=== PATIENT | male | born 1945 | race Caucasian/White ===

== ENCOUNTER 2017-06-03 09:30 | Inpatient (IN) | payer MEDICARE ==
[~2017-06-03] VITALS: Ht 180.3 cm; Wt 79.8 kg
[2017-06-03] VITALS (12 sets, daily range): BP systolic 99–144; BP diastolic 57–96; PULSE 65–169; RESP 20–32; TEMP 98.1–100.2; O2SAT 95–100
--- NOTE | 2017-06-03 10:01 | PD ---
HPI Chief Complaint: Respiratory Distress Time Seen by Provider: 09:39 Travel History International Travel<30 days: No Contact w/Intl Traveler<30days: No Traveled to known affect area: No History of Present Illness HPI This is a 71-year-old gentleman with a history of tobacco use, unknown past medical history, who presents today the EMS with cough and shortness of breath. The patient states that he's been in bed since Thursday. He states he's been weak and short of breath since then. When paramedics arrived they found his O2 sat to be 82. He is placed on 100% nonrebreather which brought up to 99%. He also reports low-grade fevers. The patient felt better with the O2. She has not seen a doctor since 2007. He says at that time he had no medical issues. He does smoke half pack of cigarettes and states he drinks one to 2 beers per day. [facility] Social History Tobacco Use: Yes Allergies-Medications (Allergen,Severity, Reaction): Coded Allergies: No Known Allergies (Unverified , 06/03/17) Reported Meds & Prescriptions Reported Meds & Active Scripts Active No Active Prescriptions or Reported Medications Review of Systems Except as stated in HPI: all other systems reviewed are Neg General / Constitutional: Positive: Fever, Chills HENT: Positive: Lightheadedness, No: Headaches, Neck Stiffness, Neck Pain Cardiovascular: Positive: Tachycardia, No: Chest Pain or Discomfort, Palpitations Respiratory: Positive: Cough (productive with yellow phlegm), Shortness of Breath, Wheezing Gastrointestinal: No: Nausea, Vomiting, Abdominal Pain Musculoskeletal: Positive: Weakness, No: Pain Skin: Positive Lesions (chronic son skin changes on her torso and back.) Neurologic: Positive: Weakness, No: Dizziness, Headache, Change in Mentation Physical Exam Narrative GENERAL: Thin ill appearing gentleman in moderate respiratory discomfort. SKIN: Focused skin assessment warm/dry. HEAD: Atraumatic. Normocephalic. EYES: No scleral icterus. No injection or drainage. ENT: No nasal bleeding or discharge. Mucous membranes pink and moist. NECK: Trachea midline. No JVD. Supple. CARDIOVASCULAR: Tachycardic with normal rhythm. No murmur appreciated. RESPIRATORY: Coarse rhonchi bilaterally. Questionable Rales at the bilateral bases. Tachypnea. GASTROINTESTINAL: Abdomen soft, non-tender, nondistended. MUSCULOSKELETAL: No obvious deformities. No clubbing. No cyanosis. No edema. NEUROLOGICAL: Awake and alert. No obvious cranial nerve deficits. Motor grossly within normal limits. Normal speech. PSYCHIATRIC: Appropriate mood and affect; insight and judgment normal. Data Data Last Documented VS Vital Signs Date Time Temp Pulse Resp B/P Pulse Ox O2 Delivery O2 Flow Rate FiO2 06/03/17 10:00 108 24 144/74 98 Nasal Cannula 4 06/03/17 09:30 100.2 Orders Electrocardiogram (06/03/17 09:39) Complete Blood Count With Diff (06/03/17 09:39) Comprehensive Metabolic Panel (06/03/17 09:39) Lactic Acid Sepsis Protocol (06/03/17 09:39) Ckmb (Isoenzyme) Profile (06/03/17 09:39) Troponin I (06/03/17 09:39) Urinalysis - C+S If Indicated (06/03/17 09:39) Blood Culture (06/03/17 09:39) Sputum Culture And Gram Stain (06/03/17 09:39) Chest, Single Ap (06/03/17 09:39) Arterial Blood Gas (Abg) (06/03/17 09:39) Blood Glucose (06/03/17 09:39) Ecg Monitoring (06/03/17 09:39) Iv Access Insert/Monitor (06/03/17 09:39) Oximetry (06/03/17 09:39) Oxygen Administration (06/03/17 09:39) Ceftriaxone Inj (Rocephin Inj) (06/03/17 11:38) Azithromycin Inj (Zithromax Inj) (06/03/17 11:38) Sodium Chlor 0.9% 1000 Ml Inj (Ns 1000 M (06/03/17 12:30) Admit Order (Ed Use Only) (06/03/17 12:52) Labs Laboratory Tests Test 06/03/17 09:45 White Blood Count 20.0 TH/MM3 Red Blood Count 4.80 MIL/MM3 Hemoglobin 14.4 GM/DL Hematocrit 44.3 % Mean Corpuscular Volume 92.3 FL Mean Corpuscular Hemoglobin 29.9 PG Mean Corpuscular Hemoglobin 32.4 % Concent Red Cell Distribution Width 14.4 % Platelet Count 292 TH/MM3 Mean Platelet Volume 10.7 FL Neutrophils (%) (Auto) 87.1 % Lymphocytes (%) (Auto) 3.7 % Monocytes (%) (Auto) 8.9 % Eosinophils (%) (Auto) 0.0 % Basophils (%) (Auto) 0.3 % Neutrophils # (Auto) 17.4 TH/MM3 Lymphocytes # (Auto) 0.7 TH/MM3 Monocytes # (Auto) 1.8 TH/MM3 Eosinophils # (Auto) 0.0 TH/MM3 Basophils # (Auto) 0.1 TH/MM3 CBC Comment AUTO DIFF Differential Comment AUTO DIFF CONFIRMED Platelet Estimate NORMAL Platelet Morphology Comment NORMAL Blood Gas Puncture Site RT RADIAL Blood Gas Patient Temperature 98.6 Blood Gas HCO3 29 mmol/L Blood Gas Base Excess 3.4 mmol/L Blood Gas Oxygen Saturation 95 % Arterial Blood pH 7.36 Arterial Blood Partial 52 mmHg Pressure CO2 Arterial Blood Partial 93 mmHg Pressure O2 Arterial Blood Oxygen Content 19.2 Vol % Arterial Blood 1.6 % Carboxyhemoglobin Arterial Blood Methemoglobin 0.8 % Blood Gas Hemoglobin 14.4 G/DL Oxygen Delivery Device NASAL CANNULA Blood Gas Liter Flow 4 L/M Sodium Level 138 MEQ/L Potassium Level 4.7 MEQ/L Chloride Level 100 MEQ/L Carbon Dioxide Level 29.5 MEQ/L Anion Gap 9 MEQ/L Blood Urea Nitrogen 33 MG/DL Creatinine 1.16 MG/DL Estimat Glomerular Filtration 62 ML/MIN Rate Random Glucose 126 MG/DL Lactic Acid Level 1.6 mmol/L Calcium Level 9.7 MG/DL Total Bilirubin 0.8 MG/DL Aspartate Amino Transf 29 U/L (AST/SGOT) Alanine Aminotransferase 27 U/L (ALT/SGPT) Alkaline Phosphatase 78 U/L Total Creatine Kinase 59 U/L Troponin I LESS THAN 0.02 NG/ML Total Protein 8.2 GM/DL Albumin 3.0 GM/DL [facility] Medical Decision Making Medical Screen Exam Complete: Yes Emergency Medical Condition: Yes Differential Diagnosis Pneumonia versus CHF versus rhonchi this versus sepsis versus metabolic derangement Narrative Course 71-year-old male with a history of tobaccoism, presents today with complaints of fever and cough. When paramedics arrived they found his O2 sat to be 82%. He placed him on nonrebreather which brought his sats up to 99%. The patient states he feels much improved. He states he's been in bed for 4 days. Chest x- ray shows chronic emphysematous changes. Clinically he has pneumonia. He's been started on Rocephin and Zithromax. Lactic acid was 1.6 white blood cell count was 20,000. There is a call out to the admitting service for admission. Sepsis Criteria SIRS Criteria (2 or more): Heart rate over 90, RR > 20 or PaCO2 < 32, WBC > 94761, < 4000 or > 10% bands Diagnosis Primary Impression: Sepsis Additional Impressions: Pneumonia Hypoxemia Tobacco abuse Admitting Information Admitting Physician Requests: Admit Scripts No Active Prescriptions or Reported Meds Samuel Raya MD Jun 03, 2017 10:01
[2017-06-03 10:02] LABS: BLOOD GAS BASE EXCESS 3.4 mmol/L (-2-2); BLOOD GAS CARBOXYHEMOGLOBIN 1.6 % (0-4); BLOOD GAS HCO3 29 mmol/L (22-26); BLOOD GAS METHEMOGLOBIN 0.8 % (0-2); BLOOD GAS O2 HGB SATURATION 95 % (90-100); BLOOD GAS OXYGEN CONTENT 19.2 Vol % (12.0-20.0); BLOOD GAS PCO2 52 mmHg (38-42); BLOOD GAS PO2 93 mmHg (61-120); BLOOD GAS TOTAL HGB 14.4 G/DL (12.0-16.0); CRITICAL VALUE YES; DRAW SITE RT RADIAL; LITER FLOW 4 L/M; OXYGEN DEVICE NASAL CANNULA; TEMP CORR TO 98.6
[2017-06-03 10:03] LABS: NUMBER OF ARTERIAL PUNCTURES 1; STAT YES; ULNAR PULSE PRESENT
[2017-06-03 10:10] LABS: AUTOMATED NEUTROPHIL # 17.4 TH/MM3 (1.8-7.7); BASOPHIL # 0.1 TH/MM3 (0-0.2); BASOPHIL % 0.3 % (0.0-2.0); HEMATOCRIT 44.3 % (39.0-51.0); LYMPH % 3.7 % (9.0-44.0); LYMPHOCYTE # 0.7 TH/MM3 (1.0-4.8); MEAN CELL VOLUME 92.3 FL (80.0-100.0); MEAN CORPUSCULAR HEMOGLOBIN 29.9 PG (27.0-34.0); MEAN CORPUSCULAR HGB CONC 32.4 % (32.0-36.0); MONO % 8.9 % (0.0-8.0); NEUT % 87.1 % (16.0-70.0); PLATELET COUNT 292 TH/MM3 (150-450); RED CELL DISTRIBUTION WIDTH 14.4 % (11.6-17.2)
[2017-06-03 10:16] LABS: HEMO FLAGS AUTO DIFF
[2017-06-03 10:34] LABS: ALT (GPT) 27 U/L (12-78); ANION GAP 9 MEQ/L (5-15); AST (GOT) 29 U/L (15-37); BICARBONATE 29.5 MEQ/L (21.0-32.0); BLOOD UREA NITROGEN 33 MG/DL (7-18); CHLORIDE 100 MEQ/L (98-107); GLOMERULAR FILTRATION RATE 62 ML/MIN (>89); SODIUM (NA) 138 MEQ/L (136-145)
[2017-06-03 10:35] LABS: ALKALINE PHOSPHATASE 78 U/L (45-117); POTASSIUM 4.7 MEQ/L (3.5-5.1); TOTAL BILIRUBIN ADULT 0.8 MG/DL (0.2-1.0)
--- NOTE | 2017-06-03 10:36 | RADRPT ---
EXAM DATE/TIME: 06/03/2017 10:00 [facility] COMPARISON: No previous studies available for comparison. INDICATIONS : Short of breath and cough for 1 week. MEDICAL HISTORY : None. SURGICAL HISTORY : None. ENCOUNTER: Initial ACUITY: 1 week PAIN SCORE: 0/10 LOCATION: Bilateral chest FINDINGS: 2 portable frontal views of the chest show lungs to be hyperaerated. Prominent interstitial markings seen within the hilar structures and lower lobes bilaterally. Bullous emphysematous changes within th e apices. Calcified granulomas involving the right upper lobe. No acute infiltrate or effusion. Heart normal in size. Musculoskeletal structures are unremarkable. CONCLUSION: 1. Hyperinflation consistent with bullous emphysematous change. 2. Chronic interstitial changes. Riky Locke Jr., MD on June 03, 2017 at 10:32 Board Certified Radiologist. This report was verified electronically.
[2017-06-03 10:37] LABS: CREATINE KINASE 59 U/L (39-308)
[2017-06-03 11:15] LABS: PLATELET ESTIMATE SMEAR NORMAL (NORMAL); PLATELET MORPHOLOGY NORMAL (NORMAL); SCAN/DIFF AUTO DIFF CONFIRMED
[2017-06-03] MEDS ORDERED: cefTRIAXone INJ 2,000 MG in SODIUM CHLORIDE 0.9% INJ 100 ML IV STA (11:38)
[2017-06-03] MEDS ORDERED: AZITHROMYCIN INJ 500 MG in SODIUM CHLOR 0.9% 250 ML INJ 250 ML IV STA (11:38)
[2017-06-03] MEDS ORDERED: SODIUM CHLOR 0.9% 1000 ML INJ 1,000 ML IV SCH (12:30)
[2017-06-03] MEDS ORDERED: LACTULOSE SYRUP 20 GM/30 ML CUP PO PRN (13:15)
[2017-06-03] MEDS ORDERED: oxyCODONE/ACETAMINOPHEN 10 MG/325 MG TAB PO PRN (13:15)
[2017-06-03] MEDS ORDERED: NALOXONE HCL 0.4 MG/ML AMP IV PRN (13:15)
[2017-06-03] MEDS ORDERED: ONDANSETRON HCL 4 MG/2 ML VIAL IVP PRN (13:15)
[2017-06-03] MEDS ORDERED: BISACODYL 10 MG SUPP RECTAL PRN (13:15)
[2017-06-03] MEDS ORDERED: PROCHLORPERAZINE 25 MG SUPP RECTAL PRN (13:15)
[2017-06-03] MEDS ORDERED: RESP: ALBUTEROL 2.5 MG/3 ML NEB (PRN) INH (13:15)
[2017-06-03] MEDS ORDERED: MORPHINE SULFATE 4 MG/ML INJ IV PRN ×3 (13:15)
[2017-06-03] MEDS ORDERED: MAGNESIUM HYDROXIDE SUSP 30 ML CUP PO PRN (13:15)
[2017-06-03] MEDS ORDERED: ACETAMINOPHEN 325 MG TAB PO PRN ×2 (13:15)
[2017-06-03] MEDS ORDERED: SODIUM CHLORIDE 0.9% FLUSH 10 ML FLUSH IV FLUSH PRN ×3 (13:15)
[2017-06-03] MEDS ORDERED: SENNOSIDES 8.6 MG TAB PO PRN (13:15)
[2017-06-03] MEDS ORDERED: oxyCODONE/ACETAMINOPHEN 5 MG/325 MG TAB PO PRN (13:15)
--- NOTE | 2017-06-03 14:11 | HHI.HP ---
[facility] Service [facility] Primary Care Physician No Primary Care Physician Admission Diagnosis sepsis, pneumonia, hypoxemia, tobacco abuse. Diagnoses: (1) Pneumonia Diagnosis: Principal (2) Sepsis Diagnosis: Principal (3) Tobacco abuse Diagnosis: Secondary (4) Hypoxemia Diagnosis: Principal (5) COPD (chronic obstructive pulmonary disease) Diagnosis: Secondary (6) COPD exacerbation Diagnosis: Principal Chief Complaint: Respiratory distress Travel History International Travel<30 Days: No Contact w/Intl Traveler <30 Da: No Traveled to Known Affected Are: No History of Present Illness This is a 71-year-old gentleman with a history of tobacco use, unknown past medical history, who presents today VIA EMS with cough and shortness of breath. The patient states that he's been in bed since Thursday. He states he's been weak and short of breath since then. When paramedics arrived they found his O2 sat to be 82. He is placed on 100% nonrebreather which brought up to 99% . He also reports low-grade fevers. The patient felt better with the O2. He has not seen a doctor since 2007. He says at that time he had no medical issues. He does smoke half pack of cigarettes had previously been up to 2 packs a day. Then down to one pack and then now to half pack a day. And states he drinks one to 2 beers per day. Is not currently taking any medication. His is been wanting him to come to the hospital since last week Review of Systems Constitutional: COMPLAINS OF: Fatigue, Fever, Chills Endocrine: DENIES: Heat/cold intolerance, Polydipsia Eyes: DENIES: Blurred vision, Diplopia, Eye inflammation, Eye pain Ears, nose, mouth, throat: DENIES: Tinnitus, Hearing loss, Vertigo Respiratory: COMPLAINS OF: Cough, Wheezing, Sputum production, Shortness of breath Cardiovascular: DENIES: Chest pain, Palpitations, Syncope, Dyspnea on Exertion , PND, Lower Extremity Edema Gastrointestinal: DENIES: Abdominal pain, Black stools, Bloody stools, Constipation Musculoskeletal: DENIES: Joint pain, Muscle aches, Stiffness, Joint Swelling, Back pain Integumentary: DENIES: Abnormal pigmentation, Nail changes Hematologic/lymphatic: DENIES: Bruising, Lymphadenopathy Immunologic/allergic: DENIES: Eczema, Urticaria Neurologic: DENIES: Abnormal gait, Headache, Localized weakness, Paresthesias, Seizures, Speech Problems, Tremor Psychiatric: DENIES: Anxiety, Confusion, Mood changes, Depression, Hallucinations, Agitation, Suicidal Ideation, Homicidal Ideation Past Family Social History Past Medical History Denies Past Surgical History Denies Reported Medications None Just cigarettes and beer Allergies: Coded Allergies: No Known Allergies (Unverified , 06/03/17) Active Ordered Medications Current Medications Ceftriaxone Sodium 2000 mg/ Sodium Chloride 100 ml @ 200 mls/hr ONCE STAT IV Last administered on 06/03/17 12:47; Start 06/03/17 at 11:38; Stop 06/03/17 at 12:07; Status DC Azithromycin 500 mg/Sodium Chloride 250 ml @ 250 mls/hr ONCE STAT IV Last administered on 06/03/17 13:35; Start 06/03/17 at 11:38; Stop 06/03/17 at 12:37 ; Status DC Sodium Chloride 1,000 ml @ 125 mls/hr Q8H IV Last administered on 06/03/17 12 :48; Start 06/03/17 at 12:30 Sodium Chloride (NS 1000 ml Inj) 1,000 ml @ 75 mls/hr [id number] IV ; Start at 13:05; Status UNV Sodium Chloride (NS Flush) 2 ml BID IV FLUSH ; Start 06/03/17 at 21:00; Status UNV Sodium Chloride (NS Flush) 2 ml UNSCH PRN IV FLUSH FLUSH AFTER USING IV ACCESS ; Start 06/03/17 at 13:15; Status UNV Albuterol/ Ipratropium (Duoneb Neb) 1 ampule Q4HR NEB INH ; Start 06/03/17 at 16:00; Status UNV Albuterol Sulfate (Albuterol Neb) 2.5 mg Q2HR NEB PRN INH SHORTNESS OF BREATH; Start 06/03/17 at 13:15; Status UNV Budesonide/ Formoterol Fumarate (Symbicort 160-4.5 Inh) 2 puff Q12HR INH ; Start 06/03/17 at 21:00; Status UNV Methylprednisolone Sodium Succinate 60 mg 60 mg Q6H IVP ; Start 06/03/17 at 13: 15; Status UNV Ceftriaxone Sodium/Sodium Chloride (Rocephin Inj/NS Inj) 100 ml @ 200 mls/hr Q24H IV ; Start 06/04/17 at 12:00; Status UNV Nicotine 1 patch 1 patch DAILY TD ; Start 06/03/17 at 13:15; Status UNV Azithromycin/ Sodium Chloride (Zithromax Inj/ NS 250 ml Inj) 250 ml @ 250 mls/ hr Q24H IV ; Start 06/04/17 at 12:00; Status UNV Enoxaparin Sodium (Lovenox Inj) 40 mg Q24H SQ ; Start 06/03/17 at 13:15; Status UNV Sodium Chloride (NS Flush) 2 ml UNSCH PRN IV FLUSH FLUSH AFTER USING IV ACCESS ; Start 06/03/17 at 13:15; Status UNV Sodium Chloride (NS Flush) 2 ml BID IV FLUSH ; Start 06/03/17 at 21:00; Status UNV Acetaminophen (Tylenol) 650 mg Q4H PRN PO TEMP > 100.4; Start 06/03/17 at 13:15 ; Status UNV Ondansetron HCl (Zofran Inj) 4 mg Q6H PRN IVP NAUSEA OR VOMITING; Start at 13:15; Status UNV Prochlorperazine (Compazine Supp) 25 mg Q12H PRN NV NAUSEA OR VOMITING; Start 06/03/17 at 13:15; Status UNV Acetaminophen (Tylenol) 650 mg Q6H PRN PO PAIN SCALE 1 TO 2; Start 06/03/17 at 13:15; Status UNV Oxycodone/ Acetaminophen (Percocet 5-325 Mg) 1 tab Q6H PRN PO PAIN SCALE 3 TO 5; Start 06/03/17 at 13:15; Status UNV Oxycodone/ Acetaminophen (Percocet 10-325 Mg) 1 tab Q6H PRN PO PAIN SCALE 6 TO 10; Start 06/03/17 at 13:15; Status UNV Morphine Sulfate (Morphine Inj) 2 mg Q3H PRN IV Pain 3-5; if unable to take PO ; Start 06/03/17 at 13:15; Status UNV Morphine Sulfate (Morphine Inj) 4 mg Q3H PRN IV Pain 6-10;if unable to take PO ; Start 06/03/17 at 13:15; Status UNV Morphine Sulfate (Morphine Inj) 4 mg Q3H PRN IV BREAKTHROUGH PAIN; Start at 13:15; Status UNV Naloxone HCl (Narcan Inj) 0.4 mg UNSCH PRN IV SEE LABEL COMMENTS; Start at 13:15; Status UNV Senna/Docusate Sodium (Roxanna-Colace) 1 tab BID PO ; Start 06/03/17 at 21:00; Status UNV Magnesium Hydroxide (Milk Of Magnesia Liq) 30 ml Q12H PRN PO MILD - MODERATE CONSTIPATION; Start 06/03/17 at 13:15; Status UNV Sennosides (Senokot) 17.2 mg Q12H PRN PO MODERATE - SEVERE CONSTIPATION; Start 06/03/17 at 13:15; Status UNV Bisacodyl (Dulcolax Supp) 10 mg DAILY PRN RECTAL SEVERE CONSITIPATION; Start at 13:15; Status UNV Lactulose (Lactulose Liq) 30 ml DAILY PRN PO SEVERE CONSITIPATION; Start at 13:15; Status UNV Sodium Chloride (NS Flush) 2 ml UNSCH PRN IV FLUSH FLUSH AFTER USING IV ACCESS ; Start 06/03/17 at 13:15; Status UNV Sodium Chloride (NS Flush) 2 ml BID IV FLUSH ; Start 06/03/17 at 21:00; Status UNV Magnesium Oxide (Mag-Ox) 400 mg BID PO ; Start 06/03/17 at 21:00; Status UNV Guaifenesin (Mucinex Er) 600 mg BID PO ; Start 06/03/17 at 13:15; Status UNV Family History Tobacco possibly hypertension Social History Used to smoke up to 2 packs a day then down to one pack a day and now lately down to half pack a day. Drinks 1-2 beers daily Physical Exam Vital Signs Vital Signs Date Time Temp Pulse Resp B/P Pulse Ox O2 Delivery O2 Flow Rate FiO2 06/03/17 11:00 103 20 135/96 98 Nasal Cannula 4 06/03/17 10:00 108 24 144/74 98 Nasal Cannula 4 06/03/17 09:30 97 Nasal Cannula 4 06/03/17 09:30 100.2 122 32 106/64 97 06/03/17 09:30 97 Nasal Cannula 4 06/03/17 09:30 100.2 122 32 105/64 97 Nasal Cannula 4 06/03/17 09:30 Nasal Cannula 4 Physical Exam GENERAL: This is a well-nourished, well-developed patient, in moderate distress appears to have some wasting in his chest area SKIN: No rashes, ecchymoses or lesions. Cool and dry. HEAD: Atraumatic. Normocephalic. No temporal or scalp tenderness. EYES: Pupils equal round and reactive. Extraocular motions intact. No scleral icterus. No injection or drainage. ENT: Nose without bleeding, purulent drainage or septal hematoma. Throat without erythema, tonsillar hypertrophy or exudate. Uvula midline. Airway patent. Tongue is midline NECK: Trachea midline. No JVD or lymphadenopathy. Supple, nontender, no meningeal signs. CARDIOVASCULAR: Regular rate and rhythm without murmurs, gallops, or rubs. S1- S2 no S3 or S4 RESPIRATORY: Coarse breath sounds. Breath sounds equal bilaterally. Bronchitis and wheezes throughout GASTROINTESTINAL: Abdomen soft, non-tender, nondistended. No hepato-splenomegaly , or palpable masses. No guarding. MUSCULOSKELETAL: Extremities without clubbing, cyanosis, or edema. No joint tenderness, effusion, or edema noted. No calf tenderness. Negative Homans sign bilaterally. NEUROLOGICAL: Awake and alert. Cranial nerves II through XII intact. Motor and sensory grossly within normal limits. Five out of 5 muscle strength in all muscle groups. Normal speech. Insight and judgment good mood and behaviors appropriate Laboratory Laboratory Tests Test 06/03/17 09:45 White Blood Count 20.0 Red Blood Count 4.80 Hemoglobin 14.4 Hematocrit 44.3 Mean Corpuscular Volume 92.3 Mean Corpuscular Hemoglobin 29.9 Mean Corpuscular Hemoglobin 32.4 Concent Red Cell Distribution Width 14.4 Platelet Count 292 Mean Platelet Volume 10.7 Neutrophils (%) (Auto) 87.1 Lymphocytes (%) (Auto) 3.7 Monocytes (%) (Auto) 8.9 Eosinophils (%) (Auto) 0.0 Basophils (%) (Auto) 0.3 Neutrophils # (Auto) 17.4 Lymphocytes # (Auto) 0.7 Monocytes # (Auto) 1.8 Eosinophils # (Auto) 0.0 Basophils # (Auto) 0.1 CBC Comment AUTO DIFF Differential Comment AUTO DIFF CONFIRMED Platelet Estimate NORMAL Platelet Morphology Comment NORMAL Blood Gas Puncture Site RT RADIAL Blood Gas Patient Temperature 98.6 Blood Gas HCO3 29 Blood Gas Base Excess 3.4 Blood Gas Oxygen Saturation 95 Arterial Blood pH 7.36 Arterial Blood Partial 52 Pressure CO2 Arterial Blood Partial 93 Pressure O2 Arterial Blood Oxygen Content 19.2 Arterial Blood 1.6 Carboxyhemoglobin Arterial Blood Methemoglobin 0.8 Blood Gas Hemoglobin 14.4 Oxygen Delivery Device NASAL CANNULA Blood Gas Liter Flow 4 Sodium Level 138 Potassium Level 4.7 Chloride Level 100 Carbon Dioxide Level 29.5 Anion Gap 9 Blood Urea Nitrogen 33 Creatinine 1.16 Estimat Glomerular Filtration 62 Rate Random Glucose 126 Lactic Acid Level 1.6 Calcium Level 9.7 Total Bilirubin 0.8 Aspartate Amino Transf 29 (AST/SGOT) Alanine Aminotransferase 27 (ALT/SGPT) Alkaline Phosphatase 78 Total Creatine Kinase 59 Troponin I LESS THAN 0.02 Total Protein 8.2 Albumin 3.0 Date/Time Procedure Status Source Growth 06/03/17 09:50 Gram Stain Received Sputum Expectorated Sputum Pending 06/03/17 09:50 Sputum Culture Received Sputum Expectorated Sputum Pending 06/03/17 09:45 Aerobic Blood Culture Received Blood Peripheral Pending 06/03/17 09:45 Anaerobic Blood Culture Received Blood Peripheral Pending Result Diagram: 06/03/1745 06/03/1745 Imaging Last Impressions Chest X-Ray 06/03/1739 Signed Impressions: Service Date/Time: Saturday, June 03, 2017 10:00 - CONCLUSION: 1. Hyperinflation consistent with bullous emphysematous change. 2. Chronic interstitial changes. Riky Locke Jr., MD Septic Shock Reassessment Heart: Regular rate and rhythm Lungs: Course, Diminished Skin: Warm, Dry Peripheral Pulses: Bounding Right Radial Bounding Left Radial Bounding Right Popliteal Bounding Left Popliteal Bounding Right Dorsalis Pedis Bounding Left Dorsalis Pedis Bounding Right Posterior Tibial Bounding Left Posterior Tibial Capillary Refill: Brisk Assessment and Plan Problem List: (1) Hypoxemia ICD Code: R09.02 Status: Acute (2) Tobacco abuse ICD Code: Z72.0 Status: Acute (3) Sepsis ICD Code: A41.9 Status: Acute (4) COPD (chronic obstructive pulmonary disease) ICD Code: J44.9 Status: Acute (5) Pneumonia ICD Code: J18.9 Status: Acute (6) COPD exacerbation ICD Code: J44.1 Status: Acute Assessment and Plan Pneumonia continue on incentive spirometry continue on Mucinex continue on DuoNeb's continue on Zithromax and Rocephin IPAQ tenia continue on oxygen with incentive spirometry and Mucinex COPD exacerbation NicoDerm patch. Solu-Medrol Tobacco abuse smoking cessation recommended NicoDerm patch Sepsis aggressive fluid rehydration and antibiotics treatment Chronic alcohol use Continued DVT and GI prophylaxis Physician Certification 2 Midnight Certification Type: Admission for Inpatient Services Order for Inpatient Services The services are ordered in accordance with Medicare regulations or non- Medicare payer requirements, as applicable. In the case of services not specified as inpatient-only, they are appropriately provided as inpatient services in accordance with the 2-midnight benchmark. Estimated LOS (days): 4 4 days is the estimated time the patient will need to remain in the hospital, assuming treatment plan goals are met and no additional complications. Post-Hospital Plan: Not yet determined Shekhar Subramanian DO Jun 03, 2017 14:11
--- NOTE | 2017-06-03 14:40 | EKG ---
Date Performed: 06/03/2017 Time Performed: 09:46:23 PTAGE: 71 years EKG: SINUS TACHYCARDIA WITH SHORT OH INTERVAL ABNORMAL RHYTHM ECG NO PREVIOUS TRACING DOCTOR: Edgar Forbes Interpretating Date/Time 06/03/2017 14:38:52
[2017-06-03] MEDS ORDERED: ENOXAPARIN SODIUM 40 MG/0.4 ML SYRINGE SQ SCH (15:00)
[2017-06-03] MEDS: guaiFENesin E.R. 600 MG TAB PO SCH ×2 (15:40→22:10)
[2017-06-03] MEDS: PANTOPRAZOLE SOD 40 MG DELAYED RELEASE TAB PO SCH (15:40)
[2017-06-03] MEDS: SODIUM CHLOR 0.9% 1000 ML INJ 1,000 ML IV SCH (15:41)
[2017-06-03] MEDS: methylPREDNISolone SOD SUCC 125 MG/2 ML VIAL IVP SCH ×2 (15:42→22:09)
[2017-06-03] MEDS: NICOTINE 21 MG/24 HR PATCH TD SCH (15:42)
[2017-06-03] MEDS: RESP: ALBUTEROL 2.5 MG/IPRATROPIUM 0.5 MG NEB (SCH) INH ×2 (15:58→19:23)
[2017-06-03 17:01] LABS: CREATINE KINASE 42 U/L (39-308)
[2017-06-03 20:23] LABS: CREATINE KINASE 113 U/L (39-308)
[2017-06-03] MEDS: BUDESONIDE-FORMOTEROL 160/4.5 MCG INHALER INH SCH (21:00)
[2017-06-03] MEDS: DOCUSATE SODIUM 50 MG/SENNA 8.6 MG TAB PO SCH (21:00)
[2017-06-03] MEDS ORDERED: SODIUM CHLORIDE 0.9% FLUSH 10 ML FLUSH IV FLUSH SCH ×2 (21:00)
[2017-06-03] MEDS: MAGNESIUM OXIDE 400 MG TAB PO SCH (22:10)
[2017-06-03] MEDS: REMOVE OLD NICODERM (NICOTINE) PATCH T-DERMAL SCH (22:11)
[2017-06-03] MEDS: SODIUM CHLORIDE 0.9% FLUSH 10 ML FLUSH IV FLUSH SCH (22:11)
[2017-06-03 23:00] LABS: BACTERIA, URINE RARE /hpf; BLOOD, URINE NEG (NEG); GLUCOSE,URINE NEG (NEG); HYALINE CAST, URINE 95 /lpf (RARE); KETONE, URINE NEG (NEG); MUCUS URINE FEW /lpf (OCC); NITRITE,URINE NEG (NEG); PH, URINE 5.5 (5.0-8.5); RENAL EPITHELIAL CELLS <1 /hpf; SQUAMOUS EPITHELIAL CELL URINE 2 /hpf (0-5); TRANSITIONAL EPI CELLS, URINE 1 /hpf; URINE COLOR YELLOW (YELLW/STRAW)
[2017-06-03] MEDS ORDERED: DILTIAZEM HCL 25 MG/5 ML VIAL IVP ONE (23:00)
[2017-06-03 23:01] LABS: COMMENT (UR) CATH-CULTURE IND; CULTURE IF INDICATED CATH CULTURE IND
--- NOTE | 2017-06-03 23:17 | HHI.FPPN ---
Addendum to progress note ADDENDUM Reason for addendum: Additonal documentation Additional information Residents paged regarding Halicat. Nurses report that they noticed sudden increase in heart rate up to 180s. No other symptoms at that time. Per patient, he states he was sleeping during the event. Nurses state he also had a short run of V-tach. Pt reports feeling mildly anxious, but no other symptoms. Denies any chest pain or palpitations. Does have some shortness of breath, but nothing new, besides his pneumonia. Vitals: HR 180-190s Gen: Lying in bed, NAD Heart: Tachycardic, irregularly irregular Lungs: Coarse breath sounds. Wheezing throughout Ext: no edema A/P: 71 y/o male with history of COPD admitted for pneumonia, now with tachycardia. No history of heart disease per pt. EKG shows atrial fibrillation. Pt with new onset atrial fibrillation with RVR. -Stat CBC, BMP, troponins -Cardizem gtt -Continue tele and monitor HR -Covering physician contacted and to take over further management sdw Dr. Mohit Reyes,Anant Go MD, R2 Jun 03, 2017 23:17
[2017-06-03 23:20] LABS: BLOOD GAS BASE EXCESS 0.4 mmol/L (-2-2); BLOOD GAS HCO3 26 mmol/L (22-26); BLOOD GAS METHEMOGLOBIN 0.8 % (0-2); BLOOD GAS O2 HGB SATURATION 96 % (90-100); BLOOD GAS OXYGEN CONTENT 20.1 Vol % (12.0-20.0); BLOOD GAS PCO2 55 mmHg (38-42); BLOOD GAS PO2 99 mmHg (61-120); BLOOD GAS TOTAL HGB 14.9 G/DL (12.0-16.0); TEMP CORR TO 98.6
[2017-06-03 23:21] LABS: CRITICAL VALUE YES; DRAW SITE LT RADIAL; LITER FLOW 4 L/M; NUMBER OF ARTERIAL PUNCTURES 1; OXYGEN DEVICE NASAL CANNULA; STAT YES; ULNAR PULSE PRESENT
[2017-06-03] MEDS ORDERED: ADENOSINE IV SOLN 3 MG/ML 2 ML VIAL IV PUSH ONE ×3 (23:30)
--- NOTE | 2017-06-03 23:41 | RADRPT ---
EXAM DATE/TIME: 06/03/2017 23:16 [facility] COMPARISON: CHEST SINGLE AP, June 03, 2017, 10:00. INDICATIONS : Short of breath. MEDICAL HISTORY : None. SURGICAL HISTORY : None. ENCOUNTER: Subsequent ACUITY: 1 week PAIN SCORE: 0/10 LOCATION: Bilateral chest FINDINGS: 2 portable frontal views of the chest show lungs to be hyperaerated. Prominent interstitial markings seen within the hilar structures and lower lobes bilaterally. Bullous emphysematous changes within th e apices. No evidence of pneumothorax. Calcified granulomas involving the right upper lobe. No acut e infiltrate or effusion. Heart normal in size. Musculoskeletal structures are unremarkable. CONCLUSION: Hyperaerated lungs, similar to prior. No acute findings. Riky Davis MD on June 03, 2017 at 23:39 Board Certified Radiologist. This report was verified electronically.
[2017-06-03] MEDS: DILTIAZEM INJ 125 MG in SODIUM CHLORIDE 0.9% INJ 100 ML IV SCH (23:45)
--- NOTE | 2017-06-03 23:58 | HHI.PR ---
Addendum to Inpatient Note Addendum Reason: Additional Documentation Additional Information Alexandert was called on this patient because patient was noted to be tachycardic heart rate in the 180s. He was comfortable, only had c/o shortness of breath which was present on admission. resident team had ordered for cardizem bolus with a drip at the time. Came to see patient at the bedside. The patient is awake, alert, oriented. He denies any chest pains or feeling of palpitations. He however reports of shortness of breath. He did not notice anything particular worsening. No fever. Denies any nausea or vomiting or diarrhea. he denies any hematemesis/ hematochezia/melena. Chart reviewed. Patient was saturating 96% on 4 L nasal cannula. Heart rate was 180-190 upon my arrival. Blood pressure around 134/80. On exam, Heart rate is irregularly irregular, no murmur appreciated. Noted to have quite a congested cough. Bilateral equal air entry. No wheezing or rales. Abdomen soft and nontender. No rebound. Bilateral lower extremities did not reveal any significant edema. Neurological exam grossly normal. Impression: Persistent tachycardiapossible patient has underlying undiagnosed atrial fibrillation. More than likely he also has acute medical condition causing A. fib. Dyspnea/hypoxiasecondary to pneumonia. Given persistent tachycardia, would need to rule out pulmonary embolism. Borderline hypotensionthis was noted post Cardizem administration. Possible septic shock as well. Plan: Patient was given Cardizem 20 mg IV push first. His heart rate did not change. EKGpersonally reviewed. Heart rate even in the 200s, with possible SVT pattern. Therefore tried at a nursing 6 mg IV, followed by 12 mg IV. Again, there was no difference in heart rate. Therefore decided to start patient on Cardizem drip. In the meanwhile, obtain chest x-ray. Reviewed personally. Bilateral hyperinflated lungs, there is no pneumothorax/pleural effusions. No significant pulmonary venous congestion. Stat labs ordered. ABGpersonally reviewed. Hypoxia, with mild respiratory acidosis. Placed patient on BiPAP 12 over 5 FiO2 28%. Transportation to ICU status. And limiting well, patient's labs have resulted which revealed BNP of 118. No significant electrolyte abnormalities. Therefore start patient on IV fluids, 500 cc normal saline bolus. Have recheck patient after the finish of this bolus. He was much more awake, on BiPAP, in intensive care unit more comfortable. Heart rate remains to be 160 though. There for additional 1 L normal saline bolus ordered. We'll follow closely in ICU setting. Patient was given Rocephin and azithromycin in ER. Discontinue Rocephin and azithromycin at present. Will start patient on Levaquin 750 mg IV every 24 hours. DVT prophylaxisstart on Lovenox therapeutic dose now S d-dimer was elevated. When patient is stable, consider sending patient for CT pulmonary angiogram. GI prophylaxison pantoprazole. critical care time 40min Cheryl Varner MD Jun 03, 2017 23:58
[2017-06-04] VITALS (32 sets, daily range): BP systolic 18–115; BP diastolic 50–69; PULSE 136–177; RESP 16–35; TEMP 98.5–99.5; O2SAT 95–100
[2017-06-04 00:11] LABS: AUTOMATED NEUTROPHIL # 13.8 TH/MM3 (1.8-7.7); BASOPHIL % 0.1 % (0.0-2.0); HEMATOCRIT 40.4 % (39.0-51.0); HEMO FLAGS DIFF FINAL; LYMPH % 2.3 % (9.0-44.0); LYMPHOCYTE # 0.3 TH/MM3 (1.0-4.8); MEAN CELL VOLUME 93.2 FL (80.0-100.0); MEAN CORPUSCULAR HEMOGLOBIN 30.2 PG (27.0-34.0); MEAN CORPUSCULAR HGB CONC 32.5 % (32.0-36.0); MONO % 1.4 % (0.0-8.0); NEUT % 96.2 % (16.0-70.0); PLATELET COUNT 260 TH/MM3 (150-450); RED BLOOD COUNT 4.34 MIL/MM3 (4.50-5.90); RED CELL DISTRIBUTION WIDTH 14.3 % (11.6-17.2); WHITE BLOOD COUNT 14.3 TH/MM3 (4.0-11.0)
[2017-06-04 00:39] LABS: ALT (GPT) 23 U/L (12-78); ANION GAP 9 MEQ/L (5-15); AST (GOT) 19 U/L (15-37); BICARBONATE 27.5 MEQ/L (21.0-32.0); BLOOD UREA NITROGEN 41 MG/DL (7-18); CHLORIDE 101 MEQ/L (98-107); GLOMERULAR FILTRATION RATE 68 ML/MIN (>89); MAGNESIUM 2.6 MG/DL (1.5-2.5); POTASSIUM 4.2 MEQ/L (3.5-5.1); SODIUM (NA) 137 MEQ/L (136-145)
[2017-06-04] MEDS ORDERED: ENOXAPARIN SODIUM 80 MG/0.8 ML SYRINGE SQ ONE (01:15)
[2017-06-04] MEDS ORDERED: SODIUM CHLORID 0.9% 500 ML INJ 500 ML IV ONE (01:15)
[2017-06-04 01:28] LABS: ALKALINE PHOSPHATASE 73 U/L (45-117); TOTAL BILIRUBIN ADULT 0.4 MG/DL (0.2-1.0)
[2017-06-04] MEDS ORDERED: MISCELLANEOUS NURSING INFORMATION XX SCH (01:45)
[2017-06-04] MEDS ORDERED: CHLORHEXIDINE GLUCONATE 2 % 1 PACK (2 CLOTHS) TOP PRN (01:45)
[2017-06-04] MEDS: LEVOFLOXACIN 750 MG PREMIX INJ 150 ML IV SCH (02:00)
[2017-06-04] MEDS: CHLORHEXIDINE GLUCONATE 2 % 1 PACK (2 CLOTHS) TOP SCH (02:00)
[2017-06-04] MEDS: methylPREDNISolone SOD SUCC 125 MG/2 ML VIAL IVP SCH ×3 (03:17→15:25)
[2017-06-04] MEDS: RESP: ALBUTEROL 2.5 MG/IPRATROPIUM 0.5 MG NEB (SCH) INH ×5 (04:09→23:36)
[2017-06-04] MEDS ORDERED: SODIUM CHLOR 0.9% 1000 ML INJ 1,000 ML IV ONE ×2 (05:00→10:45)
[2017-06-04] MEDS: SODIUM CHLOR 0.9% 1000 ML INJ 1,000 ML IV SCH ×4 (05:16→18:36)
[2017-06-04 06:19] LABS: AUTOMATED NEUTROPHIL # 11.6 TH/MM3 (1.8-7.7); BASOPHIL % 0.2 % (0.0-2.0); HEMATOCRIT 38.1 % (39.0-51.0); HEMO FLAGS DIFF FINAL; LYMPH % 3.7 % (9.0-44.0); LYMPHOCYTE # 0.5 TH/MM3 (1.0-4.8); MEAN CELL VOLUME 93.9 FL (80.0-100.0); MEAN CORPUSCULAR HEMOGLOBIN 30.5 PG (27.0-34.0); MEAN CORPUSCULAR HGB CONC 32.5 % (32.0-36.0); MONO % 2.5 % (0.0-8.0); NEUT % 93.6 % (16.0-70.0); PLATELET COUNT 248 TH/MM3 (150-450); RED BLOOD COUNT 4.06 MIL/MM3 (4.50-5.90); WHITE BLOOD COUNT 12.4 TH/MM3 (4.0-11.0)
[2017-06-04 06:40] LABS: ANION GAP 6 MEQ/L (5-15); AST (GOT) 18 U/L (15-37); BICARBONATE 28.9 MEQ/L (21.0-32.0); BLOOD UREA NITROGEN 39 MG/DL (7-18); CHLORIDE 103 MEQ/L (98-107); GLOMERULAR FILTRATION RATE 82 ML/MIN (>89); POTASSIUM 4.3 MEQ/L (3.5-5.1); SODIUM (NA) 138 MEQ/L (136-145)
[2017-06-04 06:41] LABS: ALT (GPT) 23 U/L (12-78)
[2017-06-04 06:43] LABS: ALKALINE PHOSPHATASE 65 U/L (45-117); HDL CHOLESTEROL 52.2 MG/DL (40.0-60.0); LDL CHOLESTEROL 42 MG/DL (0-99); TOTAL BILIRUBIN ADULT 0.3 MG/DL (0.2-1.0)
[2017-06-04] MEDS: DILTIAZEM INJ 125 MG in SODIUM CHLORIDE 0.9% INJ 100 ML IV SCH ×2 (06:49→15:11)
[2017-06-04] MEDS ORDERED: LORazepam 2 MG TAB PO PRN (08:30)
[2017-06-04] MEDS ORDERED: HALOPERIDOL LACTATE 5 MG/ML AMP IM PRN (08:30)
[2017-06-04] MEDS ORDERED: ONDANSETRON HCL 4 MG/2 ML VIAL IV PRN (08:30)
[2017-06-04] MEDS ORDERED: cloNIDine HCL 0.1 MG TAB PO PRN (08:30)
[2017-06-04] MEDS ORDERED: SODIUM CHLORIDE 0.9% FLUSH 10 ML FLUSH IV FLUSH PRN (08:30)
[2017-06-04] MEDS ORDERED: LORazepam 1 MG TAB PO PRN (08:30)
[2017-06-04] MEDS ORDERED: LORazepam 2 MG/ML VIAL IV PUSH PRN ×4 (08:30)
[2017-06-04] MEDS ORDERED: FLUMAZENIL 0.5 MG/5 ML VIAL IV PUSH PRN ×2 (08:30)
--- NOTE | 2017-06-04 08:36 | HHI.PR ---
Subjective Remarks This is a 71-year-old gentleman with a history of tobacco use, unknown past medical history, who presents today VIA EMS with cough and shortness of breath. The patient states that he's been in bed since Thursday. He states he's been weak and short of breath since then. When paramedics arrived they found his O2 sat to be 82. He is placed on 100% nonrebreather which brought up to 99% . He also reports low-grade fevers. The patient felt better with the O2. He has not seen a doctor since 2007. He says at that time he had no medical issues. He does smoke half pack of cigarettes had previously been up to 2 packs a day. Then down to one pack and then now to half pack a day. And states he drinks one to 2 beers per day. Is not currently taking any medication. His is been wanting him to come to the hospital since last week 06-04 events last night noted Transferred to ICU on a Cardizem drip Still short of breath Nurse's alerting me that he actually drinks much more alcohol than he states will need CIWA protocol Discussed with patient RN and family On BiPAP still short of breath Consult cardiology Consult pulmonary Objective Vitals Vital Signs Date Time Temp Pulse Resp B/P Pulse Ox O2 Delivery O2 Flow Rate FiO2 06/04/17 07:35 98 25 06/04/17 07:32 98 BiPAP 25 06/04/17 05:20 136 18 106/64 99 06/04/17 04:10 96 25 06/04/17 04:00 99 Bi-Pap 25 06/04/17 03:52 140 16 98/64 95 06/04/17 03:30 98.8 145 20 91/59 96 06/04/17 03:00 159 17 94/50 96 06/04/17 02:30 162 18 90/53 99 06/04/17 02:00 156 18 105/69 99 06/04/17 01:30 96 Bi-Pap 35 06/04/17 01:11 99.5 172 20 95/63 98 06/04/17 01:10 170 06/04/17 01:10 170 06/04/17 01:10 163 22 95/63 96 06/04/17 01:10 96 Nasal Cannula 2.00 06/04/17 01:05 98 35 06/04/17 01:00 98 35 06/03/17 23:50 98.1 169 28 99/58 97 06/03/17 22:45 95 4.00 06/03/17 20:40 98.4 79 20 118/57 98 06/03/17 19:30 98.4 79 20 118/57 99 Nasal Cannula 4 06/03/17 19:24 98 Nasal Cannula 4.00 06/03/17 18:00 88 20 112/78 100 Nasal Cannula 4 06/03/17 16:00 65 22 122/78 100 Nasal Cannula 2 06/03/17 15:58 100 Nasal Cannula 4.00 06/03/17 14:00 87 20 118/62 99 Nasal Cannula 4 06/03/17 11:00 103 20 135/96 98 Nasal Cannula 4 06/03/17 10:00 108 24 144/74 98 Nasal Cannula 4 06/03/17 09:30 97 Nasal Cannula 4 06/03/17 09:30 100.2 122 32 106/64 97 06/03/17 09:30 97 Nasal Cannula 4 06/03/17 09:30 100.2 122 32 105/64 97 Nasal Cannula 4 06/03/17 09:30 Nasal Cannula 4 I/O 06/03/17 06/03/17 06/03/17 06/04/17 06/04/17 06/04/17 07:00 15:00 23:00 07:00 15:00 23:00 Intake Total 240 ml 1760 ml Output Total 200 ml Balance 40 ml 1760 ml Intake Oral 240 ml 60 ml IV Total 1700 ml Output Urine Total 200 ml # Voids 1 # Bowel Movements 0 0 Result Diagram: 06/04/17 0422 06/04/17 0422 Other Results Laboratory Tests Test 06/03/17 06/03/17 06/03/17 06/03/17 09:45 15:25 19:25 22:00 White Blood Count 20.0 TH/MM3 Red Blood Count 4.80 MIL/MM3 Hemoglobin 14.4 GM/DL Hematocrit 44.3 % Mean Corpuscular Volume 92.3 FL Mean Corpuscular Hemoglobin 29.9 PG Mean Corpuscular Hemoglobin 32.4 % Concent Red Cell Distribution Width 14.4 % Platelet Count 292 TH/MM3 Mean Platelet Volume 10.7 FL Neutrophils (%) (Auto) 87.1 % Lymphocytes (%) (Auto) 3.7 % Monocytes (%) (Auto) 8.9 % Eosinophils (%) (Auto) 0.0 % Basophils (%) (Auto) 0.3 % Neutrophils # (Auto) 17.4 TH/MM3 Lymphocytes # (Auto) 0.7 TH/MM3 Monocytes # (Auto) 1.8 TH/MM3 Eosinophils # (Auto) 0.0 TH/MM3 Basophils # (Auto) 0.1 TH/MM3 CBC Comment AUTO DIFF Differential Comment AUTO DIFF CONFIRMED Platelet Estimate NORMAL Platelet Morphology Comment NORMAL Blood Gas Puncture Site RT RADIAL Blood Gas Patient Temperature 98.6 Blood Gas HCO3 29 mmol/L Blood Gas Base Excess 3.4 mmol/L Blood Gas Oxygen Saturation 95 % Arterial Blood pH 7.36 Arterial Blood Partial 52 mmHg Pressure CO2 Arterial Blood Partial 93 mmHg Pressure O2 Arterial Blood Oxygen Content 19.2 Vol % Arterial Blood 1.6 % Carboxyhemoglobin Arterial Blood Methemoglobin 0.8 % Blood Gas Hemoglobin 14.4 G/DL Oxygen Delivery Device NASAL CANNULA Blood Gas Liter Flow 4 L/M Sodium Level 138 MEQ/L Potassium Level 4.7 MEQ/L Chloride Level 100 MEQ/L Carbon Dioxide Level 29.5 MEQ/L Anion Gap 9 MEQ/L Blood Urea Nitrogen 33 MG/DL Creatinine 1.16 MG/DL Estimat Glomerular Filtration 62 ML/MIN Rate Random Glucose 126 MG/DL Lactic Acid Level 1.6 mmol/L Calcium Level 9.7 MG/DL Total Bilirubin 0.8 MG/DL Aspartate Amino Transf 29 U/L (AST/SGOT) Alanine Aminotransferase 27 U/L (ALT/SGPT) Alkaline Phosphatase 78 U/L Total Creatine Kinase 59 U/L 42 U/L 113 U/L Troponin I LESS THAN 0.02 LESS THAN 0.02 LESS THAN 0.02 NG/ML NG/ML NG/ML Total Protein 8.2 GM/DL Albumin 3.0 GM/DL Urine Color YELLOW Urine Turbidity HAZY Urine pH 5.5 Urine Specific [place] 1.021 Urine Protein 30 mg/dL Urine Glucose (UA) NEG mg/dL Urine Ketones NEG mg/dL Urine Occult Blood NEG Urine Nitrite NEG Urine Bilirubin NEG Urine Urobilinogen LESS THAN 2.0 MG/DL Urine Leukocyte Esterase NEG Urine RBC 4 /hpf Urine WBC 10 /hpf Urine Squamous Epithelial 2 /hpf Cells Urine Transitional Epithelial 1 /hpf Cells Urine Renal Epithelial Cells <1 /hpf Urine Amorphous Sediment RARE Urine Bacteria RARE /hpf Urine Hyaline Casts 95 /lpf Urine Mucus FEW /lpf Microscopic Urinalysis Comment CATH-CULTURE IND Test 06/03/17 06/03/17 06/04/17 06/04/17 22:55 23:50 01:00 04:22 Blood Gas Puncture Site LT RADIAL Blood Gas Patient Temperature 98.6 Blood Gas HCO3 26 mmol/L Blood Gas Base Excess 0.4 mmol/L Blood Gas Oxygen Saturation 96 % Arterial Blood pH 7.30 Arterial Blood Partial 55 mmHg Pressure CO2 Arterial Blood Partial 99 mmHg Pressure O2 Arterial Blood Oxygen Content 20.1 Vol % Arterial Blood 1.0 % Carboxyhemoglobin Arterial Blood Methemoglobin 0.8 % Blood Gas Hemoglobin 14.9 G/DL Oxygen Delivery Device NASAL CANNULA Blood Gas Liter Flow 4 L/M White Blood Count 14.3 TH/MM3 12.4 TH/MM3 Red Blood Count 4.34 MIL/MM3 4.06 MIL/MM3 Hemoglobin 13.1 GM/DL 12.4 GM/DL Hematocrit 40.4 % 38.1 % Mean Corpuscular Volume 93.2 FL 93.9 FL Mean Corpuscular Hemoglobin 30.2 PG 30.5 PG Mean Corpuscular Hemoglobin 32.5 % 32.5 % Concent Red Cell Distribution Width 14.3 % 14.0 % Platelet Count 260 TH/MM3 248 TH/MM3 Mean Platelet Volume 10.1 FL 10.3 FL Neutrophils (%) (Auto) 96.2 % 93.6 % Lymphocytes (%) (Auto) 2.3 % 3.7 % Monocytes (%) (Auto) 1.4 % 2.5 % Eosinophils (%) (Auto) 0.0 % 0.0 % Basophils (%) (Auto) 0.1 % 0.2 % Neutrophils # (Auto) 13.8 TH/MM3 11.6 TH/MM3 Lymphocytes # (Auto) 0.3 TH/MM3 0.5 TH/MM3 Monocytes # (Auto) 0.2 TH/MM3 0.3 TH/MM3 Eosinophils # (Auto) 0.0 TH/MM3 0.0 TH/MM3 Basophils # (Auto) 0.0 TH/MM3 0.0 TH/MM3 CBC Comment DIFF FINAL DIFF FINAL Differential Comment D-Dimer Quantitative (PE/DVT) 1.51 MG/L FEU Sodium Level 137 MEQ/L 138 MEQ/L Potassium Level 4.2 MEQ/L 4.3 MEQ/L Chloride Level 101 MEQ/L 103 MEQ/L Carbon Dioxide Level 27.5 MEQ/L 28.9 MEQ/L Anion Gap 9 MEQ/L 6 MEQ/L Blood Urea Nitrogen 41 MG/DL 39 MG/DL Creatinine 1.08 MG/DL 0.92 MG/DL Estimat Glomerular Filtration 68 ML/MIN 82 ML/MIN Rate Random Glucose 245 MG/DL 164 MG/DL Calcium Level 8.5 MG/DL 8.2 MG/DL Magnesium Level 2.6 MG/DL Total Bilirubin 0.4 MG/DL 0.3 MG/DL Aspartate Amino Transf 19 U/L 18 U/L (AST/SGOT) Alanine Aminotransferase 23 U/L 23 U/L (ALT/SGPT) Alkaline Phosphatase 73 U/L 65 U/L Troponin I LESS THAN 0.02 NG/ML B-Type Natriuretic Peptide 118 PG/ML Total Protein 7.2 GM/DL 6.7 GM/DL Albumin 2.5 GM/DL 2.3 GM/DL Nasal Screen MRSA (PCR) MRSA NOT DETECTED Triglycerides Level 61 MG/DL Cholesterol Level 106 MG/DL LDL Cholesterol 42 MG/DL HDL Cholesterol 52.2 MG/DL Cholesterol/HDL Ratio 2.03 RATIO Imaging Last Impressions Chest X-Ray 06/03/17 0939 Signed Impressions: Service Date/Time: Saturday, June 03, 2017 10:00 - CONCLUSION: 1. Hyperinflation consistent with bullous emphysematous change. 2. Chronic interstitial changes. Riky Locke Jr., MD Objective Remarks GENERAL: This is a well-nourished, well-developed patient, in moderate distress appears to have some wasting in his chest area SKIN: No rashes, ecchymoses or lesions. Cool and dry. HEAD: Atraumatic. Normocephalic. No temporal or scalp tenderness. EYES: Pupils equal round and reactive. Extraocular motions intact. No scleral icterus. No injection or drainage. ENT: Nose without bleeding, purulent drainage or septal hematoma. Throat without erythema, tonsillar hypertrophy or exudate. Uvula midline. Airway patent. Tongue is midline NECK: Trachea midline. No JVD or lymphadenopathy. Supple, nontender, no meningeal signs. CARDIOVASCULAR: IRRegular rate and rhythm without murmurs, gallops, or rubs. S1 -S2 no S3 or S4 RESPIRATORY: Coarse breath sounds. Breath sounds equal bilaterally. Bronchitis and wheezes throughout GASTROINTESTINAL: Abdomen soft, non-tender, nondistended. No hepato-splenomegaly , or palpable masses. No guarding. MUSCULOSKELETAL: Extremities without clubbing, cyanosis, or edema. No joint tenderness, effusion, or edema noted. No calf tenderness. Negative Homans sign bilaterally. NEUROLOGICAL: Awake and alert. Cranial nerves II through XII intact. Motor and sensory grossly within normal limits. Five out of 5 muscle strength in all muscle groups. Normal speech. Insight and judgment good mood and behaviors appropriate Medications and IVs Current Medications Ceftriaxone Sodium 2000 mg/ Sodium Chloride 100 ml @ 200 mls/hr ONCE STAT IV Last administered on 06/03/17 12:47; Start 06/03/17 at 11:38; Stop 06/03/17 at 12:07; Status DC Azithromycin 500 mg/Sodium Chloride 250 ml @ 250 mls/hr ONCE STAT IV Last administered on 06/03/17 13:35; Start 06/03/17 at 11:38; Stop 06/03/17 at 12:37 ; Status DC Sodium Chloride 1,000 ml @ 125 mls/hr Q8H IV Last administered on 06/03/17 12 :48; Start 06/03/17 at 12:30; Stop 06/03/17 at 14:42; Status DC Sodium Chloride (NS 1000 ml Inj) 1,000 ml @ 75 mls/hr [id number] IV Last administered on 06/04/17 05:16; Start 06/03/17 at 15:00 Sodium Chloride (NS Flush) 2 ml BID IV FLUSH ; Start 06/03/17 at 21:00; Status UNV Sodium Chloride (NS Flush) 2 ml UNSCH PRN IV FLUSH FLUSH AFTER USING IV ACCESS ; Start 06/03/17 at 13:15; Status UNV Albuterol/ Ipratropium (Duoneb Neb) 1 ampule Q4HR NEB INH Last administered on 06/04/17 07:32; Start 06/03/17 at 16:00 Albuterol Sulfate (Albuterol Neb) 2.5 mg Q2HR NEB PRN INH SHORTNESS OF BREATH; Start 06/03/17 at 13:15 Budesonide/ Formoterol Fumarate (Symbicort 160-4.5 Inh) 2 puff Q12HR INH Last administered on 06/03/17 21:00; Start 06/03/17 at 21:00 Methylprednisolone Sodium Succinate 60 mg 60 mg Q6H IVP Last administered on 03:17; Start 06/03/17 at 15:00 Ceftriaxone Sodium/Sodium Chloride (Rocephin Inj/NS Inj) 100 ml @ 200 mls/hr Q24H IV ; Start 06/04/17 at 12:00; Stop 06/04/17 at 12:00; Status DC Nicotine 1 patch 1 patch DAILY TD Last administered on 06/03/17 15:42; Start 06/03/17 at 15:00 Azithromycin/ Sodium Chloride (Zithromax Inj/ NS 250 ml Inj) 250 ml @ 250 mls/ hr Q24H IV ; Start 06/04/17 at 14:00; Stop 06/04/17 at 14:00; Status DC Enoxaparin Sodium (Lovenox Inj) 40 mg Q24H SQ Last administered on 06/03/17 15 :42; Start 06/03/17 at 15:00 Sodium Chloride (NS Flush) 2 ml UNSCH PRN IV FLUSH FLUSH AFTER USING IV ACCESS ; Start 06/03/17 at 13:15 Sodium Chloride (NS Flush) 2 ml BID IV FLUSH Last administered on 06/03/17 22: 11; Start 06/03/17 at 21:00 Acetaminophen (Tylenol) 650 mg Q4H PRN PO TEMP > 100.4; Start 06/03/17 at 13:15 Ondansetron HCl (Zofran Inj) 4 mg Q6H PRN IVP NAUSEA OR VOMITING; Start at 13:15 Prochlorperazine (Compazine Supp) 25 mg Q12H PRN RECTAL NAUSEA OR VOMITING; Start 06/03/17 at 13:15 Acetaminophen (Tylenol) 650 mg Q6H PRN PO PAIN SCALE 1 TO 2; Start 06/03/17 at 13:15 Oxycodone/ Acetaminophen (Percocet 5-325 Mg) 1 tab Q6H PRN PO PAIN SCALE 3 TO 5; Start 06/03/17 at 13:15 Oxycodone/ Acetaminophen (Percocet 10-325 Mg) 1 tab Q6H PRN PO PAIN SCALE 6 TO 10; Start 06/03/17 at 13:15 Morphine Sulfate (Morphine Inj) 2 mg Q3H PRN IV Pain 3-5; if unable to take PO ; Start 06/03/17 at 13:15 Morphine Sulfate (Morphine Inj) 4 mg Q3H PRN IV Pain 6-10;if unable to take PO ; Start 06/03/17 at 13:15 Morphine Sulfate (Morphine Inj) 4 mg Q3H PRN IV BREAKTHROUGH PAIN; Start at 13:15 Naloxone HCl (Narcan Inj) 0.4 mg UNSCH PRN IV SEE LABEL COMMENTS; Start at 13:15 Senna/Docusate Sodium (Roxanna-Colace) 1 tab BID PO ; Start 06/03/17 at 21:00 Magnesium Hydroxide (Milk Of Magnesia Liq) 30 ml Q12H PRN PO MILD - MODERATE CONSTIPATION; Start 06/03/17 at 13:15 Sennosides (Senokot) 17.2 mg Q12H PRN PO MODERATE - SEVERE CONSTIPATION; Start 06/03/17 at 13:15 Bisacodyl (Dulcolax Supp) 10 mg DAILY PRN RECTAL SEVERE CONSITIPATION; Start at 13:15 Lactulose (Lactulose Liq) 30 ml DAILY PRN PO SEVERE CONSITIPATION; Start at 13:15 Sodium Chloride (NS Flush) 2 ml UNSCH PRN IV FLUSH FLUSH AFTER USING IV ACCESS ; Start 06/03/17 at 13:15; Status UNV Sodium Chloride (NS Flush) 2 ml BID IV FLUSH ; Start 06/03/17 at 21:00; Status UNV Magnesium Oxide (Mag-Ox) 400 mg BID PO Last administered on 06/03/17 22:10; Start 06/03/17 at 21:00 Guaifenesin (Mucinex Er) 600 mg BID PO Last administered on 06/03/17 22:10; Start 06/03/17 at 14:45 Pantoprazole Sodium (Protonix) 40 mg DAILY PO Last administered on 06/03/17 15 :40; Start 06/03/17 at 14:45 Miscellaneous Information 1 HS T-DERMAL Last administered on 06/03/17 22:11; Start 06/03/17 at 21:00 Pneumococcal Polyvalent Vaccine (Pneumovax-23 Inj) 25 mcg ONCE ONCE IM ; Start 06/04/17 at 09:00; Stop 06/04/17 at 09:01 Diltiazem HCl 20 mg 20 mg ONCE ONCE IVP Last administered on 06/03/17 23:15; Start 06/03/17 at 23:00; Stop 06/03/17 at 23:07; Status DC Diltiazem HCl/ Sodium Chloride (Cardizem Inj/NS Inj) 125 ml @ 0 mls/hr TITRATE IV Last administered on 06/04/17 06:49; Start 06/03/17 at 23:00 Adenosine (Adenocard Inj) 6 mg ONCE ONCE IV PUSH Last administered on 23:33; Start 06/03/17 at 23:30; Stop 06/03/17 at 23:31; Status DC Adenosine (Adenocard Inj) 6 mg ONCE ONCE IV PUSH ; Start 06/03/17 at 23:30; Stop 06/03/17 at 23:31; Status DC Adenosine 12 mg 12 mg ONCE ONCE IV PUSH Last administered on 06/03/17 23:38; Start 06/03/17 at 23:30; Stop 06/03/17 at 23:31; Status DC Sodium Chloride (NS 500 ml Inj) 500 ml @ 500 mls/hr BOLUS ONCE IV Last administered on 06/04/17 01:53; Start 06/04/17 at 01:15; Stop 06/04/17 at 02:14 ; Status DC Enoxaparin Sodium 70 mg 70 mg ONCE ONCE SQ Last administered on 06/04/17 01: 55; Start 06/04/17 at 01:15; Stop 06/04/17 at 01:16; Status DC Levofloxacin/ Dextrose (Levaquin 750 Mg Premix Inj) 150 ml @ 100 mls/hr Q24H IV Last administered on 06/04/17 02:00; Start 06/04/17 at 02:00 Miscellaneous Information 1 [id number] Last administered on 06/04/17 01:45; Start 06/04/17 at 01:45 Chlorhexidine Gluconate (Chlorhexidine 2% Cloth) 3 pack Taper DAILY@04 TOP Last administered on 06/04/17 02:00; Start 06/04/17 at 04:00; Stop 05/31/18 at 03:59 Chlorhexidine Gluconate 3 pack 3 pack UNSCH PRN TOP HYGIENIC CARE; Start at 01:45 Sodium Chloride (NS 1000 ml Inj) 1,000 ml @ 999 mls/hr BOLUS ONCE IV Last administered on 06/04/17t 05:12; Start 06/04/17 at 05:00; Stop 06/04/17 at 06:00 ; Status DC Urinary Catheter: No Vascular Central Line Catheter: No A/P Problem List: (1) Hypoxemia ICD Code: R09.02 Status: Acute (2) Tobacco abuse ICD Code: Z72.0 Status: Acute (3) Sepsis ICD Code: A41.9 Status: Acute (4) COPD (chronic obstructive pulmonary disease) ICD Code: J44.9 Status: Acute (5) Pneumonia ICD Code: J18.9 Status: Acute (6) COPD exacerbation ICD Code: J44.1 Status: Acute (7) Atrial fibrillation ICD Code: I48.91 Status: Acute Assessment and Plan Pneumonia continue on incentive spirometry continue on Mucinex continue on DuoNeb's continue on Zithromax and Rocephin on oxygen with incentive spirometry and Mucinex COPD exacerbation NicoDerm patch. Solu-Medrol CONSULT PULMONARY Tobacco abuse smoking cessation recommended NicoDerm patch Sepsis aggressive fluid rehydration and antibiotics treatment Chronic alcohol use CIWA AFIB- ON CARDIZEM DRIP- IN ICU- WAS GIVEN ADENOSINE- BUT STILL ON CARDIZEM DRIP NEEDS ECHO AND CARDIOLOGY CONSULT LOVENOX 70MG SUBQ BID ECHO AND CONSULT CARDIO ALCOHOL ABUSE- CIWA PROTOCOLS Continued DVT and GI prophylaxis Shekhar Subramanian DO Jun 04, 2017 08:36
[2017-06-04] MEDS ORDERED: SODIUM CHLORIDE 0.9% FLUSH 10 ML FLUSH IV FLUSH SCH (09:00)
[2017-06-04] MEDS ORDERED: PNEUMOCOCCAL POLYVALENT INJ 25 MCG/0.5 ML SYR IM ONE (09:00)
[2017-06-04] MEDS ORDERED: PANTOPRAZOLE SOD 40 MG DELAYED RELEASE TAB PO SCH (09:00)
[2017-06-04] MEDS: DOCUSATE SODIUM 50 MG/SENNA 8.6 MG TAB PO SCH ×2 (09:02→21:00)
[2017-06-04] MEDS: guaiFENesin E.R. 600 MG TAB PO SCH ×2 (09:02→21:31)
[2017-06-04] MEDS: MAGNESIUM OXIDE 400 MG TAB PO SCH ×2 (09:02→21:31)
[2017-06-04] MEDS: NICOTINE 21 MG/24 HR PATCH TD SCH (09:03)
[2017-06-04] MEDS: PANTOPRAZOLE SOD 40 MG DELAYED RELEASE TAB PO SCH (09:03)
--- NOTE | 2017-06-04 09:04 | EKG ---
Date Performed: 06/03/2017 Time Performed: 22:53:46 PTAGE: 71 years EKG: Atrial fibrillation with uncontrolled ventricular response Extensive ST-T changes may be du e to myocardial ischemia Abnormal ECG PREVIOUS TRACING : 06/03/2017 09.46 compared with previous EKG atrial fibrillation with rapid ventricular response is new DOCTOR: Ronal Warren Interpretating Date/Time 06/04/2017 08:58:15
[2017-06-04] MEDS: BUDESONIDE-FORMOTEROL 160/4.5 MCG INHALER INH SCH ×2 (11:51→21:00)
[2017-06-04] MEDS: MULTIVITAMINS/MINERALS THERAPEUTIC TAB PO SCH (11:51)
[2017-06-04] MEDS: FOLIC ACID 1 MG TAB PO SCH (11:51)
[2017-06-04] MEDS: SODIUM CHLORIDE 0.9% FLUSH 10 ML FLUSH IV FLUSH SCH ×2 (11:52→21:31)
[2017-06-04] MEDS: ENOXAPARIN SODIUM 80 MG/0.8 ML SYRINGE SQ SCH ×2 (11:52→21:31)
[2017-06-04] MEDS: THIAMINE HCL 100 MG TAB PO SCH (11:56)
[2017-06-04] MEDS ORDERED: cefTRIAXone INJ 1,000 MG in SODIUM CHLORIDE 0.9% INJ 100 ML IV SCH (12:00)
--- NOTE | 2017-06-04 13:39 | PD.CONS ---
HPI Consult Requested By Primary Care Physician No Primary Care Physician History of Present Illness 71 y/o M smoker who presented to ER via EMS with cough and shortness of breath. According to the patient he has been in bed since Thursday, because of overall weakness and low grade fevers. Cardiology consulted due to afib with RVR. Review of Systems Consitutional: COMPLAINS OF: Fever, Chills Eyes: DENIES: Amaurosis Fugax, Change in vision HEENT: DENIES: Lightheadedness, Change in hearing Respiratory: COMPLAINS OF: Cough Cardiovascular: DENIES: See HPI, Chest pain, Palpitations, Syncope, Tachycardia Gastrointestinal: DENIES: Nausea, Vomiting, Change in bowel habits, Reflux, Bloody stools, Melena Genitourinary: DENIES: Urinary incontinence, Difficulty voiding Neurologic: DENIES: Tingling or numbness, Memory problems, Poor Balance, Stroke symptoms Musculoskeletal: DENIES: Joint pain, Muscle pain, Limited range of motion, Back pain Psychiatric: DENIES: Anxiety, Depression, Sleep disturbances Hematologic: DENIES: Bruising tendencies, Bleeding tendencies Endocrine: DENIES: Weight gain, Weight loss, Thyroid disease Past Family Social History Allergies: Coded Allergies: No Known Allergies (Unverified , 06/03/17) Past Medical History None Past Surgical History None Reported Medications Reported Meds & Active Scripts Active No Active Prescriptions or Reported Medications Active Ordered Medications Current Medications Medications (Trade) Dose Ordered Sig/Sangeeta Route Start Time Stop Time Status Last Admin (NS 1000 ml Inj) 1,000 ml @ 75 mls/hr [id number] IV 06/03/17 15:00 06/04/17 05:16 (Symbicort 160-4.5 Inh) 2 puff Q12HR INH 06/03/17 21:00 06/04/17 11:51 (SoluMEDROL INJ) 60 mg Q6H IVP 06/03/17 15:00 06/04/17 09:02 (Habitrol 21 Mg Patch.24 Hr) 1 patch DAILY TD 06/03/17 15:00 06/04/17 09:03 (NS Flush) 2 ml UNSCH PRN IV FLUSH 06/03/17 13:15 (NS Flush) 2 ml BID IV FLUSH 06/03/17 21:00 06/04/17 11:52 (Tylenol) 650 mg Q4H PRN PO 06/03/17 13:15 (Zofran Inj) 4 mg Q6H PRN IVP 06/03/17 13:15 (Compazine Supp) 25 mg Q12H PRN RECTAL 06/03/17 13:15 (Tylenol) 650 mg Q6H PRN PO 06/03/17 13:15 (Percocet 5-325 Mg) 1 tab Q6H PRN PO 06/03/17 13:15 (Percocet 10-325 Mg) 1 tab Q6H PRN PO 06/03/17 13:15 (Morphine Inj) 2 mg Q3H PRN IV 06/03/17 13:15 (Morphine Inj) 4 mg Q3H PRN IV 06/03/17 13:15 (Morphine Inj) 4 mg Q3H PRN IV 06/03/17 13:15 (Narcan Inj) 0.4 mg UNSCH PRN IV 06/03/17 13:15 (Roxanna-Colace) 1 tab BID PO 06/03/17 21:00 06/04/17 09:02 (Milk Of Magnesia Liq) 30 ml Q12H PRN PO 06/03/17 13:15 (Senokot) 17.2 mg Q12H PRN PO 06/03/17 13:15 (Dulcolax Supp) 10 mg DAILY PRN RECTAL 06/03/17 13:15 (Lactulose Liq) 30 ml DAILY PRN PO 06/03/17 13:15 (Mag-Ox) 400 mg BID PO 06/03/17 21:00 06/04/17 09:02 (Mucinex Er) 600 mg BID PO 06/03/17 14:45 06/04/17 09:02 (Protonix) 40 mg DAILY PO 06/03/17 14:45 06/04/17 09:03 Miscellaneous Information 1 1 HS T-DERMAL 06/03/17 21:00 06/03/17 22:11 Diltiazem HCl 125 mg/Sodium Chloride 125 ml @ 0 mls/hr TITRATE IV 06/03/17 23:00 06/04/17 06:49 (Levaquin 750 Mg Premix Inj) 150 ml @ 100 mls/hr Q24H IV 06/04/17 02:00 06/04/17 02:00 Miscellaneous Information 1 Q361D XX 06/04/17 01:45 06/04/17 01:45 (Chlorhexidine 2% Cloth) 3 pack Taper DAILY@04 TOP 06/04/17 04:00 05/31/18 03:59 06/04/17 02:00 (Chlorhexidine 2% Cloth) 3 pack UNSCH PRN TOP 06/04/17 01:45 (Romazicon Inj) 0.2 mg Q1M PRN IV PUSH 06/04/17 08:30 (Ativan) 1 mg Q4H PRN PO 06/04/17 08:30 (Ativan Inj) 1 mg Q4H PRN IV PUSH 06/04/17 08:30 (Ativan) 2 mg Q2H PRN PO 06/04/17 08:30 (Ativan Inj) 2 mg Q2H PRN IV PUSH 06/04/17 08:30 (Ativan Inj) 2 mg Q1H PRN IV PUSH 06/04/17 08:30 (Ativan Inj) 2 mg Q15M PRN IV PUSH 06/04/17 08:30 (Haldol Inj) 2 mg Q15M PRN IM 06/04/17 08:30 (Folate) 1 mg DAILY PO 06/04/17 09:00 06/09/17 08:59 06/04/17 11:51 (Vitamin B1) 100 mg DAILY PO 06/04/17 09:00 06/04/17 11:56 (Theragran M Tab) 1 tab DAILY PO 06/04/17 09:00 06/09/17 08:59 06/04/17 11:51 (Catapres) 0.1 mg Q6H PRN PO 06/04/17 08:30 Enoxaparin Sodium 70 mg 70 mg Q12H SQ 06/04/17 10:00 06/04/17 11:52 (NS 1000 ml Inj) 1,000 ml @ 125 mls/hr Q8H IV 06/04/17 10:45 06/04/17 13:14 Physical Exam Vital Signs Vital Signs Date Time Temp Pulse Resp B/P Pulse Ox O2 Delivery O2 Flow Rate FiO2 06/04/17 12:08 98 Nasal Cannula 3.00 06/04/17 10:00 161 35 97/61 97 06/04/17 09:00 157 25 105/57 100 06/04/17 08:39 100 Venturi Mask 6.00 50 06/04/17 08:31 100 Bi-Pap 2.00 25 06/04/17 08:00 161 23 105/61 100 06/04/17 07:35 98 25 06/04/17 07:32 98 BiPAP 25 06/04/17 07:00 163 18 100/65 99 06/04/17 05:20 136 18 106/64 99 06/04/17 04:10 96 25 06/04/17 04:00 99 Bi-Pap 25 06/04/17 03:52 140 16 98/64 95 06/04/17 03:30 98.8 145 20 91/59 96 06/04/17 03:00 159 17 94/50 96 06/04/17 02:30 162 18 90/53 99 06/04/17 02:00 156 18 105/69 99 06/04/17 01:30 96 Bi-Pap 35 06/04/17 01:11 99.5 172 20 95/63 98 06/04/17 01:10 170 06/04/17 01:10 170 06/04/17 01:10 163 22 95/63 96 06/04/17 01:10 96 Nasal Cannula 2.00 06/04/17 01:05 98 35 06/04/17 01:00 98 35 06/03/17 23:50 98.1 169 28 99/58 97 06/03/17 22:45 95 4.00 06/03/17 20:40 98.4 79 20 118/57 98 06/03/17 19:30 98.4 79 20 118/57 99 Nasal Cannula 4 06/03/17 19:24 98 Nasal Cannula 4.00 06/03/17 18:00 88 20 112/78 100 Nasal Cannula 4 06/03/17 16:00 65 22 122/78 100 Nasal Cannula 2 06/03/17 15:58 100 Nasal Cannula 4.00 06/03/17 14:00 87 20 118/62 99 Nasal Cannula 4 Physical Exam GENERAL: Awake, alert, and oriented x 3 SKIN: Warm and dry. HEAD: Normocephalic. EYES: No scleral icterus. No injection or drainage. NECK: Supple, trachea midline. No JVD or lymphadenopathy. CARDIOVASCULAR: Irr Irr no murmurs, gallops, or rubs. RESPIRATORY: Breath sounds equal bilaterally. No accessory muscle use. GASTROINTESTINAL: Abdomen soft, non-tender, nondistended. EXTREMITIES: No cyanosis, or edema. Laboratory Laboratory Tests Test 06/03/17 06/03/17 06/03/17 06/03/17 15:25 19:25 22:00 22:55 Total Creatine Kinase 42 113 Troponin I LESS THAN 0.02 LESS THAN 0.02 Urine Color YELLOW Urine Turbidity HAZY Urine pH 5.5 Urine Specific [place] 1.021 Urine Protein 30 Urine Glucose (UA) NEG Urine Ketones NEG Urine Occult Blood NEG Urine Nitrite NEG Urine Bilirubin NEG Urine Urobilinogen LESS THAN 2.0 Urine Leukocyte Esterase NEG Urine RBC 4 Urine WBC 10 Urine Squamous Epithelial 2 Cells Urine Transitional Epithelial 1 Cells Urine Renal Epithelial Cells <1 Urine Amorphous Sediment RARE Urine Bacteria RARE Urine Hyaline Casts 95 Urine Mucus FEW Microscopic Urinalysis Comment CATH-CULTURE IND Blood Gas Puncture Site LT RADIAL Blood Gas Patient Temperature 98.6 Blood Gas HCO3 26 Blood Gas Base Excess 0.4 Blood Gas Oxygen Saturation 96 Arterial Blood pH 7.30 Arterial Blood Partial 55 Pressure CO2 Arterial Blood Partial 99 Pressure O2 Arterial Blood Oxygen Content 20.1 Arterial Blood 1.0 Carboxyhemoglobin Arterial Blood Methemoglobin 0.8 Blood Gas Hemoglobin 14.9 Oxygen Delivery Device NASAL CANNULA Blood Gas Liter Flow 4 Test 06/03/17 06/04/17 06/04/17 23:50 01:00 04:22 White Blood Count 14.3 12.4 Red Blood Count 4.34 4.06 Hemoglobin 13.1 12.4 Hematocrit 40.4 38.1 Mean Corpuscular Volume 93.2 93.9 Mean Corpuscular Hemoglobin 30.2 30.5 Mean Corpuscular Hemoglobin 32.5 32.5 Concent Red Cell Distribution Width 14.3 14.0 Platelet Count 260 248 Mean Platelet Volume 10.1 10.3 Neutrophils (%) (Auto) 96.2 93.6 Lymphocytes (%) (Auto) 2.3 3.7 Monocytes (%) (Auto) 1.4 2.5 Eosinophils (%) (Auto) 0.0 0.0 Basophils (%) (Auto) 0.1 0.2 Neutrophils # (Auto) 13.8 11.6 Lymphocytes # (Auto) 0.3 0.5 Monocytes # (Auto) 0.2 0.3 Eosinophils # (Auto) 0.0 0.0 Basophils # (Auto) 0.0 0.0 CBC Comment DIFF FINAL DIFF FINAL Differential Comment D-Dimer Quantitative (PE/DVT) 1.51 Sodium Level 137 138 Potassium Level 4.2 4.3 Chloride Level 101 103 Carbon Dioxide Level 27.5 28.9 Anion Gap 9 6 Blood Urea Nitrogen 41 39 Creatinine 1.08 0.92 Estimat Glomerular Filtration 68 82 Rate Random Glucose 245 164 Calcium Level 8.5 8.2 Magnesium Level 2.6 Total Bilirubin 0.4 0.3 Aspartate Amino Transf 19 18 (AST/SGOT) Alanine Aminotransferase 23 23 (ALT/SGPT) Alkaline Phosphatase 73 65 Troponin I LESS THAN 0.02 B-Type Natriuretic Peptide 118 Total Protein 7.2 6.7 Albumin 2.5 2.3 Nasal Screen MRSA (PCR) MRSA NOT DETECTED Triglycerides Level 61 Cholesterol Level 106 LDL Cholesterol 42 HDL Cholesterol 52.2 Cholesterol/HDL Ratio 2.03 Date/Time Procedure Status Source Growth 06/03/17 22:00 Urine Culture - Preliminary Resulted Urine Catheterized Urine No growth. 06/03/17 09:50 Gram Stain - Final Resulted Sputum Expectorated Sputum 06/03/17 09:50 Sputum Culture - Preliminary Resulted Sputum Expectorated Sputum HEAVY GROWTH NORMAL RESPIRATORY JOSE ANTONIO... 06/03/17 09:45 Aerobic Blood Culture - Preliminary Resulted Blood Peripheral NO GROWTH IN 1 DAY 06/03/17 09:45 Anaerobic Blood Culture - Preliminary Resulted Blood Peripheral NO GROWTH IN 1 DAY Result Diagram: 06/04/17 0422 06/04/17 0422 Imaging Last Impressions Chest X-Ray 06/03/1739 Signed Impressions: Service Date/Time: Saturday, June 03, 2017 10:00 - CONCLUSION: 1. Hyperinflation consistent with bullous emphysematous change. 2. Chronic interstitial changes. Riky Locke Jr., MD Assessment and Plan Problem List: (1) Atrial fibrillation Assessment and Plan: Atrial fibrillation in the setting of acute on chronic COPD exacerbation ? sepsis. He was started on Cardizem drip. Afib can be multifactorial likely exacerbated by COPD/infection or alcohol withdrawal thus underlying cause must be treated. CHADS2=0 Recommendations: - Cont rate control - Aspirin 325mg PO daily - 2Dechocardiogram - Amio Bolus x1 Further therapy to be determine (2) COPD (chronic obstructive pulmonary disease) (3) Hypoxemia (4) Tobacco abuse (5) Sepsis (6) Pneumonia (7) COPD exacerbation Urbano Ring MD Jun 04, 2017 13:39
[2017-06-04] MEDS ORDERED: AZITHROMYCIN INJ 500 MG in SODIUM CHLOR 0.9% 250 ML INJ 250 ML IV SCH (14:00)
[2017-06-04] MEDS ORDERED: AMIODARONE 150 MG/D5W 97 ML BOLUS 10 MINUTES IV ONE ×2 (15:00)
[2017-06-04] MEDS ORDERED: AMIODARONE INJ 450 MG in D5W (EXCEL BAG) 241 ML IV SCH (18:30)
[2017-06-04] MEDS: REMOVE OLD NICODERM (NICOTINE) PATCH T-DERMAL SCH (21:00)
--- NOTE | 2017-06-04 21:53 | MB ---
cc: Clay APONTE M.D. DATE OF CONSULTATION 06/04/17 REASON FOR CONSULTATION COPD and respiratory failure. PRESENT ILLNESS This is a 71-year-old white male who has had a longstanding history of smoking at least two packs per day for over 45 years, has been having shortness of breath, cough, wheezing and yellowish-white expectoration for the past few days. The patient was extremely weak and the paramedics were called in and he was then brought into the ER and had to be placed on a non-rebreather mask. The patient also stated he was running some fevers and had some chest tightness. Following arrival in the ER the patient had a chest x-ray which demonstrated hyperinflation but no active infiltrates. The patient also had a blood gas study done which showed a pCO2 of 55, pO2 of 99 and on 4 liters of oxygen. He was started on IV antibiotics, IV Solu-Medrol and nebulized DuoNeb solution every 4 hours and now admitted. Following admission the patient did have a heart rate of 130-150 with atrial fibrillation and now cardiology is in consult and he has now been started on Cardizem drip as well as an amiodarone drip. He is alert. Denies any chest pains. He still has a cough. He has wheezing and he denies hemoptysis or leg swelling. His oxygen saturation is 95% on 4 liters of oxygen. PAST MEDICAL HISTORY His past history has included history for COPD and chronic bronchitis but he states that he has not seen a physician in almost 10 years. He had bronchitis in 2007 when he had a complete physical by Dr. Ramos. Denies any surgical history. HABITS The patient smokes a pack and a half per day, has done so for over 40 years. Drinks beer daily. Is presently unemployed. FAMILY HISTORY Noncontributory ALLERGIES None listed. MEDICATIONS List included: 1. Rocephin 2 grams IV daily. 2. Zithromax 500 milligrams IV daily. 3. Solu-Medrol 60 milligrams IV q. 6. 4. Presently on IV Cardizem drip for a-fib, RVR. FAMILY HISTORY Significant for hypertension and COPD. REVIEW OF SYSTEMS The patient has lost weight. He has dizziness. She has sinus drainage, postnasal drip, cough and hoarseness. He has wheezing, epigastric distress and reflux. Denies urinary symptoms and no leg or calf muscle pains. He has some joint pains of the extremities. PHYSICAL EXAMINATION GENERAL: This elderly thinly built white male who is alert and somewhat anxious. VITAL SIGNS: Febrile, blood pressure 140/80, pulse is 145, respirations 24, temperature 100.2. HEENT: Head normocephalic. Pupils are reactive. Tongue was dry. Throat is injected. NECK: Supple with no venous distension. No thyromegaly. No lymphadenopathy. CHEST: Equal movements with an increased AP diameter with diffuse wheezes throughout both lung perez. Prolonged expirations with no crackles. HEART: Heart sounds are irregularly irregular. S1-S2 and tachycardiac without murmur. ABDOMEN: Soft, slightly bloated, no organomegaly. Bowel sounds are faint. EXTREMITIES: Decreased pulses. No edema and there is no calf tenderness. NEURO: Reflexes are 1+ with no gross motor deficits. Cranial nerves are grossly intact. SKIN: No lesions observed. IMPRESSION 1. COPD with acute exacerbation. 2. Hypoxemic and hypercapnic respiratory failure. 3. He has atrial fibrillation with rapid ventricular response. 4. Nicotine dependency. PLAN The patient is presently on oxygen via nasal cannula at 4 liters. We will also use BiPap at night. We will get a CT chest with contrast and continue the antibiotic coverage including Rocephin 1 gram IV daily and Zithromax 500 milligrams a day. We will reduce the Solu-Medrol to 40 milligrams every 6 hours and the DuoNeb solution will be reduced to every 8 hours but held if the heart rate is above 110. The patient will be asked to give a sputum for culture. Continue with IV Cardizem and amiodarone drips and Lovenox 70 milligrams subcu q. 12 for atrial arrhythmias to be added as well. Thank you Dr. Subramanian for this consultation. MD SILVA Covarrubias/LAURA /8:25 PM /9:30 PM
--- NOTE | 2017-06-04 22:12 | RADRPT ---
EXAM DATE/TIME: 06/04/2017 21:53 [place] COMPARISON: No previous studies available for comparison. INDICATIONS : Shortness of breath, evaluate nodules. RADIATION DOSE: 3.95 CTDIvol (mGy) MEDICAL HISTORY : None SURGICAL HISTORY : None. ENCOUNTER: Initial ACUITY: 1 day PAIN SCALE: 0/10 LOCATION: chest TECHNIQUE: Volumetric scanning of the chest was performed. Using automated exposure control and adjustment of t he mA and/or kV according to patient size, radiation dose was kept as low as reasonably achievable to obtain optimal diagnostic quality images. DICOM format image data is available electronically for r eview and comparison. Follow-up recommendations for detected pulmonary nodules are based at a minimum on nodule size and pa tient risk factors according to Fleischner Society Guidelines. FINDINGS: There is moderate to severe centrilobular emphysema with some bullous changes Apices. Small bilateral pleural effusions, left greater than right. There is some dependent consolidation in both lungs and probable bronchopneumonia superior segment left lower lobe. CONCLUSION: 1. Moderate to severe emphysema near the lung apices. 2. Dependent consolidation and the lines with possible bronchopneumonia left lower lobe. Small bilate ral effusions. 3. Moderate to severe coronary calcifications. No adenopathy. Ron Muller MD on June 04, 2017 at 22:08 Board Certified Radiologist. This report was verified electronically.
[2017-06-05] VITALS (21 sets, daily range): BP systolic 95–125; BP diastolic 54–71; PULSE 57–163; RESP 19–33; TEMP 97.3–98.9; O2SAT 89–100
[2017-06-05] MEDS: DILTIAZEM INJ 125 MG in SODIUM CHLORIDE 0.9% INJ 100 ML IV SCH ×2 (00:29→09:55)
[2017-06-05] MEDS: methylPREDNISolone SOD SUCC 125 MG/2 ML VIAL IVP SCH ×4 (00:30→21:11)
[2017-06-05] MEDS: LEVOFLOXACIN 750 MG PREMIX INJ 150 ML IV SCH (01:15)
[2017-06-05] MEDS: CHLORHEXIDINE GLUCONATE 2 % 1 PACK (2 CLOTHS) TOP SCH (04:00)
[2017-06-05] MEDS: SODIUM CHLOR 0.9% 1000 ML INJ 1,000 ML IV SCH ×3 (04:02→22:02)
[2017-06-05] MEDS: RESP: ALBUTEROL 2.5 MG/IPRATROPIUM 0.5 MG NEB (SCH) INH ×3 (07:53→23:07)
[2017-06-05] MEDS ORDERED: METOPROLOL TARTRATE 5 MG/5 ML VIAL ONE (08:31)
[2017-06-05] MEDS: MULTIVITAMINS/MINERALS THERAPEUTIC TAB PO SCH (08:41)
[2017-06-05] MEDS: THIAMINE HCL 100 MG TAB PO SCH (08:41)
[2017-06-05] MEDS: DOCUSATE SODIUM 50 MG/SENNA 8.6 MG TAB PO SCH ×2 (08:41→21:13)
[2017-06-05] MEDS: FOLIC ACID 1 MG TAB PO SCH (08:41)
[2017-06-05] MEDS: guaiFENesin E.R. 600 MG TAB PO SCH ×2 (08:41→21:10)
[2017-06-05] MEDS: PANTOPRAZOLE SOD 40 MG DELAYED RELEASE TAB PO SCH (08:42)
[2017-06-05] MEDS: MAGNESIUM OXIDE 400 MG TAB PO SCH ×3 (08:42→21:10)
[2017-06-05] MEDS: ENOXAPARIN SODIUM 80 MG/0.8 ML SYRINGE SQ SCH ×2 (08:43→21:11)
[2017-06-05] MEDS: NICOTINE 21 MG/24 HR PATCH TD SCH (08:43)
[2017-06-05] MEDS: SODIUM CHLORIDE 0.9% FLUSH 10 ML FLUSH IV FLUSH SCH ×2 (08:43→21:14)
--- NOTE | 2017-06-05 08:46 | PD.CARD.PN ---
Subjective Subjective Remarks Afib with RVR HD stable No CV complaints Objective Medications Current Medications Medications (Trade) Dose Ordered Sig/Sangeeta Route Start Time Stop Time Status Last Admin (Habitrol 21 Mg Patch.24 Hr) 1 patch DAILY TD 06/03/17 15:00 06/04/17 09:03 (NS Flush) 2 ml UNSCH PRN IV FLUSH 06/03/17 13:15 (NS Flush) 2 ml BID IV FLUSH 06/03/17 21:00 06/04/17 21:31 (Tylenol) 650 mg Q4H PRN PO 06/03/17 13:15 (Zofran Inj) 4 mg Q6H PRN IVP 06/03/17 13:15 (Compazine Supp) 25 mg Q12H PRN RECTAL 06/03/17 13:15 (Tylenol) 650 mg Q6H PRN PO 06/03/17 13:15 (Percocet 5-325 Mg) 1 tab Q6H PRN PO 06/03/17 13:15 (Percocet 10-325 Mg) 1 tab Q6H PRN PO 06/03/17 13:15 (Morphine Inj) 2 mg Q3H PRN IV 06/03/17 13:15 (Morphine Inj) 4 mg Q3H PRN IV 06/03/17 13:15 (Morphine Inj) 4 mg Q3H PRN IV 06/03/17 13:15 (Narcan Inj) 0.4 mg UNSCH PRN IV 06/03/17 13:15 (Roxanna-Colace) 1 tab BID PO 06/03/17 21:00 06/04/17 09:02 (Milk Of Magnesia Liq) 30 ml Q12H PRN PO 06/03/17 13:15 (Senokot) 17.2 mg Q12H PRN PO 06/03/17 13:15 (Dulcolax Supp) 10 mg DAILY PRN RECTAL 06/03/17 13:15 (Lactulose Liq) 30 ml DAILY PRN PO 06/03/17 13:15 (Mag-Ox) 400 mg BID PO 06/03/17 21:00 06/04/17 21:31 (Mucinex Er) 600 mg BID PO 06/03/17 14:45 06/04/17 21:31 (Protonix) 40 mg DAILY PO 06/03/17 14:45 06/04/17 09:03 Miscellaneous Information 1 1 HS T-DERMAL 06/03/17 21:00 06/04/17 21:00 Diltiazem HCl 125 mg/Sodium Chloride 125 ml @ 0 mls/hr TITRATE IV 06/03/17 23:00 06/05/17 00:29 (Levaquin 750 Mg Premix Inj) 150 ml @ 100 mls/hr Q24H IV 06/04/17 02:00 06/05/17 01:15 Miscellaneous Information 1 Q361D XX 06/04/17 01:45 06/04/17 01:45 (Chlorhexidine 2% Cloth) 3 pack Taper DAILY@04 TOP 06/04/17 04:00 05/31/18 03:59 06/05/17 04:00 (Chlorhexidine 2% Cloth) 3 pack UNSCH PRN TOP 06/04/17 01:45 (Romazicon Inj) 0.2 mg Q1M PRN IV PUSH 06/04/17 08:30 (Ativan) 1 mg Q4H PRN PO 06/04/17 08:30 (Ativan Inj) 1 mg Q4H PRN IV PUSH 06/04/17 08:30 (Ativan) 2 mg Q2H PRN PO 06/04/17 08:30 (Ativan Inj) 2 mg Q2H PRN IV PUSH 06/04/17 08:30 (Ativan Inj) 2 mg Q1H PRN IV PUSH 06/04/17 08:30 (Ativan Inj) 2 mg Q15M PRN IV PUSH 06/04/17 08:30 (Haldol Inj) 2 mg Q15M PRN IM 06/04/17 08:30 (Folate) 1 mg DAILY PO 06/04/17 09:00 06/09/17 08:59 06/04/17 11:51 (Vitamin B1) 100 mg DAILY PO 06/04/17 09:00 06/04/17 11:56 (Theragran M Tab) 1 tab DAILY PO 06/04/17 09:00 06/09/17 08:59 06/04/17 11:51 Enoxaparin Sodium 70 mg 70 mg Q12H SQ 06/04/17 10:00 06/04/17 21:31 (NS 1000 ml Inj) 1,000 ml @ 125 mls/hr Q8H IV 06/04/17 10:45 06/05/17 04:02 (SoluMEDROL INJ) 40 mg Q6HR IVP 06/05/17 00:00 06/05/17 05:50 Budesonide/ Formoterol Fumarate 1 puff 1 puff Q12HR INH 06/04/17 21:00 06/04/17 21:00 (Cordarone Inj/ D5W ([place]) Inj) 250 ml @ 0 mls/hr CONTINUOUS IV 06/04/17 18:30 06/05/17 04:02 Vital Signs / I&O Vital Signs Date Time Temp Pulse Resp B/P Pulse Ox O2 Delivery O2 Flow Rate FiO2 06/05/17 07:54 100 Nasal Cannula 3.00 06/05/17 06:00 133 06/05/17 04:00 138 06/05/17 04:00 98.9 138 19 125/57 100 06/05/17 04:00 100 Bi-Pap 35 06/05/17 02:00 144 06/05/17 00:00 98.5 138 25 107/63 98 06/05/17 00:00 138 06/05/17 00:00 98 Nasal Cannula 3.00 06/04/17 22:00 158 06/04/17 20:00 167 06/04/17 20:00 98 Nasal Cannula 3.00 06/04/17 20:00 98.5 167 28 92/65 99 06/04/17 19:23 98 Nasal Cannula 3.00 06/04/17 17:00 174 06/04/17 17:00 174 06/04/17 16:45 170 06/04/17 16:30 167 06/04/17 16:15 170 06/04/17 16:00 99 Nasal Cannula 3.00 50 06/04/17 16:00 168 19 115/64 100 06/04/17 16:00 99.1 06/04/17 16:00 168 06/04/17 16:00 168 06/04/17 15:45 156 06/04/17 15:30 155 06/04/17 15:15 177 06/04/17 15:00 172 06/04/17 15:00 172 06/04/17 14:00 174 06/04/17 12:08 98 Nasal Cannula 3.00 06/04/17 12:00 99 Nasal Cannula 2.00 06/04/17 10:00 161 35 97/61 97 06/04/17 09:00 157 25 105/57 100 I/O 06/04/17 06/04/17 06/04/17 06/05/17 06/05/17 06/05/17 06:59 14:59 22:59 06:59 14:59 22:59 Intake Total 1760 ml 4557 ml 1676 ml 1128 ml Output Total 300 ml 950 ml 350 ml Balance 1760 ml 4257 ml 726 ml 778 ml Intake Oral 60 ml 610 ml 300 ml IV Total 1700 ml 3947 ml 1376 ml 1128 ml Output Urine Total 300 ml 950 ml 350 ml # Voids 1 # Bowel Movements 0 Physical Exam GENERAL: Well-nourished, well-developed patient. SKIN: Warm and dry. HEAD: Normocephalic. EYES: No scleral icterus. No injection or drainage. NECK: Supple, trachea midline. No JVD or lymphadenopathy. CARDIOVASCULAR: Irr Irr no murmurs, gallops, or rubs. RESPIRATORY: Breath sounds equal bilaterally. No accessory muscle use. GASTROINTESTINAL: Abdomen soft, non-tender, nondistended. EXTREMITIES: No cyanosis, or edema. NEUROLOGICAL: Awake, alert, and oriented x 3. Non-focal. Imaging Last Impressions Chest CT 06/04/172026 Signed Impressions: Service Date/Time: May 21:53 - CONCLUSION: 1. Moderate to severe emphysema near the lung apices. 2. Dependent consolidation and the lines with possible bronchopneumonia left lower lobe. Small bilateral effusions. 3. Moderate to severe coronary calcifications. No adenopathy. Ron Muller MD Chest X-Ray 06/03/17 0975 Signed Impressions: Service Date/Time: Saturday, June 03, 2017 10:00 - CONCLUSION: 1. Hyperinflation consistent with bullous emphysematous change. 2. Chronic interstitial changes. Riky Locke Jr., MD Assessment and Plan Problem List: (1) Atrial fibrillation Assessment and Plan: Afib with RVR on Dopamine and Cardizem drip. Hemodynamically stable. ? alcohol withdrawal, anxious this AM on CIWA protocol. Start Lopressor, if he does not respond to medication will plan for PRISCA and Cardioversion today. (2) COPD (chronic obstructive pulmonary disease) (3) Hypoxemia (4) Tobacco abuse (5) Sepsis (6) Pneumonia (7) COPD exacerbation Urbano Ring MD Jun 05, 2017 08:46
[2017-06-05] MEDS: BUDESONIDE-FORMOTEROL 160/4.5 MCG INHALER INH SCH ×2 (09:00→21:00)
[2017-06-05] MEDS: METOPROLOL TARTRATE 50 MG TAB PO SCH ×2 (09:01→21:00)
--- NOTE | 2017-06-05 10:08 | HHI.PR ---
Subjective Remarks This is a 71-year-old gentleman with a history of tobacco use, unknown past medical history, who presents today VIA EMS with cough and shortness of breath. The patient states that he's been in bed since Thursday. He states he's been weak and short of breath since then. When paramedics arrived they found his O2 sat to be 82. He is placed on 100% nonrebreather which brought up to 99% . He also reports low-grade fevers. The patient felt better with the O2. He has not seen a doctor since 2007. He says at that time he had no medical issues. He does smoke half pack of cigarettes had previously been up to 2 packs a day. Then down to one pack and then now to half pack a day. And states he drinks one to 2 beers per day. Is not currently taking any medication. His is been wanting him to come to the hospital since last week 06-04 events last night noted Transferred to ICU on a Cardizem drip Still short of breath Nurse's alerting me that he actually drinks much more alcohol than he states will need CIWA protocol Discussed with patient RN and family On BiPAP still short of breath Consult cardiology Consult pulmonary 06-05 patient has rodney due to urinary retention seen by cardiology dr pierce- on amiodarone and Cardizem drip Medications have been adjusted by pulmonary. May need PRISCA and cardioversion later today Discussed with RN and patient and patient's family Wear BiPAP at rest or when sleeping am labs Objective Vitals Vital Signs Date Time Temp Pulse Resp B/P Pulse Ox O2 Delivery O2 Flow Rate FiO2 06/05/17 07:54 100 Nasal Cannula 3.00 06/05/17 06:00 133 06/05/17 04:00 138 06/05/17 04:00 98.9 138 19 125/57 100 06/05/17 04:00 100 Bi-Pap 35 06/05/17 02:00 144 06/05/17 00:00 98.5 138 25 107/63 98 06/05/17 00:00 138 06/05/17 00:00 98 Nasal Cannula 3.00 06/04/17 22:00 158 06/04/17 20:00 167 06/04/17 20:00 98 Nasal Cannula 3.00 06/04/17 20:00 98.5 167 28 92/65 99 06/04/17 19:23 98 Nasal Cannula 3.00 06/04/17 17:00 174 06/04/17 17:00 174 06/04/17 16:45 170 06/04/17 16:30 167 06/04/17 16:15 170 06/04/17 16:00 99 Nasal Cannula 3.00 50 06/04/17 16:00 168 19 115/64 100 06/04/17 16:00 99.1 06/04/17 16:00 168 06/04/17 16:00 168 06/04/17 15:45 156 06/04/17 15:30 155 06/04/17 15:15 177 06/04/17 15:00 172 06/04/17 15:00 172 06/04/17 14:00 174 06/04/17 12:08 98 Nasal Cannula 3.00 06/04/17 12:00 99 Nasal Cannula 2.00 I/O 06/04/17 06/04/17 06/04/17 06/05/17 06/05/17 06/05/17 07:00 15:00 23:00 07:00 15:00 23:00 Intake Total 1760 ml 4557 ml 1676 ml 1128 ml Output Total 300 ml 950 ml 350 ml Balance 1760 ml 4257 ml 726 ml 778 ml Intake Oral 60 ml 610 ml 300 ml IV Total 1700 ml 3947 ml 1376 ml 1128 ml Output Urine Total 300 ml 950 ml 350 ml # Voids 1 # Bowel Movements 0 Result Diagram: 06/04/17 0422 06/04/17 0422 Other Results Laboratory Tests Test 06/03/17 06/03/17 06/03/17 06/03/17 09:45 15:25 19:25 22:00 White Blood Count 20.0 TH/MM3 Red Blood Count 4.80 MIL/MM3 Hemoglobin 14.4 GM/DL Hematocrit 44.3 % Mean Corpuscular Volume 92.3 FL Mean Corpuscular Hemoglobin 29.9 PG Mean Corpuscular Hemoglobin 32.4 % Concent Red Cell Distribution Width 14.4 % Platelet Count 292 TH/MM3 Mean Platelet Volume 10.7 FL Neutrophils (%) (Auto) 87.1 % Lymphocytes (%) (Auto) 3.7 % Monocytes (%) (Auto) 8.9 % Eosinophils (%) (Auto) 0.0 % Basophils (%) (Auto) 0.3 % Neutrophils # (Auto) 17.4 TH/MM3 Lymphocytes # (Auto) 0.7 TH/MM3 Monocytes # (Auto) 1.8 TH/MM3 Eosinophils # (Auto) 0.0 TH/MM3 Basophils # (Auto) 0.1 TH/MM3 CBC Comment AUTO DIFF Differential Comment AUTO DIFF CONFIRMED Platelet Estimate NORMAL Platelet Morphology Comment NORMAL Blood Gas Puncture Site RT RADIAL Blood Gas Patient Temperature 98.6 Blood Gas HCO3 29 mmol/L Blood Gas Base Excess 3.4 mmol/L Blood Gas Oxygen Saturation 95 % Arterial Blood pH 7.36 Arterial Blood Partial 52 mmHg Pressure CO2 Arterial Blood Partial 93 mmHg Pressure O2 Arterial Blood Oxygen Content 19.2 Vol % Arterial Blood 1.6 % Carboxyhemoglobin Arterial Blood Methemoglobin 0.8 % Blood Gas Hemoglobin 14.4 G/DL Oxygen Delivery Device NASAL CANNULA Blood Gas Liter Flow 4 L/M Sodium Level 138 MEQ/L Potassium Level 4.7 MEQ/L Chloride Level 100 MEQ/L Carbon Dioxide Level 29.5 MEQ/L Anion Gap 9 MEQ/L Blood Urea Nitrogen 33 MG/DL Creatinine 1.16 MG/DL Estimat Glomerular Filtration 62 ML/MIN Rate Random Glucose 126 MG/DL Lactic Acid Level 1.6 mmol/L Calcium Level 9.7 MG/DL Total Bilirubin 0.8 MG/DL Aspartate Amino Transf 29 U/L (AST/SGOT) Alanine Aminotransferase 27 U/L (ALT/SGPT) Alkaline Phosphatase 78 U/L Total Creatine Kinase 59 U/L 42 U/L 113 U/L Troponin I LESS THAN 0.02 LESS THAN 0.02 LESS THAN 0.02 NG/ML NG/ML NG/ML Total Protein 8.2 GM/DL Albumin 3.0 GM/DL Urine Color YELLOW Urine Turbidity HAZY Urine pH 5.5 Urine Specific [place] 1.021 Urine Protein 30 mg/dL Urine Glucose (UA) NEG mg/dL Urine Ketones NEG mg/dL Urine Occult Blood NEG Urine Nitrite NEG Urine Bilirubin NEG Urine Urobilinogen LESS THAN 2.0 MG/DL Urine Leukocyte Esterase NEG Urine RBC 4 /hpf Urine WBC 10 /hpf Urine Squamous Epithelial 2 /hpf Cells Urine Transitional Epithelial 1 /hpf Cells Urine Renal Epithelial Cells <1 /hpf Urine Amorphous Sediment RARE Urine Bacteria RARE /hpf Urine Hyaline Casts 95 /lpf Urine Mucus FEW /lpf Microscopic Urinalysis Comment CATH-CULTURE IND Test 06/03/17 06/03/17 06/04/17 06/04/17 22:55 23:50 01:00 04:22 Blood Gas Puncture Site LT RADIAL Blood Gas Patient Temperature 98.6 Blood Gas HCO3 26 mmol/L Blood Gas Base Excess 0.4 mmol/L Blood Gas Oxygen Saturation 96 % Arterial Blood pH 7.30 Arterial Blood Partial 55 mmHg Pressure CO2 Arterial Blood Partial 99 mmHg Pressure O2 Arterial Blood Oxygen Content 20.1 Vol % Arterial Blood 1.0 % Carboxyhemoglobin Arterial Blood Methemoglobin 0.8 % Blood Gas Hemoglobin 14.9 G/DL Oxygen Delivery Device NASAL CANNULA Blood Gas Liter Flow 4 L/M White Blood Count 14.3 TH/MM3 12.4 TH/MM3 Red Blood Count 4.34 MIL/MM3 4.06 MIL/MM3 Hemoglobin 13.1 GM/DL 12.4 GM/DL Hematocrit 40.4 % 38.1 % Mean Corpuscular Volume 93.2 FL 93.9 FL Mean Corpuscular Hemoglobin 30.2 PG 30.5 PG Mean Corpuscular Hemoglobin 32.5 % 32.5 % Concent Red Cell Distribution Width 14.3 % 14.0 % Platelet Count 260 TH/MM3 248 TH/MM3 Mean Platelet Volume 10.1 FL 10.3 FL Neutrophils (%) (Auto) 96.2 % 93.6 % Lymphocytes (%) (Auto) 2.3 % 3.7 % Monocytes (%) (Auto) 1.4 % 2.5 % Eosinophils (%) (Auto) 0.0 % 0.0 % Basophils (%) (Auto) 0.1 % 0.2 % Neutrophils # (Auto) 13.8 TH/MM3 11.6 TH/MM3 Lymphocytes # (Auto) 0.3 TH/MM3 0.5 TH/MM3 Monocytes # (Auto) 0.2 TH/MM3 0.3 TH/MM3 Eosinophils # (Auto) 0.0 TH/MM3 0.0 TH/MM3 Basophils # (Auto) 0.0 TH/MM3 0.0 TH/MM3 CBC Comment DIFF FINAL DIFF FINAL Differential Comment D-Dimer Quantitative (PE/DVT) 1.51 MG/L FEU Sodium Level 137 MEQ/L 138 MEQ/L Potassium Level 4.2 MEQ/L 4.3 MEQ/L Chloride Level 101 MEQ/L 103 MEQ/L Carbon Dioxide Level 27.5 MEQ/L 28.9 MEQ/L Anion Gap 9 MEQ/L 6 MEQ/L Blood Urea Nitrogen 41 MG/DL 39 MG/DL Creatinine 1.08 MG/DL 0.92 MG/DL Estimat Glomerular Filtration 68 ML/MIN 82 ML/MIN Rate Random Glucose 245 MG/DL 164 MG/DL Calcium Level 8.5 MG/DL 8.2 MG/DL Magnesium Level 2.6 MG/DL Total Bilirubin 0.4 MG/DL 0.3 MG/DL Aspartate Amino Transf 19 U/L 18 U/L (AST/SGOT) Alanine Aminotransferase 23 U/L 23 U/L (ALT/SGPT) Alkaline Phosphatase 73 U/L 65 U/L Troponin I LESS THAN 0.02 NG/ML B-Type Natriuretic Peptide 118 PG/ML Total Protein 7.2 GM/DL 6.7 GM/DL Albumin 2.5 GM/DL 2.3 GM/DL Nasal Screen MRSA (PCR) MRSA NOT DETECTED Triglycerides Level 61 MG/DL Cholesterol Level 106 MG/DL LDL Cholesterol 42 MG/DL HDL Cholesterol 52.2 MG/DL Cholesterol/HDL Ratio 2.03 RATIO Imaging Last Impressions Chest CT 06/04/172026 Signed Impressions: Service Date/Time: May 21:53 - CONCLUSION: 1. Moderate to severe emphysema near the lung apices. 2. Dependent consolidation and the lines with possible bronchopneumonia left lower lobe. Small bilateral effusions. 3. Moderate to severe coronary calcifications. No adenopathy. Ron Pierce MD Chest X-Ray 06/03/17 0968 Signed Impressions: Service Date/Time: Saturday, June 03, 2017 10:00 - CONCLUSION: 1. Hyperinflation consistent with bullous emphysematous change. 2. Chronic interstitial changes. Riky Locke Jr., MD Objective Remarks GENERAL: This is a well-nourished, well-developed patient, in moderate distress appears to have some wasting in his chest area SKIN: No rashes, ecchymoses or lesions. Cool and dry. HEAD: Atraumatic. Normocephalic. No temporal or scalp tenderness. EYES: Pupils equal round and reactive. Extraocular motions intact. No scleral icterus. No injection or drainage. ENT: Nose without bleeding, purulent drainage or septal hematoma. Throat without erythema, tonsillar hypertrophy or exudate. Uvula midline. Airway patent. Tongue is midline NECK: Trachea midline. No JVD or lymphadenopathy. Supple, nontender, no meningeal signs. CARDIOVASCULAR: IRRegular rate and rhythm without murmurs, gallops, or rubs. S1 -S2 no S3 or S4 RESPIRATORY: Coarse breath sounds. Breath sounds equal bilaterally. Bronchitis and wheezes throughout GASTROINTESTINAL: Abdomen soft, non-tender, nondistended. No hepato-splenomegaly , or palpable masses. No guarding. MUSCULOSKELETAL: Extremities without clubbing, cyanosis, or edema. No joint tenderness, effusion, or edema noted. No calf tenderness. Negative Homans sign bilaterally. NEUROLOGICAL: Awake and alert. Cranial nerves II through XII intact. Motor and sensory grossly within normal limits. Five out of 5 muscle strength in all muscle groups. Normal speech. Insight and judgment limited at this time Rodney catheter in place mood and behaviors appropriate Medications and IVs Current Medications Ceftriaxone Sodium 2000 mg/ Sodium Chloride 100 ml @ 200 mls/hr ONCE STAT IV Last administered on 06/03/17 12:47; Start 06/03/17 at 11:38; Stop 06/03/17 at 12:07; Status DC Azithromycin 500 mg/Sodium Chloride 250 ml @ 250 mls/hr ONCE STAT IV Last administered on 06/03/17 13:35; Start 06/03/17 at 11:38; Stop 06/03/17 at 12:37 ; Status DC Sodium Chloride 1,000 ml @ 125 mls/hr Q8H IV Last administered on 06/03/17 12 :48; Start 06/03/17 at 12:30; Stop 06/03/17 at 14:42; Status DC Sodium Chloride (NS 1000 ml Inj) 1,000 ml @ 75 mls/hr [id number] IV Last administered on 06/04/17 05:16; Start 06/03/17 at 15:00; Stop 06/04/17 at 19:12 ; Status DC Sodium Chloride (NS Flush) 2 ml BID IV FLUSH ; Start 06/03/17 at 21:00; Status UNV Sodium Chloride (NS Flush) 2 ml UNSCH PRN IV FLUSH FLUSH AFTER USING IV ACCESS ; Start 06/03/17 at 13:15; Status UNV Albuterol/ Ipratropium (Duoneb Neb) 1 ampule Q4HR NEB INH Last administered on 8/17/17at 15:47; Start 06/03/17 at 16:00; Stop 06/04/17 at 18:10; Status DC Albuterol Sulfate (Albuterol Neb) 2.5 mg Q2HR NEB PRN INH SHORTNESS OF BREATH; Start 06/03/17 at 13:15 Budesonide/ Formoterol Fumarate (Symbicort 160-4.5 Inh) 2 puff Q12HR INH Last administered on 06/04/17 11:51; Start 06/03/17 at 21:00; Stop 06/04/17 at 18:23 ; Status DC Methylprednisolone Sodium Succinate 60 mg 60 mg Q6H IVP Last administered on 15:25; Start 06/03/17 at 15:00; Stop 06/04/17 at 18:11; Status DC Ceftriaxone Sodium/Sodium Chloride (Rocephin Inj/NS Inj) 100 ml @ 200 mls/hr Q24H IV ; Start 06/04/17 at 12:00; Stop 06/04/17 at 12:00; Status DC Nicotine 1 patch 1 patch DAILY TD Last administered on 06/05/17 08:43; Start 06/03/17 at 15:00 Azithromycin/ Sodium Chloride (Zithromax Inj/ NS 250 ml Inj) 250 ml @ 250 mls/ hr Q24H IV ; Start 06/04/17 at 14:00; Stop 06/04/17 at 14:00; Status DC Enoxaparin Sodium (Lovenox Inj) 40 mg Q24H SQ Last administered on 06/03/17 15 :42; Start 06/03/17 at 15:00; Stop 06/04/17 at 08:36; Status DC Sodium Chloride (NS Flush) 2 ml UNSCH PRN IV FLUSH FLUSH AFTER USING IV ACCESS ; Start 06/03/17 at 13:15 Sodium Chloride (NS Flush) 2 ml BID IV FLUSH Last administered on 06/05/17 08: 43; Start 06/03/17 at 21:00 Acetaminophen (Tylenol) 650 mg Q4H PRN PO TEMP > 100.4; Start 06/03/17 at 13:15 Ondansetron HCl (Zofran Inj) 4 mg Q6H PRN IVP NAUSEA OR VOMITING; Start at 13:15 Prochlorperazine (Compazine Supp) 25 mg Q12H PRN RECTAL NAUSEA OR VOMITING; Start 06/03/17 at 13:15 Acetaminophen (Tylenol) 650 mg Q6H PRN PO PAIN SCALE 1 TO 2; Start 06/03/17 at 13:15 Oxycodone/ Acetaminophen (Percocet 5-325 Mg) 1 tab Q6H PRN PO PAIN SCALE 3 TO 5; Start 06/03/17 at 13:15 Oxycodone/ Acetaminophen (Percocet 10-325 Mg) 1 tab Q6H PRN PO PAIN SCALE 6 TO 10; Start 06/03/17 at 13:15 Morphine Sulfate (Morphine Inj) 2 mg Q3H PRN IV Pain 3-5; if unable to take PO ; Start 06/03/17 at 13:15 Morphine Sulfate (Morphine Inj) 4 mg Q3H PRN IV Pain 6-10;if unable to take PO ; Start 06/03/17 at 13:15 Morphine Sulfate (Morphine Inj) 4 mg Q3H PRN IV BREAKTHROUGH PAIN; Start at 13:15 Naloxone HCl (Narcan Inj) 0.4 mg UNSCH PRN IV SEE LABEL COMMENTS; Start at 13:15 Senna/Docusate Sodium ([place]ox[place]-Colace) 1 tab BID PO Last administered on t 08:41; Start 06/03/17 at 21:00 Magnesium Hydroxide (Milk Of Magnesia Liq) 30 ml Q12H PRN PO MILD - MODERATE CONSTIPATION; Start 06/03/17 at 13:15 Sennosides (Senokot) 17.2 mg Q12H PRN PO MODERATE - SEVERE CONSTIPATION; Start 06/03/17 at 13:15 Bisacodyl (Dulcolax Supp) 10 mg DAILY PRN RECTAL SEVERE CONSITIPATION; Start at 13:15 Lactulose (Lactulose Liq) 30 ml DAILY PRN PO SEVERE CONSITIPATION; Start at 13:15 Sodium Chloride (NS Flush) 2 ml UNSCH PRN IV FLUSH FLUSH AFTER USING IV ACCESS ; Start 06/03/17 at 13:15; Status UNV Sodium Chloride (NS Flush) 2 ml BID IV FLUSH ; Start 06/03/17 at 21:00; Status UNV Magnesium Oxide (Mag-Ox) 400 mg BID PO Last administered on 06/05/17 08:42; Start 06/03/17 at 21:00 Guaifenesin (Mucinex Er) 600 mg BID PO Last administered on 06/05/17 08:41; Start 06/03/17 at 14:45 Pantoprazole Sodium (Protonix) 40 mg DAILY PO Last administered on 06/05/17 08 :42; Start 06/03/17 at 14:45 Miscellaneous Information 1 HS T-DERMAL Last administered on 06/04/17 21:00; Start 06/03/17 at 21:00 Pneumococcal Polyvalent Vaccine (Pneumovax-23 Inj) 25 mcg ONCE ONCE IM ; Start 06/04/17 at 09:00; Stop 06/04/17 at 09:01; Status DC Diltiazem HCl 20 mg 20 mg ONCE ONCE IVP Last administered on 06/03/17 23:15; Start 06/03/17 at 23:00; Stop 06/03/17 at 23:07; Status DC Diltiazem HCl/ Sodium Chloride (Cardizem Inj/NS Inj) 125 ml @ 0 mls/hr TITRATE IV Last administered on 06/05/17 09:55; Start 06/03/17 at 23:00 Adenosine (Adenocard Inj) 6 mg ONCE ONCE IV PUSH Last administered on 23:33; Start 06/03/17 at 23:30; Stop 06/03/17 at 23:31; Status DC Adenosine (Adenocard Inj) 6 mg ONCE ONCE IV PUSH ; Start 06/03/17 at 23:30; Stop 06/03/17 at 23:31; Status DC Adenosine 12 mg 12 mg ONCE ONCE IV PUSH Last administered on 06/03/17 23:38; Start 06/03/17 at 23:30; Stop 06/03/17 at 23:31; Status DC Sodium Chloride (NS 500 ml Inj) 500 ml @ 500 mls/hr BOLUS ONCE IV Last administered on 06/04/17 01:53; Start 06/04/17 at 01:15; Stop 06/04/17 at 02:14 ; Status DC Enoxaparin Sodium 70 mg 70 mg ONCE ONCE SQ Last administered on 06/04/17 01: 55; Start 06/04/17 at 01:15; Stop 06/04/17 at 01:16; Status DC Levofloxacin/ Dextrose (Levaquin 750 Mg Premix Inj) 150 ml @ 100 mls/hr Q24H IV Last administered on 06/05/17 01:15; Start 06/04/17 at 02:00 Miscellaneous Information 1 [id number] Last administered on 06/04/17 01:45; Start 06/04/17 at 01:45 Chlorhexidine Gluconate (Chlorhexidine 2% Cloth) 3 pack Taper DAILY@04 TOP Last administered on 06/05/17 04:00; Start 06/04/17 at 04:00; Stop 05/31/18 at 03:59 Chlorhexidine Gluconate 3 pack 3 pack UNSCH PRN TOP HYGIENIC CARE; Start at 01:45 Sodium Chloride (NS 1000 ml Inj) 1,000 ml @ 999 mls/hr BOLUS ONCE IV Last administered on 06/04/17 05:12; Start 06/04/17 at 05:00; Stop 06/04/17 at 06:00 ; Status DC Flumazenil (Romazicon Inj) 0.2 mg Q1M PRN IV PUSH SEE LABEL COMMENTS; Start at 08:30 Lorazepam (Ativan) 1 mg Q4H PRN PO CIWA 8 - 10; Start 06/04/17 at 08:30 Lorazepam (Ativan Inj) 1 mg Q4H PRN IV PUSH CIWA 8 - 10; Start 06/04/17 at 08: 30 Lorazepam (Ativan) 2 mg Q2H PRN PO CIWA 11-14; Start 06/04/17 at 08:30 Lorazepam (Ativan Inj) 2 mg Q2H PRN IV PUSH CIWA 11-14; Start 06/04/17 at 08:30 Lorazepam (Ativan Inj) 2 mg Q1H PRN IV PUSH CIWA 15-20; Start 06/04/17 at 08:30 Lorazepam (Ativan Inj) 2 mg Q15M PRN IV PUSH CIWA > 20; Start 06/04/17 at 08:30 Flumazenil (Romazicon Inj) 0.2 mg Q1M PRN IV PUSH SEE LABEL COMMENTS; Start at 08:30; Status UNV Haloperidol Lactate (Haldol Inj) 2 mg Q15M PRN IM SEE LABEL COMMENTS; Start at 08:30 Sodium Chloride (NS Flush) 2 ml UNSCH PRN IV FLUSH FLUSH AFTER USING IV ACCESS ; Start 06/04/17 at 08:30; Status Cancel Sodium Chloride (NS Flush) 2 ml BID IV FLUSH ; Start 06/04/17 at 09:00; Status Cancel Folic Acid (Folate) 1 mg DAILY PO Last administered on 06/05/17 08:41; Start 06/04/17 at 09:00; Stop 06/09/17 at 08:59 Thiamine HCl (Vitamin B1) 100 mg DAILY PO Last administered on 06/05/17 08:41 ; Start 06/04/17 at 09:00 Multivitamins/ Minerals Therapeutic (Theragran M Tab) 1 tab DAILY PO Last administered on 06/05/17 08:41; Start 06/04/17 at 09:00; Stop 06/09/17 at 08:59 Ondansetron HCl (Zofran Inj) 4 mg Q6H PRN IV NAUSEA OR VOMITING; Start at 08:30; Status UNV Pantoprazole Sodium (Protonix) 40 mg DAILY PO ; Start 06/04/17 at 09:00; Status UNV Clonidine (Catapres) 0.1 mg Q6H PRN PO SEE LABEL COMMENTS; Start 06/04/17 at 08 :30; Stop 06/05/17 at 08:41; Status DC Enoxaparin Sodium 70 mg 70 mg Q12H SQ Last administered on 06/05/17 08:43; Start 06/04/17 at 10:00 Sodium Chloride 1,000 ml @ 999 mls/hr BOLUS ONCE IV Last administered on 06/04 13:13; Start 06/04/17 at 10:45; Stop 06/04/17 at 11:45; Status DC Sodium Chloride 1,000 ml @ 125 mls/hr Q8H IV Last administered on 06/05/17 04 :02; Start 06/04/17 at 10:45 Amiodarone HCl/ Dextrose (Cordarone Inj/ D5W 100 ml Inj) 100 ml @ 400 mls/hr NOW ONCE IV Last administered on 06/04/17 15:11; Start 06/04/17 at 15:00; Stop 06/04/17 at 15:14; Status DC Albuterol/ Ipratropium (Duoneb Neb) 1 ampule Q8HR NEB INH Last administered on 06/05/17 07:53; Start 06/05/17 at 00:00 Methylprednisolone Sodium Succinate (SoluMEDROL INJ) 40 mg Q6HR IVP Last administered on 06/05/17 05:50; Start 06/05/17 at 00:00 Budesonide/ Formoterol Fumarate 1 puff 1 puff Q12HR INH Last administered on 21:00; Start 06/04/17 at 21:00 Amiodarone HCl/ Dextrose (Cordarone Inj/ D5W ([place]) Inj) 250 ml @ 0 mls/hr CONTINUOUS IV Last administered on 06/05/17 04:02; Start 06/04/17 at 18:30 Metoprolol Tartrate (Lopressor Inj) 5 mg STK-MED ONCE .ROUTE Last administered on 06/05/17 08:44; Start 06/05/17 at 08:31; Stop 06/05/17 at 08:32; Status DC Metoprolol Tartrate (Lopressor) 50 mg Q12HR PO Last administered on 06/05/17 09:01; Start 06/05/17 at 09:00 Urinary Catheter: Yes Assessment to: Continue Rodney insert reason: Obstruction/Retention Vascular Central Line Catheter: No A/P Problem List: (1) Hypoxemia ICD Code: R09.02 Status: Acute (2) Tobacco abuse ICD Code: Z72.0 Status: Acute (3) Sepsis ICD Code: A41.9 Status: Acute (4) COPD (chronic obstructive pulmonary disease) ICD Code: J44.9 Status: Acute (5) Pneumonia ICD Code: J18.9 Status: Acute (6) COPD exacerbation ICD Code: J44.1 Status: Acute (7) Atrial fibrillation ICD Code: I48.91 Status: Acute Assessment and Plan Pneumonia continue on incentive spirometry continue on Mucinex continue on DuoNeb's continue on Zithromax and Rocephin on oxygen with incentive spirometry and Mucinex COPD exacerbation NicoDerm patch. Solu-Medrol CONSULT PULMONARY--veins on BiPAP when trying to sleep desats when sleeping Tobacco abuse smoking cessation recommended NicoDerm patch Sepsis aggressive fluid rehydration and antibiotics treatment Chronic alcohol use CIWA AFIB- ON CARDIZEM DRIP and amiodarone drip- IN ICU- WAS GIVEN ADENOSINE- BUT STILL ON CARDIZEM DRIP NEEDS ECHO AND CARDIOLOGY CONSULT LOVENOX 70MG SUBQ BID ECHO AND CONSULT CARDIO ALCOHOL ABUSE- CIWA PROTOCOLS Continued DVT and GI prophylaxis Shekhar Subramanian DO Jun 05, 2017 10:08
[2017-06-05 11:28] LABS: AUTOMATED NEUTROPHIL # 20.1 TH/MM3 (1.8-7.7); BASOPHIL % 0.1 % (0.0-2.0); HEMATOCRIT 36.9 % (39.0-51.0); LYMPH % 2.2 % (9.0-44.0); LYMPHOCYTE # 0.5 TH/MM3 (1.0-4.8); MEAN CELL VOLUME 93.4 FL (80.0-100.0); MEAN CORPUSCULAR HEMOGLOBIN 29.9 PG (27.0-34.0); NEUT % 94.7 % (16.0-70.0); PLATELET COUNT 280 TH/MM3 (150-450); RED BLOOD COUNT 3.95 MIL/MM3 (4.50-5.90); RED CELL DISTRIBUTION WIDTH 14.6 % (11.6-17.2); WHITE BLOOD COUNT 21.2 TH/MM3 (4.0-11.0)
[2017-06-05 11:34] LABS: HEMO FLAGS AUTO DIFF
[2017-06-05 11:59] LABS: ALKALINE PHOSPHATASE 53 U/L (45-117); ALT (GPT) 25 U/L (12-78); ANION GAP 4 MEQ/L (5-15); AST (GOT) 29 U/L (15-37); BICARBONATE 26.6 MEQ/L (21.0-32.0); BLOOD UREA NITROGEN 28 MG/DL (7-18); CHLORIDE 110 MEQ/L (98-107); GLOMERULAR FILTRATION RATE 102 ML/MIN (>89); MAGNESIUM 2.5 MG/DL (1.5-2.5); SODIUM (NA) 141 MEQ/L (136-145); TOTAL BILIRUBIN ADULT 0.2 MG/DL (0.2-1.0)
--- NOTE | 2017-06-05 12:27 | HHI.PR ---
Subjective Remarks Alert and on Bipap this am. HR is better. On Lopressor and Cardizem, Amiodarone. Objective Vital Signs Date Time Temp Pulse Resp B/P Pulse Ox O2 Delivery O2 Flow Rate FiO2 06/05/17 11:00 89 21 101/56 97 06/05/17 11:00 89 06/05/17 10:00 132 06/05/17 10:00 132 21 95/59 89 06/05/17 09:00 143 33 103/64 94 06/05/17 08:00 Nasal Cannula 3.00 35 06/05/17 08:00 98.2 06/05/17 08:00 163 25 115/71 100 06/05/17 07:54 100 Nasal Cannula 3.00 06/05/17 06:00 133 06/05/17 04:00 138 06/05/17 04:00 98.9 138 19 125/57 100 06/05/17 04:00 100 Bi-Pap 35 06/05/17 02:00 144 06/05/17 00:00 98.5 138 25 107/63 98 06/05/17 00:00 138 06/05/17 00:00 98 Nasal Cannula 3.00 06/04/17 22:00 158 06/04/17 20:00 167 06/04/17 20:00 98 Nasal Cannula 3.00 06/04/17 20:00 98.5 167 28 92/65 99 06/04/17 19:23 98 Nasal Cannula 3.00 06/04/17 17:00 174 06/04/17 17:00 174 06/04/17 16:45 170 06/04/17 16:30 167 06/04/17 16:15 170 06/04/17 16:00 99 Nasal Cannula 3.00 50 06/04/17 16:00 168 19 115/64 100 06/04/17 16:00 99.1 06/04/17 16:00 168 06/04/17 16:00 168 06/04/17 15:45 156 06/04/17 15:30 155 06/04/17 15:15 177 06/04/17 15:00 172 06/04/17 15:00 172 06/04/17 14:00 174 I/O 06/04/17 06/04/17 06/04/17 06/05/17 06/05/1717 06:59 14:59 22:59 06:59 14:59 22:59 Intake Total 1760 ml 4557 ml 1676 ml 1128 ml Output Total 300 ml 950 ml 350 ml Balance 1760 ml 4257 ml 726 ml 778 ml Intake Oral 60 ml 610 ml 300 ml IV Total 1700 ml 3947 ml 1376 ml 1128 ml Output Urine Total 300 ml 950 ml 350 ml # Voids 1 # Bowel Movements 0 Result Diagram: 06/05/17 1046 06/05/17 1046 Objective Remarks PHYSICAL EXAMINATION GENERAL: This elderly thinly built white male who is alert and somewhat anxious. HEENT: Head normocephalic. Pupils are reactive. Tongue was dry. Throat is injected. NECK: Supple with no venous distension. No thyromegaly. No lymphadenopathy. CHEST: Equal movements with an increased AP diameter with diffuse wheezes throughout both lung perez. Prolonged expirations with occ basal crackles. HEART: Heart sounds are irregularly irregular. S1-S2 and tachycardiac without murmur. ABDOMEN: Soft, slightly bloated, no organomegaly. Bowel sounds are faint. EXTREMITIES: Decreased pulses. No edema and there is no calf tenderness. NEURO: Reflexes are 1+ with no gross motor deficits. Cranial nerves are grossly intact. SKIN: No lesions observed. Assessment and Plan Assessment and Plan IMPRESSION 1. COPD with acute exacerbation. 2. Hypoxemic and hypercapnic respiratory failure. 3. He has atrial fibrillation with rapid ventricular response. 4. Nicotine dependency. Plan : 1. Continue O2 at 3l 2. IV amiodarone/cardizem 3. Solumedrol IV 40 mg q8h 4. Cont Nebstid with duoneb, and hold if HR >100 5. Bipap at HS12/5 CM,FIo2 28% 6. CXR, BMP in am Clay Zarate MD Jun 05, 2017 12:27
[2017-06-05 13:11] LABS: SCAN/DIFF AUTO DIFF CONFIRMED
--- NOTE | 2017-06-05 14:44 | EKG ---
Date Performed: 06/04/2017 Time Performed: 12:25:23 PTAGE: 71 years EKG: ATRIAL FIBRILLATION WITH RAPID VENTRICULAR RESPONSE ABNORMAL RHYTHM ECG PREVIOUS TRACING : 06/03/2017 22.53 Since previous tracing, no significant change noted DOCTOR: Jamal Mosley Interpretating Date/Time 06/05/2017 14:44:06
[2017-06-05] MEDS ORDERED: MAGNESIUM SULFATE INJ 4 GM in SODIUM CHLORIDE 0.9% INJ 92 ML IV PRN (17:15)
[2017-06-05] MEDS ORDERED: MAGNESIUM SULFATE INJ 2 GM in SODIUM CHLORIDE 0.9% INJ 96 ML IV PRN (17:15)
[2017-06-05] MEDS ORDERED: POTASSIUM CHLOR 40 MEQ PREMIX 100 ML IV PRN ×2 (17:15)
[2017-06-05] MEDS ORDERED: MAGNESIUM OXIDE 400 MG TAB PO PRN (17:15)
[2017-06-05] MEDS ORDERED: POTASSIUM PHOSPHATE MONOBASIC 500 MG TAB PO/TUBE PRN (17:15)
[2017-06-05] MEDS ORDERED: POTASSIUM CHLORIDE 25 MEQ EFFERVESCENT TAB PO PRN (17:15)
[2017-06-05] MEDS ORDERED: POTASSIUM PHOSPHATE MONOBASIC 500 MG TAB PO PRN (17:15)
[2017-06-05] MEDS ORDERED: SODIUM PHOSPHATE INJ 30 MMOL in SODIUM CHLOR 0.9% 250 ML INJ 240 ML IV PRN (17:15)
[2017-06-05] MEDS ORDERED: POTASSIUM CHLOR 20 MEQ PREMIX 100 ML IV PRN ×2 (17:15)
[2017-06-05] MEDS ORDERED: POTASSIUM PHOSPHATE INJ 30 MMOL in SODIUM CHLOR 0.9% 250 ML INJ 250 ML IV PRN (17:15)
--- NOTE | 2017-06-05 20:20 | ECHRPT ---
Indication: dyspnea CONCLUSIONS Overall in limited views, grossly normal ejection fraction. There was limited left ventricular wall motion assessment due to poor endocardial visualization. Trace mitral valve regurgitation. There is trace tricuspid valve regurgitation. BP: 106 / 64 HR: 136 Rhythm: Atrial fibrillation MEASUREMENTS (Male / Female) Normal Values Technical Quality:Good 2D ECHO LV Diastolic Diameter PLAX 4.3 cm 4.2 - 5.9 / 3.9 - 5.3 cm LV Systolic Diameter PLAX 3.3 cm IVS Diastolic Thickness 0.9 cm 0.6 - 1.0 / 0.6 - 0.9 cm LVPW Diastolic Thickness 0.7 cm 0.6 - 1.0 / 0.6 - 0.9 cm LV Relative Wall Thickness 0.4 RV Internal Dim ED PLAX 2.0 cm LA Systolic Diameter LX 3.4 cm 3.0 - 4.0 / 2.7 - 3.8 cm M-MODE Aortic Root Diameter MM 2.8 cm AV Cusp Separation MM 2.2 cm DOPPLER Mitral E Point Velocity 92.8 cm/s TR Peak Velocity 248.0 cm/s TR Peak Gradient 24.6 mmHg FINDINGS LEFT VENTRICLE Normal left ventricular size. Wall thickness is normal. Overall in limited views, grossly normal ejection fraction. There was limited left ventricular wall motion assessment due to poor endocardial visualization. RIGHT VENTRICLE The right ventricular size is normal. LEFT ATRIUM The left atrial size is normal. RIGHT ATRIUM The right atrial size is normal. ATRIAL SEPTUM The interatrial septum not well visualized. AORTA The aortic root and proximal ascending aorta are normal in size on limited imaging. MITRAL VALVE Structurally normal mitral valve. Trace mitral valve regurgitation. No mitral valve stenosis. AORTIC VALVE Aortic valve sclerosis is present. No aortic valve regurgitation. No aortic valve stenosis. TRICUSPID VALVE The estimated pulmonary arterial pressure is 35 mmHg. Structurally normal tricuspid valve. There is trace tricuspid valve regurgitation. No tricuspid valve stenosis. PULMONARY VALVE The pulmonary valve is not well visualized. VESSELS The inferior vena cava is normal in size. PERICARDIUM No pericardial effusion. Edgar Forbes DO (Electronically Signed) Final Date:05 June 2017 20:19
[2017-06-05] MEDS: REMOVE OLD NICODERM (NICOTINE) PATCH T-DERMAL SCH (21:00)
[2017-06-05] MEDS: CEFEPIME INJ 1,000 MG in SODIUM CHLORIDE 0.9% INJ 100 ML IV SCH (21:10)
[2017-06-06] VITALS (18 sets, daily range): BP systolic 108–164; BP diastolic 58–73; PULSE 55–81; RESP 18–31; TEMP 98–98.9; O2SAT 95–99
[2017-06-06] MEDS: LEVOFLOXACIN 750 MG PREMIX INJ 150 ML IV SCH (02:18)
[2017-06-06] MEDS: CHLORHEXIDINE GLUCONATE 2 % 1 PACK (2 CLOTHS) TOP SCH (02:18)
--- NOTE | 2017-06-06 04:31 | RADRPT ---
EXAM DATE/TIME: 06/06/2017 03:08 [facility] COMPARISON: CHEST SINGLE AP, June 03, 2017, 23:16. INDICATIONS : Shortness of breath, possible pulmonary disease. MEDICAL HISTORY : None. SURGICAL HISTORY : None. ENCOUNTER: Subsequent ACUITY: 4 - 6 days PAIN SCORE: Non-responsive. LOCATION: Bilateral chest FINDINGS: Bilateral mostly basilar airspace consolidation and small effusions. Heart size mildly enlarged. No p neumothorax. CONCLUSION: 1. Basilar airspace consolidation and small effusions that have developed since June 03. Ron Muller MD on June 06, 2017 at 4:28 Board Certified Radiologist. This report was verified electronically.
[2017-06-06] MEDS: methylPREDNISolone SOD SUCC 125 MG/2 ML VIAL IVP SCH ×3 (05:04→21:07)
[2017-06-06] MEDS: CEFEPIME INJ 1,000 MG in SODIUM CHLORIDE 0.9% INJ 100 ML IV SCH ×3 (05:05→21:08)
[2017-06-06 07:08] LABS: AUTOMATED NEUTROPHIL # 16.5 TH/MM3 (1.8-7.7); BASOPHIL % 0.1 % (0.0-2.0); HEMATOCRIT 36.3 % (39.0-51.0); LYMPH % 2.9 % (9.0-44.0); LYMPHOCYTE # 0.5 TH/MM3 (1.0-4.8); MEAN CELL VOLUME 92.9 FL (80.0-100.0); MEAN CORPUSCULAR HEMOGLOBIN 30.4 PG (27.0-34.0); MEAN CORPUSCULAR HGB CONC 32.7 % (32.0-36.0); MONO % 2.3 % (0.0-8.0); NEUT % 94.7 % (16.0-70.0); PLATELET COUNT 287 TH/MM3 (150-450); RED BLOOD COUNT 3.91 MIL/MM3 (4.50-5.90); RED CELL DISTRIBUTION WIDTH 14.3 % (11.6-17.2); WHITE BLOOD COUNT 17.5 TH/MM3 (4.0-11.0)
[2017-06-06 07:12] LABS: PROTHROMBIN TIME - PATIENT 11.5 SEC (9.8-11.6)
[2017-06-06 07:13] LABS: HEMO FLAGS AUTO DIFF
[2017-06-06 07:19] LABS: ALT (GPT) 23 U/L (12-78); ANION GAP 6 MEQ/L (5-15); AST (GOT) 26 U/L (15-37); BICARBONATE 25.8 MEQ/L (21.0-32.0); BLOOD UREA NITROGEN 25 MG/DL (7-18); CHLORIDE 111 MEQ/L (98-107); GLOMERULAR FILTRATION RATE 94 ML/MIN (>89); MAGNESIUM 2.5 MG/DL (1.5-2.5); POTASSIUM 4.2 MEQ/L (3.5-5.1); SODIUM (NA) 143 MEQ/L (136-145)
[2017-06-06 07:21] LABS: ALKALINE PHOSPHATASE 46 U/L (45-117); TOTAL BILIRUBIN ADULT 0.2 MG/DL (0.2-1.0)
[2017-06-06] MEDS: RESP: ALBUTEROL 2.5 MG/IPRATROPIUM 0.5 MG NEB (SCH) INH ×2 (07:38→15:04)
[2017-06-06 08:03] LABS: BANDS 3 % (0-6); MYELOCYTES 1 % (0-0); NEUTROPHIL # MANUAL DIFF 15.2 TH/MM3 (1.8-7.7); POLYS (SEG NEUTROPHILS) 83 % (16-70); WBC DIFF SAMPLE 100
[2017-06-06 08:04] LABS: HYPERSEGMENTED POLYS 1+ (NORMAL); PLATELET ESTIMATE SMEAR NORMAL (NORMAL); PLATELET MORPHOLOGY NORMAL (NORMAL); SCAN/DIFF FINAL DIFF MANUAL
--- NOTE | 2017-06-06 08:12 | HHI.PR ---
Subjective Remarks This is a 71-year-old gentleman with a history of tobacco use, unknown past medical history, who presents today VIA EMS with cough and shortness of breath. The patient states that he's been in bed since Thursday. He states he's been weak and short of breath since then. When paramedics arrived they found his O2 sat to be 82. He is placed on 100% nonrebreather which brought up to 99% . He also reports low-grade fevers. The patient felt better with the O2. He has not seen a doctor since 2007. He says at that time he had no medical issues. He does smoke half pack of cigarettes had previously been up to 2 packs a day. Then down to one pack and then now to half pack a day. And states he drinks one to 2 beers per day. Is not currently taking any medication. His is been wanting him to come to the hospital since last week 06-04 events last night noted Transferred to ICU on a Cardizem drip Still short of breath Nurse's alerting me that he actually drinks much more alcohol than he states will need CIWA protocol Discussed with patient RN and family On BiPAP still short of breath Consult cardiology Consult pulmonary 06-05 patient has rodney due to urinary retention seen by cardiology dr pierce- on amiodarone and Cardizem drip Medications have been adjusted by pulmonary. May need PRISCA and cardioversion later today Discussed with RN and patient and patient's family Wear BiPAP at rest or when sleeping am labs 06-06 Converted out of Afib yesterday can move out of the ICU still very sob no chest pain no nausea, no vomiting, no fevers, no chest pain ok out of icu dw rns and patient Objective Vitals Vital Signs Date Time Temp Pulse Resp B/P Pulse Ox O2 Delivery O2 Flow Rate FiO2 06/06/17 07:38 99 Nasal Cannula 2.00 06/06/17 06:00 65 06/06/17 04:02 99 30 06/06/17 04:00 99 Bi-Pap 35 06/06/17 04:00 65 06/06/17 04:00 98.8 65 22 116/58 99 06/06/17 02:00 56 06/06/17 00:00 55 06/06/17 00:00 97 Bi-Pap 35 06/06/17 00:00 98.5 55 20 108/59 95 06/05/17 23:15 96 30 06/05/17 23:07 99 Nasal Cannula 3.00 06/05/17 22:00 59 06/05/17 20:00 57 06/05/17 20:00 99 Nasal Cannula 3.00 06/05/17 20:00 97.7 57 19 108/55 100 06/05/17 18:00 78 06/05/17 17:00 101/61 06/05/17 16:00 Nasal Cannula 3.00 35 06/05/17 16:00 97.3 06/05/17 16:00 124 06/05/17 16:00 124 29 100/68 98 06/05/17 15:00 109 06/05/17 14:00 117 06/05/17 13:00 107 28 102/71 97 06/05/17 13:00 107 06/05/17 12:00 97.8 06/05/17 12:00 88 20 98/54 99 06/05/17 12:00 88 06/05/17 12:00 Nasal Cannula 3.00 35 06/05/17 11:00 89 21 101/56 97 06/05/17 11:00 89 06/05/17 10:00 132 06/05/17 10:00 132 21 95/59 89 06/05/17 09:00 143 33 103/64 94 06/05/17 08:00 Nasal Cannula 3.00 35 06/05/17 08:00 98.2 06/05/17 08:00 163 25 115/71 100 I/O 06/05/17 06/05/17 06/05/17 06/06/17 06/06/17 06/06/17 06:59 14:59 22:59 06:59 14:59 22:59 Intake Total 1128 ml 1725 ml 1655 ml 1294 ml Output Total 350 ml 350 ml 400 ml 500 ml Balance 778 ml 1375 ml 1255 ml 794 ml Intake Oral 480 ml 300 ml 100 ml IV Total 1128 ml 1245 ml 1355 ml 1194 ml Output Urine Total 350 ml 350 ml 400 ml 500 ml # Voids 0 # Bowel Movements 0 Result Diagram: 06/06/17 0635 06/06/17 0635 Other Results Laboratory Tests Test 06/03/17 06/03/17 06/03/17 06/03/17 09:45 15:25 19:25 22:00 White Blood Count 20.0 TH/MM3 Red Blood Count 4.80 MIL/MM3 Hemoglobin 14.4 GM/DL Hematocrit 44.3 % Mean Corpuscular Volume 92.3 FL Mean Corpuscular Hemoglobin 29.9 PG Mean Corpuscular Hemoglobin 32.4 % Concent Red Cell Distribution Width 14.4 % Platelet Count 292 TH/MM3 Mean Platelet Volume 10.7 FL Neutrophils (%) (Auto) 87.1 % Lymphocytes (%) (Auto) 3.7 % Monocytes (%) (Auto) 8.9 % Eosinophils (%) (Auto) 0.0 % Basophils (%) (Auto) 0.3 % Neutrophils # (Auto) 17.4 TH/MM3 Lymphocytes # (Auto) 0.7 TH/MM3 Monocytes # (Auto) 1.8 TH/MM3 Eosinophils # (Auto) 0.0 TH/MM3 Basophils # (Auto) 0.1 TH/MM3 CBC Comment AUTO DIFF Differential Comment AUTO DIFF CONFIRMED Platelet Estimate NORMAL Platelet Morphology Comment NORMAL Blood Gas Puncture Site RT RADIAL Blood Gas Patient Temperature 98.6 Blood Gas HCO3 29 mmol/L Blood Gas Base Excess 3.4 mmol/L Blood Gas Oxygen Saturation 95 % Arterial Blood pH 7.36 Arterial Blood Partial 52 mmHg Pressure CO2 Arterial Blood Partial 93 mmHg Pressure O2 Arterial Blood Oxygen Content 19.2 Vol % Arterial Blood 1.6 % Carboxyhemoglobin Arterial Blood Methemoglobin 0.8 % Blood Gas Hemoglobin 14.4 G/DL Oxygen Delivery Device NASAL CANNULA Blood Gas Liter Flow 4 L/M Sodium Level 138 MEQ/L Potassium Level 4.7 MEQ/L Chloride Level 100 MEQ/L Carbon Dioxide Level 29.5 MEQ/L Anion Gap 9 MEQ/L Blood Urea Nitrogen 33 MG/DL Creatinine 1.16 MG/DL Estimat Glomerular Filtration 62 ML/MIN Rate Random Glucose 126 MG/DL Lactic Acid Level 1.6 mmol/L Calcium Level 9.7 MG/DL Total Bilirubin 0.8 MG/DL Aspartate Amino Transf 29 U/L (AST/SGOT) Alanine Aminotransferase 27 U/L (ALT/SGPT) Alkaline Phosphatase 78 U/L Total Creatine Kinase 59 U/L 42 U/L 113 U/L Troponin I LESS THAN 0.02 LESS THAN 0.02 LESS THAN 0.02 NG/ML NG/ML NG/ML Total Protein 8.2 GM/DL Albumin 3.0 GM/DL Urine Color YELLOW Urine Turbidity HAZY Urine pH 5.5 Urine Specific [place] 1.021 Urine Protein 30 mg/dL Urine Glucose (UA) NEG mg/dL Urine Ketones NEG mg/dL Urine Occult Blood NEG Urine Nitrite NEG Urine Bilirubin NEG Urine Urobilinogen LESS THAN 2.0 MG/DL Urine Leukocyte Esterase NEG Urine RBC 4 /hpf Urine WBC 10 /hpf Urine Squamous Epithelial 2 /hpf Cells Urine Transitional Epithelial 1 /hpf Cells Urine Renal Epithelial Cells <1 /hpf Urine Amorphous Sediment RARE Urine Bacteria RARE /hpf Urine Hyaline Casts 95 /lpf Urine Mucus FEW /lpf Microscopic Urinalysis Comment CATH-CULTURE IND Test 06/03/17 06/03/17 06/04/17 06/04/17 22:55 23:50 01:00 04:22 Blood Gas Puncture Site LT RADIAL Blood Gas Patient Temperature 98.6 Blood Gas HCO3 26 mmol/L Blood Gas Base Excess 0.4 mmol/L Blood Gas Oxygen Saturation 96 % Arterial Blood pH 7.30 Arterial Blood Partial 55 mmHg Pressure CO2 Arterial Blood Partial 99 mmHg Pressure O2 Arterial Blood Oxygen Content 20.1 Vol % Arterial Blood 1.0 % Carboxyhemoglobin Arterial Blood Methemoglobin 0.8 % Blood Gas Hemoglobin 14.9 G/DL Oxygen Delivery Device NASAL CANNULA Blood Gas Liter Flow 4 L/M White Blood Count 14.3 TH/MM3 12.4 TH/MM3 Red Blood Count 4.34 MIL/MM3 4.06 MIL/MM3 Hemoglobin 13.1 GM/DL 12.4 GM/DL Hematocrit 40.4 % 38.1 % Mean Corpuscular Volume 93.2 FL 93.9 FL Mean Corpuscular Hemoglobin 30.2 PG 30.5 PG Mean Corpuscular Hemoglobin 32.5 % 32.5 % Concent Red Cell Distribution Width 14.3 % 14.0 % Platelet Count 260 TH/MM3 248 TH/MM3 Mean Platelet Volume 10.1 FL 10.3 FL Neutrophils (%) (Auto) 96.2 % 93.6 % Lymphocytes (%) (Auto) 2.3 % 3.7 % Monocytes (%) (Auto) 1.4 % 2.5 % Eosinophils (%) (Auto) 0.0 % 0.0 % Basophils (%) (Auto) 0.1 % 0.2 % Neutrophils # (Auto) 13.8 TH/MM3 11.6 TH/MM3 Lymphocytes # (Auto) 0.3 TH/MM3 0.5 TH/MM3 Monocytes # (Auto) 0.2 TH/MM3 0.3 TH/MM3 Eosinophils # (Auto) 0.0 TH/MM3 0.0 TH/MM3 Basophils # (Auto) 0.0 TH/MM3 0.0 TH/MM3 CBC Comment DIFF FINAL DIFF FINAL Differential Comment D-Dimer Quantitative (PE/DVT) 1.51 MG/L FEU Sodium Level 137 MEQ/L 138 MEQ/L Potassium Level 4.2 MEQ/L 4.3 MEQ/L Chloride Level 101 MEQ/L 103 MEQ/L Carbon Dioxide Level 27.5 MEQ/L 28.9 MEQ/L Anion Gap 9 MEQ/L 6 MEQ/L Blood Urea Nitrogen 41 MG/DL 39 MG/DL Creatinine 1.08 MG/DL 0.92 MG/DL Estimat Glomerular Filtration 68 ML/MIN 82 ML/MIN Rate Random Glucose 245 MG/DL 164 MG/DL Calcium Level 8.5 MG/DL 8.2 MG/DL Magnesium Level 2.6 MG/DL Total Bilirubin 0.4 MG/DL 0.3 MG/DL Aspartate Amino Transf 19 U/L 18 U/L (AST/SGOT) Alanine Aminotransferase 23 U/L 23 U/L (ALT/SGPT) Alkaline Phosphatase 73 U/L 65 U/L Troponin I LESS THAN 0.02 NG/ML B-Type Natriuretic Peptide 118 PG/ML Total Protein 7.2 GM/DL 6.7 GM/DL Albumin 2.5 GM/DL 2.3 GM/DL Nasal Screen MRSA (PCR) MRSA NOT DETECTED Triglycerides Level 61 MG/DL Cholesterol Level 106 MG/DL LDL Cholesterol 42 MG/DL HDL Cholesterol 52.2 MG/DL Cholesterol/HDL Ratio 2.03 RATIO Test 06/05/17 06/06/17 10:46 06:35 White Blood Count 21.2 TH/MM3 17.5 TH/MM3 Red Blood Count 3.95 MIL/MM3 3.91 MIL/MM3 Hemoglobin 11.8 GM/DL 11.9 GM/DL Hematocrit 36.9 % 36.3 % Mean Corpuscular Volume 93.4 FL 92.9 FL Mean Corpuscular Hemoglobin 29.9 PG 30.4 PG Mean Corpuscular Hemoglobin 32.0 % 32.7 % Concent Red Cell Distribution Width 14.6 % 14.3 % Platelet Count 280 TH/MM3 287 TH/MM3 Mean Platelet Volume 10.4 FL 10.1 FL Neutrophils (%) (Auto) 94.7 % 94.7 % Lymphocytes (%) (Auto) 2.2 % 2.9 % Monocytes (%) (Auto) 3.0 % 2.3 % Eosinophils (%) (Auto) 0.0 % 0.0 % Basophils (%) (Auto) 0.1 % 0.1 % Neutrophils # (Auto) 20.1 TH/MM3 16.5 TH/MM3 Lymphocytes # (Auto) 0.5 TH/MM3 0.5 TH/MM3 Monocytes # (Auto) 0.6 TH/MM3 0.4 TH/MM3 Eosinophils # (Auto) 0.0 TH/MM3 0.0 TH/MM3 Basophils # (Auto) 0.0 TH/MM3 0.0 TH/MM3 CBC Comment AUTO DIFF AUTO DIFF Differential Comment AUTO DIFF CONFIRMED Sodium Level 141 MEQ/L 143 MEQ/L Potassium Level 4.0 MEQ/L 4.2 MEQ/L Chloride Level 110 MEQ/L 111 MEQ/L Carbon Dioxide Level 26.6 MEQ/L 25.8 MEQ/L Anion Gap 4 MEQ/L 6 MEQ/L Blood Urea Nitrogen 28 MG/DL 25 MG/DL Creatinine 0.76 MG/DL 0.81 MG/DL Estimat Glomerular Filtration 102 ML/MIN 94 ML/MIN Rate Random Glucose 186 MG/DL 159 MG/DL Calcium Level 7.9 MG/DL 8.2 MG/DL Phosphorus Level 2.4 MG/DL 2.9 MG/DL Magnesium Level 2.5 MG/DL 2.5 MG/DL Total Bilirubin 0.2 MG/DL 0.2 MG/DL Aspartate Amino Transf 29 U/L 26 U/L (AST/SGOT) Alanine Aminotransferase 25 U/L 23 U/L (ALT/SGPT) Alkaline Phosphatase 53 U/L 46 U/L Total Protein 6.2 GM/DL 6.0 GM/DL Albumin 2.2 GM/DL 2.1 GM/DL Prothrombin Time 11.5 SEC Prothromb Time International 1.0 RATIO Ratio Imaging Last Impressions Chest X-Ray 06/06/17 0600 Signed Impressions: Service Date/Time: Tuesday, June 06, 2017 03:08 - CONCLUSION: 1. Basilar airspace consolidation and small effusions that have developed since June 03. Ron Pierce MD Chest CT 06/04/[id number] Signed Impressions: Service Date/Time: May 21:53 - CONCLUSION: 1. Moderate to severe emphysema near the lung apices. 2. Dependent consolidation and the lines with possible bronchopneumonia left lower lobe. Small bilateral effusions. 3. Moderate to severe coronary calcifications. No adenopathy. Ron Pierce MD Objective Remarks GENERAL: This is a well-nourished, well-developed patient, in mild to moderate distress appears to have some wasting in his chest area SKIN: No rashes, ecchymoses or lesions. Cool and dry. HEAD: Atraumatic. Normocephalic. No temporal or scalp tenderness. EYES: Pupils equal round and reactive. Extraocular motions intact. No scleral icterus. No injection or drainage. ENT: Nose without bleeding, purulent drainage or septal hematoma. Throat without erythema, tonsillar hypertrophy or exudate. Uvula midline. Airway patent. Tongue is midline NECK: Trachea midline. No JVD or lymphadenopathy. Supple, nontender, no meningeal signs. CARDIOVASCULAR: Regular rate and rhythm without murmurs, gallops, or rubs. S1- S2 no S3 or S4 no heave no thrill RESPIRATORY: Coarse breath sounds. Breath sounds equal bilaterally. Rhonchi and wheezes throughout GASTROINTESTINAL: Abdomen soft, non-tender, nondistended. No hepato-splenomegaly , or palpable masses. No guarding. MUSCULOSKELETAL: Extremities without clubbing, cyanosis, or edema. No joint tenderness, effusion, or edema noted. No calf tenderness. Negative Homans sign bilaterally. NEUROLOGICAL: Awake and alert. Cranial nerves II through XII intact. Motor and sensory grossly within normal limits. Five out of 5 muscle strength in all muscle groups. Normal speech. Insight and judgment limited at this time Rodney catheter in place mood and behaviors appropriate Medications and IVs Current Medications Ceftriaxone Sodium 2000 mg/ Sodium Chloride 100 ml @ 200 mls/hr ONCE STAT IV Last administered on 06/03/17 12:47; Start 06/03/17 at 11:38; Stop 06/03/17 at 12:07; Status DC Azithromycin 500 mg/Sodium Chloride 250 ml @ 250 mls/hr ONCE STAT IV Last administered on 06/03/17 13:35; Start 06/03/17 at 11:38; Stop 06/03/17 at 12:37 ; Status DC Sodium Chloride 1,000 ml @ 125 mls/hr Q8H IV Last administered on 06/03/17 12 :48; Start 06/03/17 at 12:30; Stop 06/03/17 at 14:42; Status DC Sodium Chloride (NS 1000 ml Inj) 1,000 ml @ 75 mls/hr [id number] IV Last administered on 06/04/17 05:16; Start 06/03/17 at 15:00; Stop 06/04/17 at 19:12 ; Status DC Sodium Chloride (NS Flush) 2 ml BID IV FLUSH ; Start 06/03/17 at 21:00; Status UNV Sodium Chloride (NS Flush) 2 ml UNSCH PRN IV FLUSH FLUSH AFTER USING IV ACCESS ; Start 06/03/17 at 13:15; Status UNV Albuterol/ Ipratropium (Duoneb Neb) 1 ampule Q4HR NEB INH Last administered on 06/04/17 15:47; Start 06/03/17 at 16:00; Stop 06/04/17 at 18:10; Status DC Albuterol Sulfate (Albuterol Neb) 2.5 mg Q2HR NEB PRN INH SHORTNESS OF BREATH; Start 06/03/17 at 13:15 Budesonide/ Formoterol Fumarate (Symbicort 160-4.5 Inh) 2 puff Q12HR INH Last administered on 06/04/17 11:51; Start 06/03/17 at 21:00; Stop 06/04/17 at 18:23 ; Status DC Methylprednisolone Sodium Succinate 60 mg 60 mg Q6H IVP Last administered on 15:25; Start 06/03/17 at 15:00; Stop 06/04/17 at 18:11; Status DC Ceftriaxone Sodium/Sodium Chloride (Rocephin Inj/NS Inj) 100 ml @ 200 mls/hr Q24H IV ; Start 06/04/17 at 12:00; Stop 06/04/17 at 12:00; Status DC Nicotine 1 patch 1 patch DAILY TD Last administered on 06/05/17 08:43; Start 06/03/17 at 15:00 Azithromycin/ Sodium Chloride (Zithromax Inj/ NS 250 ml Inj) 250 ml @ 250 mls/ hr Q24H IV ; Start 06/04/17 at 14:00; Stop 06/04/17 at 14:00; Status DC Enoxaparin Sodium (Lovenox Inj) 40 mg Q24H SQ Last administered on 06/03/17 15 :42; Start 06/03/17 at 15:00; Stop 06/04/17 at 08:36; Status DC Sodium Chloride (NS Flush) 2 ml UNSCH PRN IV FLUSH FLUSH AFTER USING IV ACCESS ; Start 06/03/17 at 13:15 Sodium Chloride (NS Flush) 2 ml BID IV FLUSH Last administered on 06/05/17 21: 14; Start 06/03/17 at 21:00 Acetaminophen (Tylenol) 650 mg Q4H PRN PO TEMP > 100.4; Start 06/03/17 at 13:15 Ondansetron HCl (Zofran Inj) 4 mg Q6H PRN IVP NAUSEA OR VOMITING; Start at 13:15 Prochlorperazine (Compazine Supp) 25 mg Q12H PRN RECTAL NAUSEA OR VOMITING; Start 06/03/17 at 13:15 Acetaminophen (Tylenol) 650 mg Q6H PRN PO PAIN SCALE 1 TO 2; Start 06/03/17 at 13:15 Oxycodone/ Acetaminophen (Percocet 5-325 Mg) 1 tab Q6H PRN PO PAIN SCALE 3 TO 5; Start 06/03/17 at 13:15 Oxycodone/ Acetaminophen (Percocet 10-325 Mg) 1 tab Q6H PRN PO PAIN SCALE 6 TO 10; Start 06/03/17 at 13:15 Morphine Sulfate (Morphine Inj) 2 mg Q3H PRN IV Pain 3-5; if unable to take PO ; Start 06/03/17 at 13:15 Morphine Sulfate (Morphine Inj) 4 mg Q3H PRN IV Pain 6-10;if unable to take PO ; Start 06/03/17 at 13:15 Morphine Sulfate (Morphine Inj) 4 mg Q3H PRN IV BREAKTHROUGH PAIN; Start at 13:15 Naloxone HCl (Narcan Inj) 0.4 mg UNSCH PRN IV SEE LABEL COMMENTS; Start at 13:15 Senna/Docusate Sodium (Roxanna-Colace) 1 tab BID PO Last administered on 21:13; Start 06/03/17 at 21:00 Magnesium Hydroxide (Milk Of Magnesia Liq) 30 ml Q12H PRN PO MILD - MODERATE CONSTIPATION; Start 06/03/17 at 13:15 Sennosides (Senokot) 17.2 mg Q12H PRN PO MODERATE - SEVERE CONSTIPATION; Start 06/03/17 at 13:15 Bisacodyl (Dulcolax Supp) 10 mg DAILY PRN RECTAL SEVERE CONSITIPATION; Start at 13:15 Lactulose (Lactulose Liq) 30 ml DAILY PRN PO SEVERE CONSITIPATION; Start at 13:15 Sodium Chloride (NS Flush) 2 ml UNSCH PRN IV FLUSH FLUSH AFTER USING IV ACCESS ; Start 06/03/17 at 13:15; Status UNV Sodium Chloride (NS Flush) 2 ml BID IV FLUSH ; Start 06/03/17 at 21:00; Status UNV Magnesium Oxide (Mag-Ox) 400 mg BID PO Last administered on 06/05/17 21:10; Start 06/03/17 at 21:00 Guaifenesin (Mucinex Er) 600 mg BID PO Last administered on 06/05/17 21:10; Start 06/03/17 at 14:45 Pantoprazole Sodium (Protonix) 40 mg DAILY PO Last administered on 06/05/17 08 :42; Start 06/03/17 at 14:45 Miscellaneous Information 1 HS T-DERMAL Last administered on 06/05/17 21:00; Start 06/03/17 at 21:00 Pneumococcal Polyvalent Vaccine (Pneumovax-23 Inj) 25 mcg ONCE ONCE IM ; Start 06/04/17 at 09:00; Stop 06/04/17 at 09:01; Status DC Diltiazem HCl 20 mg 20 mg ONCE ONCE IVP Last administered on 06/03/17 23:15; Start 06/03/17 at 23:00; Stop 06/03/17 at 23:07; Status DC Diltiazem HCl/ Sodium Chloride (Cardizem Inj/NS Inj) 125 ml @ 0 mls/hr TITRATE IV Last administered on 06/05/17 09:55; Start 06/03/17 at 23:00 Adenosine (Adenocard Inj) 6 mg ONCE ONCE IV PUSH Last administered on 23:33; Start 06/03/17 at 23:30; Stop 06/03/17 at 23:31; Status DC Adenosine (Adenocard Inj) 6 mg ONCE ONCE IV PUSH ; Start 06/03/17 at 23:30; Stop 06/03/17 at 23:31; Status DC Adenosine 12 mg 12 mg ONCE ONCE IV PUSH Last administered on 06/03/17 23:38; Start 06/03/17 at 23:30; Stop 06/03/17 at 23:31; Status DC Sodium Chloride (NS 500 ml Inj) 500 ml @ 500 mls/hr BOLUS ONCE IV Last administered on 06/04/17 01:53; Start 06/04/17 at 01:15; Stop 06/04/17 at 02:14 ; Status DC Enoxaparin Sodium 70 mg 70 mg ONCE ONCE SQ Last administered on 06/04/17 01: 55; Start 06/04/17 at 01:15; Stop 06/04/17 at 01:16; Status DC Levofloxacin/ Dextrose (Levaquin 750 Mg Premix Inj) 150 ml @ 100 mls/hr Q24H IV Last administered on 06/06/17 02:18; Start 06/04/17 at 02:00 Miscellaneous Information 1 [id number] Last administered on 06/04/17 01:45; Start 06/04/17 at 01:45 Chlorhexidine Gluconate (Chlorhexidine 2% Cloth) 3 pack Taper DAILY@04 TOP Last administered on 06/06/17 02:18; Start 06/04/17 at 04:00; Stop 05/31/18 at 03:59 Chlorhexidine Gluconate 3 pack 3 pack UNSCH PRN TOP HYGIENIC CARE; Start at 01:45 Sodium Chloride (NS 1000 ml Inj) 1,000 ml @ 999 mls/hr BOLUS ONCE IV Last administered on 06/04/17 05:12; Start 06/04/17 at 05:00; Stop 06/04/17 at 06:00 ; Status DC Flumazenil (Romazicon Inj) 0.2 mg Q1M PRN IV PUSH SEE LABEL COMMENTS; Start at 08:30 Lorazepam (Ativan) 1 mg Q4H PRN PO CIWA 8 - 10; Start 06/04/17 at 08:30 Lorazepam (Ativan Inj) 1 mg Q4H PRN IV PUSH CIWA 8 - 10; Start 06/04/17 at 08: 30 Lorazepam (Ativan) 2 mg Q2H PRN PO CIWA 11-14; Start 06/04/17 at 08:30 Lorazepam (Ativan Inj) 2 mg Q2H PRN IV PUSH CIWA 11-14; Start 06/04/17 at 08:30 Lorazepam (Ativan Inj) 2 mg Q1H PRN IV PUSH CIWA 15-20; Start 06/04/17 at 08:30 Lorazepam (Ativan Inj) 2 mg Q15M PRN IV PUSH CIWA > 20; Start 06/04/17 at 08:30 Flumazenil (Romazicon Inj) 0.2 mg Q1M PRN IV PUSH SEE LABEL COMMENTS; Start at 08:30; Status UNV Haloperidol Lactate (Haldol Inj) 2 mg Q15M PRN IM SEE LABEL COMMENTS; Start at 08:30 Sodium Chloride (NS Flush) 2 ml UNSCH PRN IV FLUSH FLUSH AFTER USING IV ACCESS ; Start 06/04/17 at 08:30; Status Cancel Sodium Chloride (NS Flush) 2 ml BID IV FLUSH ; Start 06/04/17 at 09:00; Status Cancel Folic Acid (Folate) 1 mg DAILY PO Last administered on 06/05/17 08:41; Start 06/04/17 at 09:00; Stop 06/09/17 at 08:59 Thiamine HCl (Vitamin B1) 100 mg DAILY PO Last administered on 06/05/17 08:41 ; Start 06/04/17 at 09:00 Multivitamins/ Minerals Therapeutic (Theragran M Tab) 1 tab DAILY PO Last administered on 06/05/17 08:41; Start 06/04/17 at 09:00; Stop 06/09/17 at 08:59 Ondansetron HCl (Zofran Inj) 4 mg Q6H PRN IV NAUSEA OR VOMITING; Start at 08:30; Status UNV Pantoprazole Sodium (Protonix) 40 mg DAILY PO ; Start 06/04/17 at 09:00; Status UNV Clonidine (Catapres) 0.1 mg Q6H PRN PO SEE LABEL COMMENTS; Start 06/04/17 at 08 :30; Stop 06/05/17 at 08:41; Status DC Enoxaparin Sodium 70 mg 70 mg Q12H SQ Last administered on 06/05/17 21:11; Start 06/04/17 at 10:00 Sodium Chloride 1,000 ml @ 999 mls/hr BOLUS ONCE IV Last administered on 06/04 13:13; Start 06/04/17 at 10:45; Stop 06/04/17 at 11:45; Status DC Sodium Chloride 1,000 ml @ 125 mls/hr Q8H IV Last administered on 06/05/17 22 :02; Start 06/04/17 at 10:45 Amiodarone HCl/ Dextrose (Cordarone Inj/ D5W 100 ml Inj) 100 ml @ 400 mls/hr NOW ONCE IV Last administered on 06/04/17 15:11; Start 06/04/17 at 15:00; Stop 06/04/17 at 15:14; Status DC Albuterol/ Ipratropium (Duoneb Neb) 1 ampule Q8HR NEB INH Last administered on 06/06/17 07:38; Start 06/05/17 at 00:00 Methylprednisolone Sodium Succinate (SoluMEDROL INJ) 40 mg Q6HR IVP Last administered on 06/05/17 05:50; Start 06/05/17 at 00:00; Stop 06/05/17 at 12:20 ; Status DC Budesonide/ Formoterol Fumarate 1 puff 1 puff Q12HR INH Last administered on 21:00; Start 06/04/17 at 21:00 Amiodarone HCl/ Dextrose (Cordarone Inj/ D5W ([place]) Inj) 250 ml @ 0 mls/hr CONTINUOUS IV Last administered on 06/05/17 04:02; Start 06/04/17 at 18:30 Metoprolol Tartrate (Lopressor Inj) 5 mg STK-MED ONCE .ROUTE Last administered on 06/05/17 08:44; Start 06/05/17 at 08:31; Stop 06/05/17 at 08:32; Status DC Metoprolol Tartrate (Lopressor) 50 mg Q12HR PO Last administered on 06/05/17 09:01; Start 06/05/17 at 09:00 Methylprednisolone Sodium Succinate 40 mg 40 mg Q8HR IVP Last administered on t 05:04; Start 06/05/17 at 14:00 Potassium Chloride 100 ml @ 50 mls/hr Q2H PRN IV For Potassium 2.8 - 3.2 mEq/L ; Start 06/05/17 at 17:15 Potassium Chloride (KCl 20 Meq Premix Inj) 100 ml @ 50 mls/hr Q2H PRN IV For Potassium 2.8 - 3.2 mEq/L; Start 06/05/17 at 17:15 Potassium Bicarb/ Potassium Chloride 50 meq 50 meq UNSCH PRN PO For Potassium 3.3 - 3.5 mEq/L; Start 06/05/17 at 17:15 Potassium Chloride 100 ml @ 25 mls/hr UNSCH PRN IV For Potassium 3.3 - 3.5 mEq /L; Start 06/05/17 at 17:15 Potassium Chloride 100 ml @ 50 mls/hr Q2H PRN IV For Potassium 3.3 - 3.5 mEq/L ; Start 06/05/17 at 17:15 Magnesium Sulfate/ Sodium Chloride (Magnesium Sulfate Inj/NS Inj) 100 ml @ 50 mls/hr UNSCH PRN IV For Magnesium 0.9 - 1.1 mg/dL; Start 06/05/17 at 17:15 Magnesium Oxide 800 mg 800 mg UNSCH PRN PO For Magnesium 1.2 - 1.6 mg/dL; Start 06/05/17 at 17:15 Magnesium Sulfate/ Sodium Chloride (Magnesium Sulfate Inj/NS Inj) 100 ml @ 50 mls/hr UNSCH PRN IV For Magnesium 1.2 - 1.6 mg/dL; Start 06/05/17 at 17:15 Potassium Phosphate 2000 mg 2,000 mg Q4H PRN PO For Phosphorus < 2.5 mg/dL; Start 06/05/17 at 17:15 Sodium Phosphate/ Sodium Chloride (Sodium Phosphate Inj/NS 250 ml Inj) 250 ml @ 42 mls/hr UNSCH PRN IV For Phosphorus < 2.5 mg/dL Last administered on t 17:53; Start 06/05/17 at 17:15 Potassium Phosphate 2000 mg 2,000 mg UNSCH PRN PO/TUBE SEE LABEL COMMENTS; Start 06/05/17 at 17:15 Potassium Phosphate 30 mmol/ Sodium Chloride 260 ml @ 42 mls/hr UNSCH PRN IV SEE LABEL COMMENTS; Start 06/05/17 at 17:15 Cefepime HCl/ Sodium Chloride (Maxipime Inj/NS Inj) 100 ml @ 200 mls/hr Q8H IV Last administered on 06/06/17t 05:05; Start 06/05/17 at 21:00 Urinary Catheter: Yes Assessment to: Continue Rodney insert reason: Obstruction/Retention Vascular Central Line Catheter: No A/P Problem List: (1) Hypoxemia ICD Code: R09.02 Status: Acute (2) Tobacco abuse ICD Code: Z72.0 Status: Acute (3) Sepsis ICD Code: A41.9 Status: Acute (4) COPD (chronic obstructive pulmonary disease) ICD Code: J44.9 Status: Acute (5) Pneumonia ICD Code: J18.9 Status: Acute (6) COPD exacerbation ICD Code: J44.1 Status: Acute (7) Atrial fibrillation ICD Code: I48.91 Status: Acute Assessment and Plan Pneumonia continue on incentive spirometry continue on Mucinex continue on DuoNeb's continue on Zithromax and Rocephin on oxygen with incentive spirometry and Mucinex COPD exacerbation NicoDerm patch. Solu-Medrol CONSULT PULMONARY--veins on BiPAP when trying to sleep desats when sleeping BPH START FLOMAX Tobacco abuse smoking cessation recommended NicoDerm patch Sepsis aggressive fluid rehydration and antibiotics treatment Chronic alcohol use CIWA AFIB- ON CARDIZEM DRIP and amiodarone drip- IN ICU- WAS GIVEN ADENOSINE- on metoprolol 50mg bid NEEDS ECHO AND CARDIOLOGY CONSULT-- had Echo- seen by [facility] LOVENOX 70MG SUBQ BID ALCOHOL ABUSE- CIWA PROTOCOLS- less withdrawals Continued DVT and GI prophylaxis Discharge Planning [facility] [place] Shekhar Subramanian DO Jun 06, 2017 08:12
[2017-06-06] MEDS: NICOTINE 21 MG/24 HR PATCH TD SCH (08:22)
[2017-06-06] MEDS: guaiFENesin E.R. 600 MG TAB PO SCH ×2 (08:22→21:08)
[2017-06-06] MEDS: DOCUSATE SODIUM 50 MG/SENNA 8.6 MG TAB PO SCH ×2 (08:22→21:08)
[2017-06-06] MEDS: METOPROLOL TARTRATE 50 MG TAB PO SCH ×2 (08:22→21:08)
[2017-06-06] MEDS: PANTOPRAZOLE SOD 40 MG DELAYED RELEASE TAB PO SCH (08:22)
[2017-06-06] MEDS: MULTIVITAMINS/MINERALS THERAPEUTIC TAB PO SCH (08:22)
[2017-06-06] MEDS: THIAMINE HCL 100 MG TAB PO SCH (08:22)
[2017-06-06] MEDS: MAGNESIUM OXIDE 400 MG TAB PO SCH ×2 (08:23→21:08)
[2017-06-06] MEDS: SODIUM CHLORIDE 0.9% FLUSH 10 ML FLUSH IV FLUSH SCH ×2 (08:23→21:00)
[2017-06-06] MEDS: ENOXAPARIN SODIUM 80 MG/0.8 ML SYRINGE SQ SCH ×2 (08:23→21:08)
[2017-06-06] MEDS: FOLIC ACID 1 MG TAB PO SCH (08:23)
[2017-06-06] MEDS: BUDESONIDE-FORMOTEROL 160/4.5 MCG INHALER INH SCH ×2 (08:24→21:00)
[2017-06-06] MEDS: TAMSULOSIN HCL 0.4 MG CAP PO SCH ×2 (08:51→21:09)
--- NOTE | 2017-06-06 10:49 | PD.CARD.PN ---
Subjective Subjective Remarks No complaints, rhythm appears sinus but bad baseline, ekg pending Objective Medications Administered Medications Medications (Trade) Dose Ordered Sig/Sangeeta Route PRN Reason Start Time Stop Time Status Last Admin Dose Admin Nicotine (Habitrol 21 Mg Patch.24 Hr) 1 patch DAILY TD 06/03/17 15:00 06/06/17 08:22 Sodium Chloride (NS Flush) 2 ml BID IV FLUSH 06/03/17 21:00 06/06/17 08:23 Senna/Docusate Sodium (Roxanna-Colace) 1 tab BID PO 06/03/17 21:00 06/06/17 08:22 Magnesium Oxide (Mag-Ox) 400 mg BID PO 06/03/17 21:00 06/05/17 21:10 Guaifenesin (Mucinex Er) 600 mg BID PO 06/03/17 14:45 06/06/17 08:22 Pantoprazole Sodium (Protonix) 40 mg DAILY PO 06/03/17 14:45 06/06/17 08:22 Miscellaneous Information 1 1 HS T-DERMAL 06/03/17 21:00 06/05/17 21:00 Diltiazem HCl 125 mg/Sodium Chloride 125 ml @ 0 mls/hr TITRATE IV 06/03/17 23:00 06/05/17 09:55 Levofloxacin/ Dextrose (Levaquin 750 Mg Premix Inj) 150 ml @ 100 mls/hr Q24H IV 06/04/17 02:00 06/06/17 02:18 Miscellaneous Information 1 Q361D XX 06/04/17 01:45 06/04/17 01:45 Chlorhexidine Gluconate (Chlorhexidine 2% Cloth) 3 pack Taper DAILY@04 TOP 06/04/17 04:00 05/31/18 03:59 06/06/17 02:18 Folic Acid (Folate) 1 mg DAILY PO 06/04/17 09:00 06/09/17 08:59 06/06/17 08:23 Thiamine HCl (Vitamin B1) 100 mg DAILY PO 06/04/17 09:00 06/06/17 08:22 Multivitamins/ Minerals Therapeutic (Theragran M Tab) 1 tab DAILY PO 06/04/17 09:00 06/09/17 08:59 06/06/17 08:22 Enoxaparin Sodium 70 mg 70 mg Q12H SQ 06/04/17 10:00 06/06/17 08:23 Sodium Chloride (NS 1000 ml Inj) 1,000 ml @ 125 mls/hr Q8H IV 06/04/17 10:45 06/05/17 22:02 Budesonide/ Formoterol Fumarate 1 puff 1 puff Q12HR INH 06/04/17 21:00 06/06/17 08:24 Amiodarone HCl/ Dextrose (Cordarone Inj/ D5W ([place]) Inj) 250 ml @ 0 mls/hr CONTINUOUS IV 06/04/17 18:30 06/05/17 04:02 Metoprolol Tartrate (Lopressor) 50 mg Q12HR PO 06/05/17 09:00 06/06/17 08:22 Methylprednisolone Sodium Succinate 40 mg 40 mg Q8HR IVP 06/05/17 14:00 06/06/17 05:04 Sodium Phosphate 30 mmol/Sodium Chloride 250 ml @ 42 mls/hr UNSCH PRN IV For Phosphorus < 2.5 mg/dL 06/05/17 17:15 06/05/17 17:53 Cefepime HCl/ Sodium Chloride (Maxipime Inj/NS Inj) 100 ml @ 200 mls/hr Q8H IV 06/05/17 21:00 06/06/17 05:05 Tamsulosin HCl (Flomax) 0.4 mg Q12HR PO 06/06/17 09:00 06/06/17 08:51 Vital Signs / I&O Vital Signs Date Time Temp Pulse Resp B/P Pulse Ox O2 Delivery O2 Flow Rate FiO2 06/06/17 07:38 99 Nasal Cannula 2.00 06/06/17 06:00 65 06/06/17 04:02 99 30 06/06/17 04:00 99 Bi-Pap 35 06/06/17 04:00 65 06/06/17 04:00 98.8 65 22 116/58 99 06/06/17 02:00 56 06/06/17 00:00 55 06/06/17 00:00 97 Bi-Pap 35 06/06/17 00:00 98.5 55 20 108/59 95 06/05/17 23:15 96 30 06/05/17 23:07 99 Nasal Cannula 3.00 06/05/17 22:00 59 06/05/17 20:00 57 06/05/17 20:00 99 Nasal Cannula 3.00 06/05/17 20:00 97.7 57 19 108/55 100 06/05/17 18:00 78 06/05/17 17:00 101/61 06/05/17 16:00 Nasal Cannula 3.00 35 06/05/17 16:00 97.3 06/05/17 16:00 124 06/05/17 16:00 124 29 100/68 98 06/05/17 15:00 109 06/05/17 14:00 117 06/05/17 13:00 107 28 102/71 97 06/05/17 13:00 107 06/05/17 12:00 97.8 06/05/17 12:00 88 20 98/54 99 06/05/17 12:00 88 06/05/17 12:00 Nasal Cannula 3.00 35 06/05/17 11:00 89 21 101/56 97 06/05/17 11:00 89 I/O 06/05/17 06/05/17 06/05/17 06/06/17 06/06/17 06/06/17 07:00 15:00 23:00 07:00 15:00 23:00 Intake Total 1128 ml 1725 ml 1655 ml 1294 ml Output Total 350 ml 350 ml 400 ml 500 ml Balance 778 ml 1375 ml 1255 ml 794 ml Intake Oral 480 ml 300 ml 100 ml IV Total 1128 ml 1245 ml 1355 ml 1194 ml Output Urine Total 350 ml 350 ml 400 ml 500 ml # Voids 0 # Bowel Movements 0 Physical Exam GENERAL: This is a well-nourished, well-developed patient, in no apparent distress. CARDIOVASCULAR: Regular rate and rhythm without murmurs, gallops, or rubs. RESPIRATORY: Clear to auscultation. Breath sounds equal bilaterally. No wheezes , rales, or rhonchi. GASTROINTESTINAL: Abdomen soft, non-tender, nondistended. Normal active bowel sounds MUSCULOSKELETAL: Extremities without clubbing, cyanosis, or edema. NEURO: Alert & Oriented x4 to person, place, time, situation. Moves all ext x4 Laboratory Laboratory Tests Test 06/06/17 06:35 White Blood Count 17.5 TH/MM3 Red Blood Count 3.91 MIL/MM3 Hemoglobin 11.9 GM/DL Hematocrit 36.3 % Mean Corpuscular Volume 92.9 FL Mean Corpuscular Hemoglobin 30.4 PG Mean Corpuscular Hemoglobin 32.7 % Concent Red Cell Distribution Width 14.3 % Platelet Count 287 TH/MM3 Mean Platelet Volume 10.1 FL Neutrophils (%) (Auto) 94.7 % Lymphocytes (%) (Auto) 2.9 % Monocytes (%) (Auto) 2.3 % Eosinophils (%) (Auto) 0.0 % Basophils (%) (Auto) 0.1 % Neutrophils # (Auto) 16.5 TH/MM3 Lymphocytes # (Auto) 0.5 TH/MM3 Monocytes # (Auto) 0.4 TH/MM3 Eosinophils # (Auto) 0.0 TH/MM3 Basophils # (Auto) 0.0 TH/MM3 CBC Comment AUTO DIFF Differential Total Cells 100 Counted Neutrophils % (Manual) 83 % Band Neutrophils % 3 % Lymphocytes % 8 % Monocytes % 5 % Neutrophils # (Manual) 15.2 TH/MM3 Myelocytes 1 % Differential Comment FINAL DIFF MANUAL Hypersegmented Polys 1+ Platelet Estimate NORMAL Platelet Morphology Comment NORMAL Prothrombin Time 11.5 SEC Prothromb Time International 1.0 RATIO Ratio Sodium Level 143 MEQ/L Potassium Level 4.2 MEQ/L Chloride Level 111 MEQ/L Carbon Dioxide Level 25.8 MEQ/L Anion Gap 6 MEQ/L Blood Urea Nitrogen 25 MG/DL Creatinine 0.81 MG/DL Estimat Glomerular Filtration 94 ML/MIN Rate Random Glucose 159 MG/DL Calcium Level 8.2 MG/DL Phosphorus Level 2.9 MG/DL Magnesium Level 2.5 MG/DL Total Bilirubin 0.2 MG/DL Aspartate Amino Transf 26 U/L (AST/SGOT) Alanine Aminotransferase 23 U/L (ALT/SGPT) Alkaline Phosphatase 46 U/L Total Protein 6.0 GM/DL Albumin 2.1 GM/DL Imaging Last Impressions Chest X-Ray 06/06/17 0600 Signed Impressions: Service Date/Time: Tuesday, June 06, 2017 03:08 - CONCLUSION: 1. Basilar airspace consolidation and small effusions that have developed since June 03. Ron Pierce MD Chest CT 06/04/172026 Signed Impressions: Service Date/Time: May 21:53 - CONCLUSION: 1. Moderate to severe emphysema near the lung apices. 2. Dependent consolidation and the lines with possible bronchopneumonia left lower lobe. Small bilateral effusions. 3. Moderate to severe coronary calcifications. No adenopathy. Ron Pierce MD Assessment and Plan Problem List: (1) Atrial fibrillation Assessment and Plan: Appears to be sinus rhythm by tele, ekg pending; doesn't seem likely to be an anticoagulation candidate but will defer this to his primary campaign management specialist dr. pierce. (2) COPD (chronic obstructive pulmonary disease) (3) Hypoxemia (4) Tobacco abuse (5) Sepsis (6) Pneumonia (7) COPD exacerbation Mikey Russell MD Jun 06, 2017 10:49
[2017-06-06] MEDS: SODIUM CHLOR 0.9% 1000 ML INJ 1,000 ML IV SCH ×2 (12:05→19:01)
--- NOTE | 2017-06-06 18:18 | HHI.PR ---
Subjective Remarks Alert and on O2 at 4L No chest pain. On IV Antibiotics HR is better. On Cardizem, Amiodarone. Objective Vital Signs Date Time Temp Pulse Resp B/P Pulse Ox O2 Delivery O2 Flow Rate FiO2 06/06/17 17:00 135/64 06/06/17 17:00 77 06/06/17 16:00 98.1 06/06/17 16:00 Nasal Cannula 2.00 30 06/06/17 16:00 81 06/06/17 16:00 81 19 153/68 96 06/06/17 13:00 78 06/06/17 12:00 98.1 06/06/17 12:00 75 06/06/17 12:00 Nasal Cannula 2.00 30 06/06/17 12:00 75 21 146/67 97 06/06/17 11:00 78 19 157/73 96 06/06/17 11:00 78 06/06/17 10:01 75 23 154/71 97 06/06/17 10:01 75 06/06/17 10:00 76 06/06/17 10:00 76 26 97 06/06/17 09:01 78 27 164/69 97 06/06/17 09:01 78 06/06/17 08:00 79 06/06/17 08:00 79 31 129/63 98 06/06/17 08:00 98.1 06/06/17 08:00 77 06/06/17 08:00 Nasal Cannula 2.00 30 06/06/17 07:38 99 Nasal Cannula 2.00 06/06/17 06:00 65 06/06/17 04:02 99 30 06/06/17 04:00 99 Bi-Pap 35 06/06/17 04:00 65 06/06/17 04:00 98.8 65 22 116/58 99 06/06/17 02:00 56 06/06/17 00:00 55 06/06/17 00:00 97 Bi-Pap 35 06/06/17 00:00 98.5 55 20 108/59 95 06/05/17 23:15 96 30 06/05/17 23:07 99 Nasal Cannula 3.00 06/05/17 22:00 59 06/05/17 20:00 57 06/05/17 20:00 99 Nasal Cannula 3.00 06/05/17 20:00 97.7 57 19 108/55 100 I/O 06/05/17 06/05/17 06/05/17 06/06/17 06/06/17 06/06/17 07:00 15:00 23:00 07:00 15:00 23:00 Intake Total 1128 ml 1725 ml 1655 ml 1294 ml 1796 ml Output Total 350 ml 350 ml 400 ml 500 ml 650 ml Balance 778 ml 1375 ml 1255 ml 794 ml 1146 ml Intake Oral 480 ml 300 ml 100 ml 960 ml IV Total 1128 ml 1245 ml 1355 ml 1194 ml 836 ml Output Urine Total 350 ml 350 ml 400 ml 500 ml 650 ml # Voids 0 # Bowel Movements 0 1 Result Diagram: 06/06/1735 06/06/17 06 Objective Remarks PHYSICAL EXAMINATION GENERAL: This elderly thinly built white male who is alert and somewhat anxious. HEENT: Head normocephalic. Pupils are reactive. Tongue was moist. Throat is clear. NECK: Supple with no venous distension. No thyromegaly. No lymphadenopathy. CHEST: Equal movements with an increased AP diameter with diffuse wheezes over both lung perez. Prolonged expirations with occ basal crackles. HEART: Heart sounds are irregularly irregular. S1-S2 and tachycardiac without murmur. ABDOMEN: Soft, slightly bloated, no organomegaly. Bowel sounds are faint. EXTREMITIES: Decreased pulses. No edema and there is no calf tenderness. NEURO: Reflexes are 1+ with no gross motor deficits. Cranial nerves are grossly intact. SKIN: No lesions observed. Assessment and Plan Assessment and Plan IMPRESSION 1. COPD with acute exacerbation. 2. Hypoxemic and hypercapnic respiratory failure. 3. He has atrial fibrillation with rapid ventricular response. 4. Nicotine dependency. Plan : 1. Continue O2 at 2 l 2. IV amiodarone/cardizem 3. Solumedrol IV 40 mg q12h 4. Cont Nebs tid with duoneb,. 5. D/C Bipap 6. CBC, BMP in am 7. Transfer to [facility]. Clay Zarate MD Jun 06, 2017 18:18
[2017-06-07] VITALS: BP 143/70; PULSE 79; RESP 18; TEMP 98.2; O2SAT 98
[2017-06-07] MEDS: RESP: ALBUTEROL 2.5 MG/IPRATROPIUM 0.5 MG NEB (SCH) INH ×2 (00:38→08:25)
[2017-06-07 00:42] VITALS: O2SAT 98
[2017-06-07] MEDS: REMOVE OLD NICODERM (NICOTINE) PATCH T-DERMAL SCH ×2 (01:26→21:21)
[2017-06-07] MEDS: LEVOFLOXACIN 750 MG PREMIX INJ 150 ML IV SCH (01:52)
[2017-06-07] MEDS: SODIUM CHLOR 0.9% 1000 ML INJ 1,000 ML IV SCH ×3 (03:18→18:45)
[2017-06-07 04:00] VITALS: BP 152/70; PULSE 77; RESP 18; TEMP 97.9; O2SAT 95
[2017-06-07] MEDS: CHLORHEXIDINE GLUCONATE 2 % 1 PACK (2 CLOTHS) TOP SCH (04:00)
[2017-06-07] MEDS: CEFEPIME INJ 1,000 MG in SODIUM CHLORIDE 0.9% INJ 100 ML IV SCH ×2 (05:20→13:44)
[2017-06-07 05:22] LABS: AUTOMATED NEUTROPHIL # 12.8 TH/MM3 (1.8-7.7); BASOPHIL % 0.2 % (0.0-2.0); EOSINOPHIL % 0.1 % (0.0-4.0); HEMATOCRIT 35.1 % (39.0-51.0); LYMPH % 3.6 % (9.0-44.0); LYMPHOCYTE # 0.5 TH/MM3 (1.0-4.8); MEAN CELL VOLUME 92.4 FL (80.0-100.0); MEAN CORPUSCULAR HEMOGLOBIN 29.4 PG (27.0-34.0); MEAN CORPUSCULAR HGB CONC 31.8 % (32.0-36.0); MONO % 3.3 % (0.0-8.0); NEUT % 92.8 % (16.0-70.0); PLATELET COUNT 315 TH/MM3 (150-450); RED BLOOD COUNT 3.79 MIL/MM3 (4.50-5.90); RED CELL DISTRIBUTION WIDTH 14.2 % (11.6-17.2); WHITE BLOOD COUNT 13.8 TH/MM3 (4.0-11.0)
[2017-06-07 05:36] LABS: HEMO FLAGS AUTO DIFF
[2017-06-07 06:29] LABS: ANION GAP 5 MEQ/L (5-15); AST (GOT) 31 U/L (15-37); BICARBONATE 28.7 MEQ/L (21.0-32.0); BLOOD UREA NITROGEN 20 MG/DL (7-18); CHLORIDE 108 MEQ/L (98-107); GLOMERULAR FILTRATION RATE 107 ML/MIN (>89); MAGNESIUM 2.5 MG/DL (1.5-2.5); POTASSIUM 4.2 MEQ/L (3.5-5.1); SODIUM (NA) 142 MEQ/L (136-145)
[2017-06-07 06:31] LABS: ALT (GPT) 28 U/L (12-78)
[2017-06-07 06:33] LABS: ALKALINE PHOSPHATASE 46 U/L (45-117); TOTAL BILIRUBIN ADULT 0.1 MG/DL (0.2-1.0)
[2017-06-07 07:40] LABS: BANDS 2 % (0-6); MYELOCYTES 1 % (0-0); NEUTROPHIL # MANUAL DIFF 12.4 TH/MM3 (1.8-7.7); PLATELET ESTIMATE SMEAR NORMAL (NORMAL); PLATELET MORPHOLOGY NORMAL (NORMAL); POLYS (SEG NEUTROPHILS) 87 % (16-70); SCAN/DIFF FINAL DIFF MANUAL; WBC DIFF SAMPLE 100
[2017-06-07 08:25] VITALS: O2SAT 98
[2017-06-07] MEDS: PANTOPRAZOLE SOD 40 MG DELAYED RELEASE TAB PO SCH (09:00)
[2017-06-07] MEDS: SODIUM CHLORIDE 0.9% FLUSH 10 ML FLUSH IV FLUSH SCH ×2 (09:00→21:18)
[2017-06-07] MEDS: BUDESONIDE-FORMOTEROL 160/4.5 MCG INHALER INH SCH ×2 (09:00→23:14)
[2017-06-07] MEDS: MULTIVITAMINS/MINERALS THERAPEUTIC TAB PO SCH (09:00)
[2017-06-07] MEDS: TAMSULOSIN HCL 0.4 MG CAP PO SCH ×2 (09:00→21:17)
[2017-06-07] MEDS: METOPROLOL TARTRATE 50 MG TAB PO SCH ×2 (09:00→21:32)
[2017-06-07] MEDS: methylPREDNISolone SOD SUCC 125 MG/2 ML VIAL IVP SCH (09:00)
[2017-06-07] MEDS: NICOTINE 21 MG/24 HR PATCH TD SCH (09:00)
[2017-06-07] MEDS: FOLIC ACID 1 MG TAB PO SCH (09:00)
[2017-06-07] MEDS: THIAMINE HCL 100 MG TAB PO SCH (09:00)
[2017-06-07] MEDS: DOCUSATE SODIUM 50 MG/SENNA 8.6 MG TAB PO SCH ×2 (09:00→21:00)
[2017-06-07] MEDS: MAGNESIUM OXIDE 400 MG TAB PO SCH ×2 (09:00→21:17)
[2017-06-07] MEDS: guaiFENesin E.R. 600 MG TAB PO SCH ×2 (09:00→21:17)
[2017-06-07] MEDS: ENOXAPARIN SODIUM 80 MG/0.8 ML SYRINGE SQ SCH ×2 (10:00→21:17)
--- NOTE | 2017-06-07 15:14 | HHI.PR ---
Subjective Remarks This is a 71-year-old gentleman with a history of tobacco use, unknown past medical history, who presents today VIA EMS with cough and shortness of breath. The patient states that he's been in bed since Thursday. He states he's been weak and short of breath since then. When paramedics arrived they found his O2 sat to be 82. He is placed on 100% nonrebreather which brought up to 99% . He also reports low-grade fevers. The patient felt better with the O2. He has not seen a doctor since 2007. He says at that time he had no medical issues. He does smoke half pack of cigarettes had previously been up to 2 packs a day. Then down to one pack and then now to half pack a day. And states he drinks one to 2 beers per day. Is not currently taking any medication. His is been wanting him to come to the hospital since last week 06-04 events last night noted Transferred to ICU on a Cardizem drip Still short of breath Nurse's alerting me that he actually drinks much more alcohol than he states will need CIWA protocol Discussed with patient RN and family On BiPAP still short of breath Consult cardiology Consult pulmonary 06-05 patient has terry due to urinary retention seen by cardiology dr pierce- on amiodarone and Cardizem drip Medications have been adjusted by pulmonary. May need PRISCA and cardioversion later today Discussed with RN and patient and patient's family Wear BiPAP at rest or when sleeping am labs 06-06 Converted out of Afib yesterday can move out of the ICU still very sob no chest pain no nausea, no vomiting, no fevers, no chest pain ok out of icu dw rns and patient 06-07 NEEDS PT AND OT NEEDS AGGRESSIVE TREATMENT STILL HAS TERRY DC TERRY IF ABLE- BLADDER TRAINING DW PT AND RN Objective Vitals Vital Signs Date Time Temp Pulse Resp B/P (MAP) Pulse Ox O2 Delivery O2 Flow Rate FiO2 06/07/17 07:35 96 Nasal Cannula 2.00 30 06/07/17 04:00 Nasal Cannula 2.00 30 06/07/17 04:00 97.9 77 18 152/70 (97) 95 06/07/17 00:42 98 Nasal Cannula 2.00 06/07/17 00:00 98.2 79 18 143/70 (94) 98 06/07/17 00:00 Nasal Cannula 2.00 30 06/06/17 22:40 98.0 81 20 148/73 (98) 98 06/06/17 20:00 98 Nasal Cannula 2.00 06/06/17 20:00 71 06/06/17 20:00 98.9 72 18 136/64 (88) 98 06/06/17 19:52 97 Nasal Cannula 2.00 06/06/17 17:00 135/64 (87) 06/06/17 17:00 77 06/06/17 16:00 98.1 06/06/17 16:00 Nasal Cannula 2.00 30 06/06/17 16:00 81 06/06/17 16:00 81 19 153/68 (96) 96 I/O 06/06/17 06/06/17 06/06/17 06/07/17 06/07/17 06/07/17 07:00 15:00 23:00 07:00 15:00 23:00 Intake Total 1294 ml 1796 ml 540 ml 923 ml Output Total 500 ml 650 ml 500 ml 650 ml Balance 794 ml 1146 ml 40 ml 273 ml Intake Oral 100 ml 960 ml 240 ml 500 ml IV Total 1194 ml 836 ml 300 ml 423 ml Output Urine Total 500 ml 650 ml 500 ml 650 ml # Bowel Movements 1 2 1 Result Diagram: 06/07/177 06/07/17446 Other Results Laboratory Tests Test 06/05/17 10:46 06/06/17 06:35 06/07/17 04:47 White Blood Count 21.2 TH/MM3 17.5 TH/MM3 13.8 TH/MM3 Red Blood Count 3.95 MIL/MM3 3.91 MIL/MM3 3.79 MIL/MM3 Hemoglobin 11.8 GM/DL 11.9 GM/DL 11.2 GM/DL Hematocrit 36.9 % 36.3 % 35.1 % Mean Corpuscular Volume 93.4 FL 92.9 FL 92.4 FL Mean Corpuscular Hemoglobin 29.9 PG 30.4 PG 29.4 PG Mean Corpuscular Hemoglobin Concent 32.0 % 32.7 % 31.8 % Red Cell Distribution Width 14.6 % 14.3 % 14.2 % Platelet Count 280 TH/MM3 287 TH/MM3 315 TH/MM3 Mean Platelet Volume 10.4 FL 10.1 FL 9.8 FL Neutrophils (%) (Auto) 94.7 % 94.7 % 92.8 % Lymphocytes (%) (Auto) 2.2 % 2.9 % 3.6 % Monocytes (%) (Auto) 3.0 % 2.3 % 3.3 % Eosinophils (%) (Auto) 0.0 % 0.0 % 0.1 % Basophils (%) (Auto) 0.1 % 0.1 % 0.2 % Neutrophils # (Auto) 20.1 TH/MM3 16.5 TH/MM3 12.8 TH/MM3 Lymphocytes # (Auto) 0.5 TH/MM3 0.5 TH/MM3 0.5 TH/MM3 Monocytes # (Auto) 0.6 TH/MM3 0.4 TH/MM3 0.4 TH/MM3 Eosinophils # (Auto) 0.0 TH/MM3 0.0 TH/MM3 0.0 TH/MM3 Basophils # (Auto) 0.0 TH/MM3 0.0 TH/MM3 0.0 TH/MM3 CBC Comment AUTO DIFF AUTO DIFF AUTO DIFF Differential Comment AUTO DIFF CONFIRMED FINAL DIFF MANUAL FINAL DIFF MANUAL Blood Urea Nitrogen 28 MG/DL 25 MG/DL 20 MG/DL Creatinine 0.76 MG/DL 0.81 MG/DL 0.73 MG/DL Random Glucose 186 MG/DL 159 MG/DL 154 MG/DL Total Protein 6.2 GM/DL 6.0 GM/DL 5.3 GM/DL Albumin 2.2 GM/DL 2.1 GM/DL 2.0 GM/DL Calcium Level 7.9 MG/DL 8.2 MG/DL 8.1 MG/DL Phosphorus Level 2.4 MG/DL 2.9 MG/DL 2.8 MG/DL Magnesium Level 2.5 MG/DL 2.5 MG/DL 2.5 MG/DL Alkaline Phosphatase 53 U/L 46 U/L 46 U/L Aspartate Amino Transf (AST/SGOT) 29 U/L 26 U/L 31 U/L Alanine Aminotransferase (ALT/SGPT) 25 U/L 23 U/L 28 U/L Total Bilirubin 0.2 MG/DL 0.2 MG/DL 0.1 MG/DL Sodium Level 141 MEQ/L 143 MEQ/L 142 MEQ/L Potassium Level 4.0 MEQ/L 4.2 MEQ/L 4.2 MEQ/L Chloride Level 110 MEQ/L 111 MEQ/L 108 MEQ/L Carbon Dioxide Level 26.6 MEQ/L 25.8 MEQ/L 28.7 MEQ/L Anion Gap 4 MEQ/L 6 MEQ/L 5 MEQ/L Estimat Glomerular Filtration Rate 102 ML/MIN 94 ML/MIN 107 ML/MIN Differential Total Cells Counted 100 100 Neutrophils % (Manual) 83 % 87 % Band Neutrophils % 3 % 2 % Lymphocytes % 8 % 5 % Monocytes % 5 % 5 % Neutrophils # (Manual) 15.2 TH/MM3 12.4 TH/MM3 Myelocytes 1 % 1 % Hypersegmented Polys 1+ Platelet Estimate NORMAL NORMAL Platelet Morphology Comment NORMAL NORMAL Prothrombin Time 11.5 SEC Prothromb Time International Ratio 1.0 RATIO Imaging Last Impressions Chest X-Ray 06/06/17 0600 Signed Impressions: Service Date/Time: Tuesday, June 06, 2017 03:08 - CONCLUSION: 1. Basilar airspace consolidation and small effusions that have developed since June 03. Ron Pierce MD Chest CT 06/04/172026 Signed Impressions: Service Date/Time: May 21:53 - CONCLUSION: 1. Moderate to severe emphysema near the lung apices. 2. Dependent consolidation and the lines with possible bronchopneumonia left lower lobe. Small bilateral effusions. 3. Moderate to severe coronary calcifications. No adenopathy. Ron Pierce MD Objective Remarks GENERAL: This is a well-nourished, well-developed patient, in mild to moderate distress appears to have some wasting in his chest area SKIN: No rashes, ecchymoses or lesions. Cool and dry. HEAD: Atraumatic. Normocephalic. No temporal or scalp tenderness. EYES: Pupils equal round and reactive. Extraocular motions intact. No scleral icterus. No injection or drainage. ENT: Nose without bleeding, purulent drainage or septal hematoma. Throat without erythema, tonsillar hypertrophy or exudate. Uvula midline. Airway patent. Tongue is midline NECK: Trachea midline. No JVD or lymphadenopathy. Supple, nontender, no meningeal signs. CARDIOVASCULAR: Regular rate and rhythm without murmurs, gallops, or rubs. S1- S2 no S3 or S4 no heave no thrill RESPIRATORY: Coarse breath sounds. Breath sounds equal bilaterally. Rhonchi and wheezes throughout GASTROINTESTINAL: Abdomen soft, non-tender, nondistended. No hepato-splenomegaly , or palpable masses. No guarding. MUSCULOSKELETAL: Extremities without clubbing, cyanosis, or edema. No joint tenderness, effusion, or edema noted. No calf tenderness. Negative Homans sign bilaterally. NEUROLOGICAL: Awake and alert. Cranial nerves II through XII intact. Motor and sensory grossly within normal limits. Five out of 5 muscle strength in all muscle groups. Normal speech. Insight and judgment limited at this time Terry catheter in place mood and behaviors appropriate Medications and IVs Current Medications Ceftriaxone Sodium 2000 mg/ Sodium Chloride 100 ml @ 200 mls/hr ONCE STAT IV Last administered on 06/03/17 12:47; Start 06/03/17 at 11:38; Stop 06/03/17 at 12:07; Status DC Azithromycin 500 mg/Sodium Chloride 250 ml @ 250 mls/hr ONCE STAT IV Last administered on 06/03/17 13:35; Start 06/03/17 at 11:38; Stop 06/03/17 at 12:37 ; Status DC Sodium Chloride 1,000 ml @ 125 mls/hr Q8H IV Last administered on 06/03/17 12 :48; Start 06/03/17 at 12:30; Stop 06/03/17 at 14:42; Status DC Sodium Chloride 1,000 ml @ 75 mls/hr [id number] IV Last administered on 05:16; Start 06/03/17 at 15:00; Stop 06/04/17 at 19:12; Status DC Sodium Chloride (NS Flush) 2 ml BID IV FLUSH ; Start 06/03/17 at 21:00; Status UNV Sodium Chloride (NS Flush) 2 ml UNSCH PRN IV FLUSH FLUSH AFTER USING IV ACCESS ; Start 06/03/17 at 13:15; Status UNV Albuterol/ Ipratropium (Duoneb Neb) 1 ampule Q4HR NEB INH Last administered on 06/04/17 15:47; Start 06/03/17 at 16:00; Stop 06/04/17 at 18:10; Status DC Albuterol Sulfate (Albuterol Neb) 2.5 mg Q2HR NEB PRN INH SHORTNESS OF BREATH; Start 06/03/17 at 13:15 Budesonide/ Formoterol Fumarate (Symbicort 160-4.5 Inh) 2 puff Q12HR INH Last administered on 06/04/17 11:51; Start 06/03/17 at 21:00; Stop 06/04/17 at 18:23 ; Status DC Methylprednisolone Sodium Succinate (SoluMEDROL INJ) 60 mg Q6H IVP Last administered on 06/04/17 15:25; Start 06/03/17 at 15:00; Stop 06/04/17 at 18:11 ; Status DC Ceftriaxone Sodium 1000 mg/ Sodium Chloride 100 ml @ 200 mls/hr Q24H IV ; Start 06/04/17 at 12:00; Stop 06/04/17 at 12:00; Status DC Nicotine (Habitrol 21 Mg Patch.24 Hr) 1 patch DAILY TD Last administered on 09:00; Start 06/03/17 at 15:00 Azithromycin 500 mg/Sodium Chloride 250 ml @ 250 mls/hr Q24H IV ; Start at 14:00; Stop 06/04/17 at 14:00; Status DC Enoxaparin Sodium (Lovenox Inj) 40 mg Q24H SQ Last administered on 06/03/17 15 :42; Start 06/03/17 at 15:00; Stop 06/04/17 at 08:36; Status DC Sodium Chloride (NS Flush) 2 ml UNSCH PRN IV FLUSH FLUSH AFTER USING IV ACCESS ; Start 06/03/17 at 13:15 Sodium Chloride (NS Flush) 2 ml BID IV FLUSH Last administered on 06/07/17 09: 00; Start 06/03/17 at 21:00 Acetaminophen (Tylenol) 650 mg Q4H PRN PO TEMP > 100.4; Start 06/03/17 at 13:15 Ondansetron HCl (Zofran Inj) 4 mg Q6H PRN IVP NAUSEA OR VOMITING; Start at 13:15 Prochlorperazine (Compazine Supp) 25 mg Q12H PRN RECTAL NAUSEA OR VOMITING; Start 06/03/17 at 13:15 Acetaminophen (Tylenol) 650 mg Q6H PRN PO PAIN SCALE 1 TO 2; Start 06/03/17 at 13:15 Oxycodone/ Acetaminophen (Percocet 5-325 Mg) 1 tab Q6H PRN PO PAIN SCALE 3 TO 5; Start 06/03/17 at 13:15 Oxycodone/ Acetaminophen (Percocet 10-325 Mg) 1 tab Q6H PRN PO PAIN SCALE 6 TO 10; Start 06/03/17 at 13:15 Morphine Sulfate (Morphine Inj) 2 mg Q3H PRN IV Pain 3-5; if unable to take PO ; Start 06/03/17 at 13:15 Morphine Sulfate (Morphine Inj) 4 mg Q3H PRN IV Pain 6-10;if unable to take PO ; Start 06/03/17 at 13:15 Morphine Sulfate (Morphine Inj) 4 mg Q3H PRN IV BREAKTHROUGH PAIN; Start at 13:15 Naloxone HCl (Narcan Inj) 0.4 mg UNSCH PRN IV SEE LABEL COMMENTS; Start at 13:15 Senna/Docusate Sodium (Roxanna-Colace) 1 tab BID PO Last administered on 21:08; Start 06/03/17 at 21:00 Magnesium Hydroxide (Milk Of Magnesia Liq) 30 ml Q12H PRN PO MILD - MODERATE CONSTIPATION; Start 06/03/17 at 13:15 Sennosides (Senokot) 17.2 mg Q12H PRN PO MODERATE - SEVERE CONSTIPATION; Start 06/03/17 at 13:15 Bisacodyl (Dulcolax Supp) 10 mg DAILY PRN RECTAL SEVERE CONSITIPATION; Start at 13:15 Lactulose (Lactulose Liq) 30 ml DAILY PRN PO SEVERE CONSITIPATION; Start at 13:15 Sodium Chloride (NS Flush) 2 ml UNSCH PRN IV FLUSH FLUSH AFTER USING IV ACCESS ; Start 06/03/17 at 13:15; Status UNV Sodium Chloride (NS Flush) 2 ml BID IV FLUSH ; Start 06/03/17 at 21:00; Status UNV Magnesium Oxide (Mag-Ox) 400 mg BID PO Last administered on 06/07/17 09:00; Start 06/03/17 at 21:00 Guaifenesin (Mucinex Er) 600 mg BID PO Last administered on 06/07/17 09:00; Start 06/03/17 at 14:45 Pantoprazole Sodium (Protonix) 40 mg DAILY PO Last administered on 06/07/17 09 :00; Start 06/03/17 at 14:45 Miscellaneous Information 1 HS T-DERMAL Last administered on 06/07/17 01:26; Start 06/03/17 at 21:00 Pneumococcal Polyvalent Vaccine (Pneumovax-23 Inj) 25 mcg ONCE ONCE IM ; Start 06/04/17 at 09:00; Stop 06/04/17 at 09:01; Status DC Diltiazem HCl (Cardizem Inj) 20 mg ONCE ONCE IVP Last administered on 23:15; Start 06/03/17 at 23:00; Stop 06/03/17 at 23:07; Status DC Diltiazem HCl 125 mg/Sodium Chloride 125 ml @ 0 mls/hr TITRATE IV Last administered on 06/05/17 09:55; Start 06/03/17 at 23:00 Adenosine (Adenocard Inj) 6 mg ONCE ONCE IV PUSH Last administered on 23:33; Start 06/03/17 at 23:30; Stop 06/03/17 at 23:31; Status DC Adenosine (Adenocard Inj) 6 mg ONCE ONCE IV PUSH ; Start 06/03/17 at 23:30; Stop 06/03/17 at 23:31; Status DC Adenosine (Adenocard Inj) 12 mg ONCE ONCE IV PUSH Last administered on 23:38; Start 06/03/17 at 23:30; Stop 06/03/17 at 23:31; Status DC Sodium Chloride 500 ml @ 500 mls/hr BOLUS ONCE IV Last administered on 01:53; Start 06/04/17 at 01:15; Stop 06/04/17 at 02:14; Status DC Enoxaparin Sodium (Lovenox Inj) 70 mg ONCE ONCE SQ Last administered on 01:55; Start 06/04/17 at 01:15; Stop 06/04/17 at 01:16; Status DC Levofloxacin/ Dextrose 150 ml @ 100 mls/hr Q24H IV Last administered on 01:52; Start 06/04/17 at 02:00 Miscellaneous Information 1 [id number] Last administered on 06/04/17 01:45; Start 06/04/17 at 01:45 Chlorhexidine Gluconate (Chlorhexidine 2% Cloth) 3 pack Taper DAILY@04 TOP Last administered on 06/06/17t 02:18; Start 06/04/17 at 04:00; Stop 05/31/18 at 03:59 Chlorhexidine Gluconate (Chlorhexidine 2% Cloth) 3 pack UNSCH PRN TOP HYGIENIC CARE; Start 06/04/17 at 01:45 Sodium Chloride 1,000 ml @ 999 mls/hr BOLUS ONCE IV Last administered on 06/04t 05:12; Start 06/04/17 at 05:00; Stop 06/04/17 at 06:00; Status DC Flumazenil (Romazicon Inj) 0.2 mg Q1M PRN IV PUSH SEE LABEL COMMENTS; Start at 08:30 Lorazepam (Ativan) 1 mg Q4H PRN PO CIWA 8 - 10; Start 06/04/17 at 08:30 Lorazepam (Ativan Inj) 1 mg Q4H PRN IV PUSH CIWA 8 - 10; Start 06/04/17 at 08: 30 Lorazepam (Ativan) 2 mg Q2H PRN PO CIWA 11-14; Start 06/04/17 at 08:30 Lorazepam (Ativan Inj) 2 mg Q2H PRN IV PUSH CIWA 11-14; Start 06/04/17 at 08:30 Lorazepam (Ativan Inj) 2 mg Q1H PRN IV PUSH CIWA 15-20; Start 06/04/17 at 08:30 Lorazepam (Ativan Inj) 2 mg Q15M PRN IV PUSH CIWA > 20; Start 06/04/17 at 08:30 Flumazenil (Romazicon Inj) 0.2 mg Q1M PRN IV PUSH SEE LABEL COMMENTS; Start at 08:30; Status UNV Haloperidol Lactate (Haldol Inj) 2 mg Q15M PRN IM SEE LABEL COMMENTS; Start at 08:30 Sodium Chloride (NS Flush) 2 ml UNSCH PRN IV FLUSH FLUSH AFTER USING IV ACCESS ; Start 06/04/17 at 08:30; Status Cancel Sodium Chloride (NS Flush) 2 ml BID IV FLUSH ; Start 06/04/17 at 09:00; Status Cancel Folic Acid (Folate) 1 mg DAILY PO Last administered on 06/07/17 09:00; Start 06/04/17 at 09:00; Stop 06/09/17 at 08:59 Thiamine HCl (Vitamin B1) 100 mg DAILY PO Last administered on 06/07/17 09:00 ; Start 06/04/17 at 09:00 Multivitamins/ Minerals Therapeutic (Theragran M Tab) 1 tab DAILY PO Last administered on 06/07/17 09:00; Start 06/04/17 at 09:00; Stop 06/09/17 at 08:59 Ondansetron HCl (Zofran Inj) 4 mg Q6H PRN IV NAUSEA OR VOMITING; Start at 08:30; Status UNV Pantoprazole Sodium (Protonix) 40 mg DAILY PO ; Start 06/04/17 at 09:00; Status UNV Clonidine (Catapres) 0.1 mg Q6H PRN PO SEE LABEL COMMENTS; Start 06/04/17 at 08 :30; Stop 06/05/17 at 08:41; Status DC Enoxaparin Sodium (Lovenox Inj) 70 mg Q12H SQ Last administered on 06/07/17 10 :00; Start 06/04/17 at 10:00 Sodium Chloride 1,000 ml @ 999 mls/hr BOLUS ONCE IV Last administered on 06/04 13:13; Start 06/04/17 at 10:45; Stop 06/04/17 at 11:45; Status DC Sodium Chloride 1,000 ml @ 125 mls/hr Q8H IV Last administered on 06/07/17 10 :45; Start 06/04/17 at 10:45 Amiodarone HCl 150 mg/Dextrose 100 ml @ 400 mls/hr NOW ONCE IV Last administered on 06/04/17 15:11; Start 06/04/17 at 15:00; Stop 06/04/17 at 15:14 ; Status DC Albuterol/ Ipratropium (Duoneb Neb) 1 ampule Q8HR NEB INH Last administered on 06/07/17 00:38; Start 06/05/17 at 00:00 Methylprednisolone Sodium Succinate (SoluMEDROL INJ) 40 mg Q6HR IVP Last administered on 06/05/17 05:50; Start 06/05/17 at 00:00; Stop 06/05/17 at 12:20 ; Status DC Budesonide/ Formoterol Fumarate (Symbicort 160-4.5 Inh) 1 puff Q12HR INH Last administered on 06/07/17 09:00; Start 06/04/17 at 21:00 Amiodarone HCl 450 mg/Dextrose 250 ml @ 0 mls/hr CONTINUOUS IV Last administered on 06/05/17 04:02; Start 06/04/17 at 18:30 Metoprolol Tartrate (Lopressor Inj) 5 mg STK-MED ONCE .ROUTE Last administered on 06/05/17 08:44; Start 06/05/17 at 08:31; Stop 06/05/17 at 08:32; Status DC Metoprolol Tartrate (Lopressor) 50 mg Q12HR PO Last administered on 06/07/17 09:00; Start 06/05/17 at 09:00 Methylprednisolone Sodium Succinate (SoluMEDROL INJ) 40 mg Q8HR IVP Last administered on 06/06/17 14:33; Start 06/05/17 at 14:00; Stop 06/06/17 at 18:16 ; Status DC Potassium Chloride 100 ml @ 50 mls/hr Q2H PRN IV For Potassium 2.8 - 3.2 mEq/L ; Start 06/05/17 at 17:15; Stop 06/06/17 at 21:00; Status DC Potassium Chloride 100 ml @ 50 mls/hr Q2H PRN IV For Potassium 2.8 - 3.2 mEq/L ; Start 06/05/17 at 17:15; Stop 06/06/17 at 21:00; Status DC Potassium Bicarb/ Potassium Chloride (K-Lyte Cl Eff) 50 meq UNSCH PRN PO For Potassium 3.3 - 3.5 mEq/L; Start 06/05/17 at 17:15; Stop 06/06/17 at 21:00; Status DC Potassium Chloride 100 ml @ 25 mls/hr UNSCH PRN IV For Potassium 3.3 - 3.5 mEq /L; Start 06/05/17 at 17:15; Stop 06/06/17 at 21:01; Status DC Potassium Chloride 100 ml @ 50 mls/hr Q2H PRN IV For Potassium 3.3 - 3.5 mEq/L ; Start 06/05/17 at 17:15; Stop 06/06/17 at 21:01; Status DC Magnesium Sulfate 4 gm/Sodium Chloride 100 ml @ 50 mls/hr UNSCH PRN IV For Magnesium 0.9 - 1.1 mg/dL; Start 06/05/17 at 17:15; Stop 06/06/17 at 21:01; Status DC Magnesium Oxide (Mag-Ox) 800 mg UNSCH PRN PO For Magnesium 1.2 - 1.6 mg/dL; Start 06/05/17 at 17:15; Stop 06/06/17 at 21:01; Status DC Magnesium Sulfate 2 gm/Sodium Chloride 100 ml @ 50 mls/hr UNSCH PRN IV For Magnesium 1.2 - 1.6 mg/dL; Start 06/05/17 at 17:15; Stop 06/06/17 at 21:01; Status DC Potassium Phosphate (K-Phos) 2,000 mg Q4H PRN PO For Phosphorus < 2.5 mg/dL; Start 06/05/17 at 17:15; Stop 06/06/17 at 21:02; Status DC Sodium Phosphate 30 mmol/Sodium Chloride 250 ml @ 42 mls/hr UNSCH PRN IV For Phosphorus < 2.5 mg/dL Last administered on 06/05/17 17:53; Start 06/05/17 at 17:15; Stop 06/06/17 at 21:02; Status DC Potassium Phosphate (K-Phos) 2,000 mg UNSCH PRN PO/TUBE SEE LABEL COMMENTS; Start 06/05/17 at 17:15; Stop 06/06/17 at 21:02; Status DC Potassium Phosphate 30 mmol/ Sodium Chloride 260 ml @ 42 mls/hr UNSCH PRN IV SEE LABEL COMMENTS; Start 06/05/17 at 17:15; Stop 06/06/17 at 21:02; Status DC Cefepime HCl 1000 mg/Sodium Chloride 100 ml @ 200 mls/hr Q8H IV Last administered on 06/07/17 13:44; Start 06/05/17 at 21:00 Tamsulosin HCl (Flomax) 0.4 mg Q12HR PO Last administered on 06/07/17 09:00; Start 06/06/17 at 09:00 Methylprednisolone Sodium Succinate (SoluMEDROL INJ) 40 mg BID IVP Last administered on 8/20/17at 09:00; Start 06/06/17 at 21:00 Urinary Catheter: Yes Assessment to: Continue Terry insert reason: Obstruction/Retention A/P Problem List: (1) Hypoxemia ICD Code: R09.02 - Hypoxemia Status: Acute (2) Tobacco abuse ICD Code: Z72.0 - Tobacco use Status: Acute (3) Sepsis ICD Code: A41.9 - Sepsis, unspecified organism Status: Acute (4) COPD (chronic obstructive pulmonary disease) ICD Code: J44.9 - Chronic obstructive pulmonary disease, unspecified Status: Acute (5) Pneumonia ICD Code: J18.9 - Pneumonia, unspecified organism Status: Acute (6) COPD exacerbation ICD Code: J44.1 - Chronic obstructive pulmonary disease with (acute) exacerbation Status: Acute (7) Atrial fibrillation ICD Code: I48.91 - Unspecified atrial fibrillation Status: Acute Assessment and Plan Pneumonia continue on incentive spirometry continue on Mucinex continue on DuoNeb's continue on cefepime on oxygen with incentive spirometry and Mucinex COPD exacerbation NicoDerm patch. Solu-Medrol CONSULT PULMONARY-OFF oF BiPAP --when trying to sleep desats when sleeping BPH START FLOMAX TERRY IN PLACE Tobacco abuse smoking cessation recommended NicoDerm patch Sepsis aggressive fluid rehydration and antibiotics treatment Chronic alcohol use CIWA AFIB- ON CARDIZEM DRIP and amiodarone drip- IN ICU- WAS GIVEN ADENOSINE- on metoprolol 50mg bid NEEDS ECHO AND CARDIOLOGY CONSULT-- had Echo- seen by CardiOLOGY LOVENOX 70MG SUBQ BID--we'll needs her XARELTO or Eliquis AT discharge ALCOHOL ABUSE- CIWA PROTOCOLS- less withdrawals Continued DVT and GI prophylaxis Discharge Planning HHC VS SNF AT [place] Shekhar Subramanian DO Jun 07, 2017 15:14
[2017-06-07 16:08] VITALS: BP 142/67; PULSE 70; RESP 21; TEMP 98.1; O2SAT 96
--- NOTE | 2017-06-07 17:53 | HHI.PR ---
Subjective Remarks Alert and on O2 at 4L No chest pain. On IV Antibiotics HR is higher . On Cardizem, Amiodarone.On Solumedrol still Objective Vital Signs Date Time Temp Pulse Resp B/P (MAP) Pulse Ox O2 Delivery O2 Flow Rate FiO2 06/07/17 16:08 98.1 70 21 142/67 (92) 96 06/07/17 08:25 98 Nasal Cannula 2.00 06/07/17 07:35 96 Nasal Cannula 2.00 30 06/07/17 04:00 Nasal Cannula 2.00 30 06/07/17 04:00 97.9 77 18 152/70 (97) 95 06/07/17 00:42 98 Nasal Cannula 2.00 06/07/17 00:00 98.2 79 18 143/70 (94) 98 06/07/17 00:00 Nasal Cannula 2.00 30 06/06/17 22:40 98.0 81 20 148/73 (98) 98 06/06/17 20:00 98 Nasal Cannula 2.00 06/06/17 20:00 71 06/06/17 20:00 98.9 72 18 136/64 (88) 98 06/06/17 19:52 97 Nasal Cannula 2.00 I/O 06/06/17 06/06/17 06/06/17 06/07/17 06/07/17 06/07/17 07:00 15:00 23:00 07:00 15:00 23:00 Intake Total 1294 ml 1796 ml 540 ml 923 ml 100 ml Output Total 500 ml 650 ml 500 ml 650 ml Balance 794 ml 1146 ml 40 ml 273 ml 100 ml Intake Oral 100 ml 960 ml 240 ml 500 ml IV Total 1194 ml 836 ml 300 ml 423 ml 100 ml Output Urine Total 500 ml 650 ml 500 ml 650 ml # Bowel Movements 1 2 1 Result Diagram: 06/07/1744606/07/17446 Objective Remarks PHYSICAL EXAMINATION GENERAL: This elderly thinly built white male who is alert and somewhat anxious. HEENT: Head normocephalic. Pupils are reactive. Tongue was moist. Throat is clear. NECK: Supple with no venous distension. No thyromegaly. No lymphadenopathy. CHEST: Equal movements with an increased AP diameter with occ wheezes over both lung perez. Prolonged expirations with no crackles. HEART: Heart sounds are irregularly irregular. S1-S2 and without murmur. ABDOMEN: Soft, slightly bloated, no organomegaly. Bowel sounds are faint. EXTREMITIES: Decreased pulses. Arm edema + ,and there is no calf tenderness. NEURO: Reflexes are 1+ with no gross motor deficits. Cranial nerves are grossly intact. SKIN: No lesions observed. Assessment and Plan Assessment and Plan IMPRESSION 1. COPD with acute exacerbation. 2. Hypoxemic and hypercapnic respiratory failure. 3. He has atrial fibrillation with rapid ventricular response. 4. Nicotine dependency. Plan : 1. Continue O2 at 2 l 2. Prednisone 10 mg daily 3. D/C Solumedrol 4. Cont Nebs tid with duoneb,. 5. D/C Bipap 6. CXR in am Clay Zarate MD Jun 07, 2017 17:53
[2017-06-07] MEDS ORDERED: DILTIAZEM INJ 125 MG in SODIUM CHLORIDE 0.9% INJ 100 ML IV SCH (18:15)
[2017-06-07] MEDS ORDERED: DILTIAZEM HCL 25 MG/5 ML VIAL IV PUSH ONE (18:15)
[2017-06-07] MEDS ORDERED: PILL SPLITTER OTHER PRN (18:15)
[2017-06-07 20:00] VITALS: BP 143/77; PULSE 68; PULSE 74; RESP 18; TEMP 97.4; O2SAT 96
[2017-06-08] VITALS (9 sets, daily range): BP systolic 130–178; BP diastolic 62–80; PULSE 63–90; RESP 18–21; TEMP 97.3–98.2; O2SAT 92–96
[2017-06-08] MEDS: CEFEPIME 1000 MG/NS 100 ML IV SCH ×6 (01:31→17:03)
[2017-06-08] MEDS: LEVOFLOXACIN 750 MG PREMIX INJ 150 ML IV SCH (02:09)
[2017-06-08] MEDS: SODIUM CHLOR 0.9% 1000 ML INJ 1,000 ML IV SCH ×2 (02:45→10:45)
[2017-06-08] MEDS: CHLORHEXIDINE GLUCONATE 2 % 1 PACK (2 CLOTHS) TOP SCH (05:05)
[2017-06-08] MEDS: RESP: ALBUTEROL 2.5 MG/IPRATROPIUM 0.5 MG NEB (SCH) INH ×3 (07:58→15:27)
[2017-06-08 08:47] LABS: ANION GAP 7 MEQ/L (5-15); AST (GOT) 24 U/L (15-37); BICARBONATE 30.2 MEQ/L (21.0-32.0); BLOOD UREA NITROGEN 15 MG/DL (7-18); CHLORIDE 104 MEQ/L (98-107); GLOMERULAR FILTRATION RATE 120 ML/MIN (>89); MAGNESIUM 2.4 MG/DL (1.5-2.5); SODIUM (NA) 141 MEQ/L (136-145)
[2017-06-08 08:50] LABS: ALKALINE PHOSPHATASE 46 U/L (45-117); ALT (GPT) 26 U/L (12-78); TOTAL BILIRUBIN ADULT 0.2 MG/DL (0.2-1.0)
[2017-06-08] MEDS: DOCUSATE SODIUM 50 MG/SENNA 8.6 MG TAB PO SCH ×2 (08:58→21:00)
[2017-06-08] MEDS: guaiFENesin E.R. 600 MG TAB PO SCH ×2 (08:59→21:16)
[2017-06-08] MEDS: METOPROLOL TARTRATE 50 MG TAB PO SCH ×2 (08:59→21:18)
[2017-06-08] MEDS: MULTIVITAMINS/MINERALS THERAPEUTIC TAB PO SCH (08:59)
[2017-06-08] MEDS: THIAMINE HCL 100 MG TAB PO SCH (08:59)
[2017-06-08] MEDS: predniSONE 10 MG TAB PO SCH (08:59)
[2017-06-08] MEDS: PANTOPRAZOLE SOD 40 MG DELAYED RELEASE TAB PO SCH (08:59)
[2017-06-08] MEDS: MAGNESIUM OXIDE 400 MG TAB PO SCH ×2 (08:59→21:17)
[2017-06-08] MEDS: FOLIC ACID 1 MG TAB PO SCH (08:59)
[2017-06-08] MEDS: ENOXAPARIN SODIUM 80 MG/0.8 ML SYRINGE SQ SCH ×2 (09:01→21:18)
[2017-06-08 09:02] LABS: AUTOMATED NEUTROPHIL # 12.3 TH/MM3 (1.8-7.7); BASOPHIL % 0.2 % (0.0-2.0); EOSINOPHIL % 0.2 % (0.0-4.0); LYMPH % 9.9 % (9.0-44.0); LYMPHOCYTE # 1.5 TH/MM3 (1.0-4.8); MEAN CELL VOLUME 91.6 FL (80.0-100.0); MEAN CORPUSCULAR HEMOGLOBIN 29.5 PG (27.0-34.0); MEAN CORPUSCULAR HGB CONC 32.3 % (32.0-36.0); MONO % 6.1 % (0.0-8.0); NEUT % 83.6 % (16.0-70.0); PLATELET COUNT 366 TH/MM3 (150-450); RED BLOOD COUNT 4.37 MIL/MM3 (4.50-5.90); RED CELL DISTRIBUTION WIDTH 14.1 % (11.6-17.2); WHITE BLOOD COUNT 14.7 TH/MM3 (4.0-11.0)
[2017-06-08] MEDS: NICOTINE 21 MG/24 HR PATCH TD SCH (09:12)
[2017-06-08] MEDS: BUDESONIDE-FORMOTEROL 160/4.5 MCG INHALER INH SCH ×2 (09:13→21:20)
[2017-06-08] MEDS: SODIUM CHLORIDE 0.9% FLUSH 10 ML FLUSH IV FLUSH SCH ×2 (09:13→21:19)
[2017-06-08] MEDS: TAMSULOSIN HCL 0.4 MG CAP PO SCH ×2 (09:13→21:16)
[2017-06-08 09:14] LABS: HEMO FLAGS AUTO DIFF
[2017-06-08 10:07] LABS: MYELOCYTES 3 % (0-0); NEUTROPHIL # MANUAL DIFF 12.1 TH/MM3 (1.8-7.7); POLYS (SEG NEUTROPHILS) 79 % (16-70); WBC DIFF SAMPLE 100
[2017-06-08 10:08] LABS: PLATELET ESTIMATE SMEAR NORMAL (NORMAL); PLATELET MORPHOLOGY NORMAL (NORMAL); SCAN/DIFF FINAL DIFF MANUAL
--- NOTE | 2017-06-08 13:02 | HHI.PR ---
Subjective Remarks Alert and on O2 at 4L Had Rapid Atr Fib last nite. On IV Antibiotics HR is high. On Cardizem, Amiodarone. Objective Vital Signs Date Time Temp Pulse Resp B/P (MAP) Pulse Ox O2 Delivery O2 Flow Rate FiO2 06/08/17 08:40 Nasal Cannula 2.00 06/08/17 08:00 98.2 69 18 154/70 (98) 92 06/08/17 07:59 94 Nasal Cannula 2.00 06/08/17 04:00 97.3 68 18 141/76 (97) 96 06/08/17 00:00 97.8 72 21 130/65 (86) 96 06/08/17 00:00 Nasal Cannula 2.00 06/07/17 20:00 Nasal Cannula 2.00 06/07/17 20:00 97.4 74 18 143/77 (99) 96 06/07/17 20:00 68 06/07/17 16:08 98.1 70 21 142/67 (92) 96 I/O 06/07/17 06/07/17 06/07/17 06/08/17 06/08/17 06/08/17 06:59 14:59 22:59 06:59 14:59 22:59 Intake Total 923 ml 100 ml 960 ml 928 ml Output Total 650 ml 1400 ml 1900 ml Balance 273 ml 100 ml -440 ml -972 ml Intake Oral 500 ml 960 ml 500 ml IV Total 423 ml 100 ml 428 ml Output Urine Total 650 ml 1400 ml 1900 ml # Bowel Movements 1 1 2 Result Diagram: 06/08/1762606/08/17626 Objective Remarks PHYSICAL EXAMINATION GENERAL: This elderly thinly built white male who is alert and anxious. HEENT: Head normocephalic. Pupils are reactive. Tongue was moist. Throat is clear. NECK: Supple with no venous distension. No thyromegaly. No lymphadenopathy. CHEST: Equal movements with an increased AP diameter with mild wheezes over both lung perez. Prolonged expirations with occ crackles. HEART: Heart sounds are irregularly irregular. S1-S2 and without murmur. ABDOMEN: Soft, no organomegaly. Bowel sounds are faint. EXTREMITIES: Decreased pulses. Arm edema + ,and there is no calf tenderness. NEURO: Reflexes are 1+ with no gross motor deficits. Cranial nerves are grossly intact. SKIN: No lesions observed. Assessment and Plan Assessment and Plan IMPRESSION 1. COPD with acute exacerbation. 2. Hypoxemic and hypercapnic respiratory failure. 3. He has atrial fibrillation with rapid ventricular response. 4. Nicotine dependency. Plan : 1. Continue O2 at 2 l 2. Prednisone 10 mg daily 3. Control cardiac Rythm./Rate 4. Cont Nebs tid with duoneb,. 5. D/C Bipap 6. CXR, CBC,BMP in am Clay Zarate MD Jun 08, 2017 13:02
[2017-06-08] MEDS ORDERED: FUROSEMIDE 20 MG/2 ML VIAL IV PUSH ONE (13:15)
--- NOTE | 2017-06-08 16:00 | HHI.PR ---
Subjective Remarks This is a 71-year-old gentleman with a history of tobacco use, unknown past medical history, who presents today VIA EMS with cough and shortness of breath. The patient states that he's been in bed since Thursday. He states he's been weak and short of breath since then. When paramedics arrived they found his O2 sat to be 82. He is placed on 100% nonrebreather which brought up to 99% . He also reports low-grade fevers. The patient felt better with the O2. He has not seen a doctor since 2007. He says at that time he had no medical issues. He does smoke half pack of cigarettes had previously been up to 2 packs a day. Then down to one pack and then now to half pack a day. And states he drinks one to 2 beers per day. Is not currently taking any medication. His is been wanting him to come to the hospital since last week 06-04 events last night noted Transferred to ICU on a Cardizem drip Still short of breath Nurse's alerting me that he actually drinks much more alcohol than he states will need CIWA protocol Discussed with patient RN and family On BiPAP still short of breath Consult cardiology Consult pulmonary 06-05 patient has terry due to urinary retention seen by cardiology dr pierce- on amiodarone and Cardizem drip Medications have been adjusted by pulmonary. May need PRISCA and cardioversion later today Discussed with RN and patient and patient's family Wear BiPAP at rest or when sleeping am labs 06-06 Converted out of Afib yesterday can move out of the ICU still very sob no chest pain no nausea, no vomiting, no fevers, no chest pain ok out of icu dw rns and patient 06-07 NEEDS PT AND OT NEEDS AGGRESSIVE TREATMENT STILL HAS TERRY DC TERRY IF ABLE- BLADDER TRAINING DW PT AND RN 06-08 DC TERRY STILL HAVING ISSUES WITH AFIB HAD TO BE ON CARDIZEM DRIP LAST NIGHT METOPROLOL INCREASED TO 75MG PO BID EFRAIN RN AND PT AND FAMILY MANY QUESTIONS ANSWERED OFF CARDIZEM DRIP AT THIS TIME Objective Vitals Vital Signs Date Time Temp Pulse Resp B/P (MAP) Pulse Ox O2 Delivery O2 Flow Rate FiO2 06/08/17 12:00 98.0 63 18 136/62 (86) 93 06/08/17 08:40 Nasal Cannula 2.00 06/08/17 08:00 98.2 69 18 154/70 (98) 92 06/08/17 07:59 94 Nasal Cannula 2.00 06/08/17 07:51 68 06/08/17 04:00 97.3 68 18 141/76 (97) 96 06/08/17 00:00 97.8 72 21 130/65 (86) 96 06/08/17 00:00 Nasal Cannula 2.00 06/07/17 20:00 Nasal Cannula 2.00 06/07/17 20:00 97.4 74 18 143/77 (99) 96 06/07/17 20:00 68 06/07/17 16:08 98.1 70 21 142/67 (92) 96 I/O 06/07/17 06/07/17 06/07/17 06/08/17 06/08/17 06/08/17 07:00 15:00 23:00 07:00 15:00 23:00 Intake Total 923 ml 100 ml 960 ml 928 ml Output Total 650 ml 1400 ml 1900 ml Balance 273 ml 100 ml -440 ml -972 ml Intake Oral 500 ml 960 ml 500 ml IV Total 423 ml 100 ml 428 ml Output Urine Total 650 ml 1400 ml 1900 ml # Bowel Movements 1 1 2 Result Diagram: 06/08/17 0606/08/17 06 Other Results Laboratory Tests Test 06/06/17 06:35 06/07/17 04:47 06/08/17 06:27 White Blood Count 17.5 TH/MM3 13.8 TH/MM3 14.7 TH/MM3 Red Blood Count 3.91 MIL/MM3 3.79 MIL/MM3 4.37 MIL/MM3 Hemoglobin 11.9 GM/DL 11.2 GM/DL 12.9 GM/DL Hematocrit 36.3 % 35.1 % 40.0 % Mean Corpuscular Volume 92.9 FL 92.4 FL 91.6 FL Mean Corpuscular Hemoglobin 30.4 PG 29.4 PG 29.5 PG Mean Corpuscular Hemoglobin Concent 32.7 % 31.8 % 32.3 % Red Cell Distribution Width 14.3 % 14.2 % 14.1 % Platelet Count 287 TH/MM3 315 TH/MM3 366 TH/MM3 Mean Platelet Volume 10.1 FL 9.8 FL 10.0 FL Neutrophils (%) (Auto) 94.7 % 92.8 % 83.6 % Lymphocytes (%) (Auto) 2.9 % 3.6 % 9.9 % Monocytes (%) (Auto) 2.3 % 3.3 % 6.1 % Eosinophils (%) (Auto) 0.0 % 0.1 % 0.2 % Basophils (%) (Auto) 0.1 % 0.2 % 0.2 % Neutrophils # (Auto) 16.5 TH/MM3 12.8 TH/MM3 12.3 TH/MM3 Lymphocytes # (Auto) 0.5 TH/MM3 0.5 TH/MM3 1.5 TH/MM3 Monocytes # (Auto) 0.4 TH/MM3 0.4 TH/MM3 0.9 TH/MM3 Eosinophils # (Auto) 0.0 TH/MM3 0.0 TH/MM3 0.0 TH/MM3 Basophils # (Auto) 0.0 TH/MM3 0.0 TH/MM3 0.0 TH/MM3 CBC Comment AUTO DIFF AUTO DIFF AUTO DIFF Differential Total Cells Counted 100 100 100 Neutrophils % (Manual) 83 % 87 % 79 % Band Neutrophils % 3 % 2 % Lymphocytes % 8 % 5 % 9 % Monocytes % 5 % 5 % 9 % Neutrophils # (Manual) 15.2 TH/MM3 12.4 TH/MM3 12.1 TH/MM3 Myelocytes 1 % 1 % 3 % Differential Comment FINAL DIFF MANUAL FINAL DIFF MANUAL FINAL DIFF MANUAL Hypersegmented Polys 1+ Platelet Estimate NORMAL NORMAL NORMAL Platelet Morphology Comment NORMAL NORMAL NORMAL Prothrombin Time 11.5 SEC Prothromb Time International Ratio 1.0 RATIO Blood Urea Nitrogen 25 MG/DL 20 MG/DL 15 MG/DL Creatinine 0.81 MG/DL 0.73 MG/DL 0.66 MG/DL Random Glucose 159 MG/DL 154 MG/DL 84 MG/DL Total Protein 6.0 GM/DL 5.3 GM/DL 5.5 GM/DL Albumin 2.1 GM/DL 2.0 GM/DL 2.1 GM/DL Calcium Level 8.2 MG/DL 8.1 MG/DL 7.6 MG/DL Phosphorus Level 2.9 MG/DL 2.8 MG/DL 2.4 MG/DL Magnesium Level 2.5 MG/DL 2.5 MG/DL 2.4 MG/DL Alkaline Phosphatase 46 U/L 46 U/L 46 U/L Aspartate Amino Transf (AST/SGOT) 26 U/L 31 U/L 24 U/L Alanine Aminotransferase (ALT/SGPT) 23 U/L 28 U/L 26 U/L Total Bilirubin 0.2 MG/DL 0.1 MG/DL 0.2 MG/DL Sodium Level 143 MEQ/L 142 MEQ/L 141 MEQ/L Potassium Level 4.2 MEQ/L 4.2 MEQ/L 4.0 MEQ/L Chloride Level 111 MEQ/L 108 MEQ/L 104 MEQ/L Carbon Dioxide Level 25.8 MEQ/L 28.7 MEQ/L 30.2 MEQ/L Anion Gap 6 MEQ/L 5 MEQ/L 7 MEQ/L Estimat Glomerular Filtration Rate 94 ML/MIN 107 ML/MIN 120 ML/MIN Red Cell Morphology Comment NORMAL Imaging Last Impressions Chest X-Ray 06/06/17 0600 Signed Impressions: Service Date/Time: Tuesday, June 06, 2017 03:08 - CONCLUSION: 1. Basilar airspace consolidation and small effusions that have developed since June 03. Ron Pierce MD Chest CT 06/04/172026 Signed Impressions: Service Date/Time: May 21:53 - CONCLUSION: 1. Moderate to severe emphysema near the lung apices. 2. Dependent consolidation and the lines with possible bronchopneumonia left lower lobe. Small bilateral effusions. 3. Moderate to severe coronary calcifications. No adenopathy. Ron Pierce MD Objective Remarks GENERAL: This is a well-nourished, well-developed patient, in mild to moderate distress appears to have some wasting in his chest area SKIN: No rashes, ecchymoses or lesions. Cool and dry. HEAD: Atraumatic. Normocephalic. No temporal or scalp tenderness. EYES: Pupils equal round and reactive. Extraocular motions intact. No scleral icterus. No injection or drainage. ENT: Nose without bleeding, purulent drainage or septal hematoma. Throat without erythema, tonsillar hypertrophy or exudate. Uvula midline. Airway patent. Tongue is midline NECK: Trachea midline. No JVD or lymphadenopathy. Supple, nontender, no meningeal signs. CARDIOVASCULAR: Regular rate and rhythm without murmurs, gallops, or rubs. S1- S2 no S3 or S4 no heave no thrill RESPIRATORY: Coarse breath sounds. Breath sounds equal bilaterally. Rhonchi and wheezes throughout GASTROINTESTINAL: Abdomen soft, non-tender, nondistended. No hepato-splenomegaly , or palpable masses. No guarding. MUSCULOSKELETAL: Extremities without clubbing, cyanosis, or edema. No joint tenderness, effusion, or edema noted. No calf tenderness. Negative Homans sign bilaterally. NEUROLOGICAL: Awake and alert. Cranial nerves II through XII intact. Motor and sensory grossly within normal limits. Five out of 5 muscle strength in all muscle groups. Normal speech. Insight and judgment limited at this time Terry catheter in place mood and behaviors appropriate Medications and IVs Current Medications Ceftriaxone Sodium 2000 mg/ Sodium Chloride 100 ml @ 200 mls/hr ONCE STAT IV Last administered on 06/03/17 12:47; Start 06/03/17 at 11:38; Stop 06/03/17 at 12:07; Status DC Azithromycin 500 mg/Sodium Chloride 250 ml @ 250 mls/hr ONCE STAT IV Last administered on 06/03/17 13:35; Start 06/03/17 at 11:38; Stop 06/03/17 at 12:37 ; Status DC Sodium Chloride 1,000 ml @ 125 mls/hr Q8H IV Last administered on 06/03/17 12 :48; Start 06/03/17 at 12:30; Stop 06/03/17 at 14:42; Status DC Sodium Chloride 1,000 ml @ 75 mls/hr [id number] IV Last administered on 05:16; Start 06/03/17 at 15:00; Stop 06/04/17 at 19:12; Status DC Sodium Chloride (NS Flush) 2 ml BID IV FLUSH ; Start 06/03/17 at 21:00; Status UNV Sodium Chloride (NS Flush) 2 ml UNSCH PRN IV FLUSH FLUSH AFTER USING IV ACCESS ; Start 06/03/17 at 13:15; Status UNV Albuterol/ Ipratropium (Duoneb Neb) 1 ampule Q4HR NEB INH Last administered on 06/04/17 15:47; Start 06/03/17 at 16:00; Stop 06/04/17 at 18:10; Status DC Albuterol Sulfate (Albuterol Neb) 2.5 mg Q2HR NEB PRN INH SHORTNESS OF BREATH; Start 06/03/17 at 13:15 Budesonide/ Formoterol Fumarate (Symbicort 160-4.5 Inh) 2 puff Q12HR INH Last administered on 06/04/17 11:51; Start 06/03/17 at 21:00; Stop 06/04/17 at 18:23 ; Status DC Methylprednisolone Sodium Succinate (SoluMEDROL INJ) 60 mg Q6H IVP Last administered on 06/04/17 15:25; Start 06/03/17 at 15:00; Stop 06/04/17 at 18:11 ; Status DC Ceftriaxone Sodium 1000 mg/ Sodium Chloride 100 ml @ 200 mls/hr Q24H IV ; Start 06/04/17 at 12:00; Stop 06/04/17 at 12:00; Status DC Nicotine (Habitrol 21 Mg Patch.24 Hr) 1 patch DAILY TD Last administered on 09:12; Start 06/03/17 at 15:00 Azithromycin 500 mg/Sodium Chloride 250 ml @ 250 mls/hr Q24H IV ; Start at 14:00; Stop 06/04/17 at 14:00; Status DC Enoxaparin Sodium (Lovenox Inj) 40 mg Q24H SQ Last administered on 06/03/17 15 :42; Start 06/03/17 at 15:00; Stop 06/04/17 at 08:36; Status DC Sodium Chloride (NS Flush) 2 ml UNSCH PRN IV FLUSH FLUSH AFTER USING IV ACCESS ; Start 06/03/17 at 13:15 Sodium Chloride (NS Flush) 2 ml BID IV FLUSH Last administered on 06/08/17 09: 13; Start 06/03/17 at 21:00 Acetaminophen (Tylenol) 650 mg Q4H PRN PO TEMP > 100.4; Start 06/03/17 at 13:15 Ondansetron HCl (Zofran Inj) 4 mg Q6H PRN IVP NAUSEA OR VOMITING; Start at 13:15 Prochlorperazine (Compazine Supp) 25 mg Q12H PRN RECTAL NAUSEA OR VOMITING; Start 06/03/17 at 13:15 Acetaminophen (Tylenol) 650 mg Q6H PRN PO PAIN SCALE 1 TO 2; Start 06/03/17 at 13:15 Oxycodone/ Acetaminophen (Percocet 5-325 Mg) 1 tab Q6H PRN PO PAIN SCALE 3 TO 5; Start 06/03/17 at 13:15 Oxycodone/ Acetaminophen (Percocet 10-325 Mg) 1 tab Q6H PRN PO PAIN SCALE 6 TO 10; Start 06/03/17 at 13:15 Morphine Sulfate (Morphine Inj) 2 mg Q3H PRN IV Pain 3-5; if unable to take PO ; Start 06/03/17 at 13:15 Morphine Sulfate (Morphine Inj) 4 mg Q3H PRN IV Pain 6-10;if unable to take PO ; Start 06/03/17 at 13:15 Morphine Sulfate (Morphine Inj) 4 mg Q3H PRN IV BREAKTHROUGH PAIN; Start at 13:15 Naloxone HCl (Narcan Inj) 0.4 mg UNSCH PRN IV SEE LABEL COMMENTS; Start at 13:15 Senna/Docusate Sodium (Roxanna-Colace) 1 tab BID PO Last administered on 21:08; Start 06/03/17 at 21:00 Magnesium Hydroxide (Milk Of Magnesia Liq) 30 ml Q12H PRN PO MILD - MODERATE CONSTIPATION; Start 06/03/17 at 13:15 Sennosides (Senokot) 17.2 mg Q12H PRN PO MODERATE - SEVERE CONSTIPATION; Start 06/03/17 at 13:15 Bisacodyl (Dulcolax Supp) 10 mg DAILY PRN RECTAL SEVERE CONSITIPATION; Start at 13:15 Lactulose (Lactulose Liq) 30 ml DAILY PRN PO SEVERE CONSITIPATION; Start at 13:15 Sodium Chloride (NS Flush) 2 ml UNSCH PRN IV FLUSH FLUSH AFTER USING IV ACCESS ; Start 06/03/17 at 13:15; Status UNV Sodium Chloride (NS Flush) 2 ml BID IV FLUSH ; Start 06/03/17 at 21:00; Status UNV Magnesium Oxide (Mag-Ox) 400 mg BID PO Last administered on 06/08/17 08:59; Start 06/03/17 at 21:00 Guaifenesin (Mucinex Er) 600 mg BID PO Last administered on 06/08/17 08:59; Start 06/03/17 at 14:45 Pantoprazole Sodium (Protonix) 40 mg DAILY PO Last administered on 06/08/17 08 :59; Start 06/03/17 at 14:45 Miscellaneous Information 1 HS T-DERMAL Last administered on 06/07/17 21:21; Start 06/03/17 at 21:00 Pneumococcal Polyvalent Vaccine (Pneumovax-23 Inj) 25 mcg ONCE ONCE IM ; Start 06/04/17 at 09:00; Stop 06/04/17 at 09:01; Status DC Diltiazem HCl (Cardizem Inj) 20 mg ONCE ONCE IVP Last administered on 23:15; Start 06/03/17 at 23:00; Stop 06/03/17 at 23:07; Status DC Diltiazem HCl 125 mg/Sodium Chloride 125 ml @ 0 mls/hr TITRATE IV Last administered on 06/05/17 09:55; Start 06/03/17 at 23:00; Stop 06/07/17 at 18:26 ; Status DC Adenosine (Adenocard Inj) 6 mg ONCE ONCE IV PUSH Last administered on 23:33; Start 06/03/17 at 23:30; Stop 06/03/17 at 23:31; Status DC Adenosine (Adenocard Inj) 6 mg ONCE ONCE IV PUSH ; Start 06/03/17 at 23:30; Stop 06/03/17 at 23:31; Status DC Adenosine (Adenocard Inj) 12 mg ONCE ONCE IV PUSH Last administered on 23:38; Start 06/03/17 at 23:30; Stop 06/03/17 at 23:31; Status DC Sodium Chloride 500 ml @ 500 mls/hr BOLUS ONCE IV Last administered on 01:53; Start 06/04/17 at 01:15; Stop 06/04/17 at 02:14; Status DC Enoxaparin Sodium (Lovenox Inj) 70 mg ONCE ONCE SQ Last administered on 01:55; Start 06/04/17 at 01:15; Stop 06/04/17 at 01:16; Status DC Levofloxacin/ Dextrose 150 ml @ 100 mls/hr Q24H IV Last administered on 02:09; Start 06/04/17 at 02:00 Miscellaneous Information 1 [id number] Last administered on 06/04/17t 01:45; Start 06/04/17 at 01:45 Chlorhexidine Gluconate (Chlorhexidine 2% Cloth) 3 pack Taper DAILY@04 TOP Last administered on 06/08/17t 05:05; Start 06/04/17 at 04:00; Stop 05/31/18 at 03:59 Chlorhexidine Gluconate (Chlorhexidine 2% Cloth) 3 pack UNSCH PRN TOP HYGIENIC CARE; Start 06/04/17 at 01:45 Sodium Chloride 1,000 ml @ 999 mls/hr BOLUS ONCE IV Last administered on 06/04t 05:12; Start 06/04/17 at 05:00; Stop 06/04/17 at 06:00; Status DC Flumazenil (Romazicon Inj) 0.2 mg Q1M PRN IV PUSH SEE LABEL COMMENTS; Start at 08:30 Lorazepam (Ativan) 1 mg Q4H PRN PO CIWA 8 - 10; Start 06/04/17 at 08:30 Lorazepam (Ativan Inj) 1 mg Q4H PRN IV PUSH CIWA 8 - 10; Start 06/04/17 at 08: 30 Lorazepam (Ativan) 2 mg Q2H PRN PO CIWA 11-14; Start 06/04/17 at 08:30 Lorazepam (Ativan Inj) 2 mg Q2H PRN IV PUSH CIWA 11-14; Start 06/04/17 at 08:30 Lorazepam (Ativan Inj) 2 mg Q1H PRN IV PUSH CIWA 15-20; Start 06/04/17 at 08:30 Lorazepam (Ativan Inj) 2 mg Q15M PRN IV PUSH CIWA > 20; Start 06/04/17 at 08:30 Flumazenil (Romazicon Inj) 0.2 mg Q1M PRN IV PUSH SEE LABEL COMMENTS; Start at 08:30; Status UNV Haloperidol Lactate (Haldol Inj) 2 mg Q15M PRN IM SEE LABEL COMMENTS; Start at 08:30 Sodium Chloride (NS Flush) 2 ml UNSCH PRN IV FLUSH FLUSH AFTER USING IV ACCESS ; Start 06/04/17 at 08:30; Status Cancel Sodium Chloride (NS Flush) 2 ml BID IV FLUSH ; Start 06/04/17 at 09:00; Status Cancel Folic Acid (Folate) 1 mg DAILY PO Last administered on 06/08/17 08:59; Start 06/04/17 at 09:00; Stop 06/09/17 at 08:59 Thiamine HCl (Vitamin B1) 100 mg DAILY PO Last administered on 06/08/17 08:59 ; Start 06/04/17 at 09:00 Multivitamins/ Minerals Therapeutic (Theragran M Tab) 1 tab DAILY PO Last administered on 06/08/17 08:59; Start 06/04/17 at 09:00; Stop 06/09/17 at 08:59 Ondansetron HCl (Zofran Inj) 4 mg Q6H PRN IV NAUSEA OR VOMITING; Start at 08:30; Status UNV Pantoprazole Sodium (Protonix) 40 mg DAILY PO ; Start 06/04/17 at 09:00; Status UNV Clonidine (Catapres) 0.1 mg Q6H PRN PO SEE LABEL COMMENTS; Start 06/04/17 at 08 :30; Stop 06/05/17 at 08:41; Status DC Enoxaparin Sodium (Lovenox Inj) 70 mg Q12H SQ Last administered on 06/08/17 09 :01; Start 06/04/17 at 10:00 Sodium Chloride 1,000 ml @ 999 mls/hr BOLUS ONCE IV Last administered on 06/04 13:13; Start 06/04/17 at 10:45; Stop 06/04/17 at 11:45; Status DC Sodium Chloride 1,000 ml @ 125 mls/hr Q8H IV Last administered on 06/07/17 10 :45; Start 06/04/17 at 10:45; Stop 06/08/17 at 12:26; Status DC Amiodarone HCl 150 mg/Dextrose 100 ml @ 400 mls/hr NOW ONCE IV Last administered on 06/04/17 15:11; Start 06/04/17 at 15:00; Stop 06/04/17 at 15:14 ; Status DC Albuterol/ Ipratropium (Duoneb Neb) 1 ampule Q8HR NEB INH Last administered on 06/08/17 15:27; Start 06/05/17 at 00:00 Methylprednisolone Sodium Succinate (SoluMEDROL INJ) 40 mg Q6HR IVP Last administered on 06/05/17 05:50; Start 06/05/17 at 00:00; Stop 06/05/17 at 12:20 ; Status DC Budesonide/ Formoterol Fumarate (Symbicort 160-4.5 Inh) 1 puff Q12HR INH Last administered on 06/08/17 09:13; Start 06/04/17 at 21:00 Amiodarone HCl 450 mg/Dextrose 250 ml @ 0 mls/hr CONTINUOUS IV Last administered on 06/05/17 04:02; Start 06/04/17 at 18:30 Metoprolol Tartrate (Lopressor Inj) 5 mg STK-MED ONCE .ROUTE Last administered on 06/05/17 08:44; Start 06/05/17 at 08:31; Stop 06/05/17 at 08:32; Status DC Metoprolol Tartrate (Lopressor) 50 mg Q12HR PO Last administered on 06/07/17 09:00; Start 06/05/17 at 09:00; Stop 06/07/17 at 18:11; Status DC Methylprednisolone Sodium Succinate (SoluMEDROL INJ) 40 mg Q8HR IVP Last administered on 06/06/17 14:33; Start 06/05/17 at 14:00; Stop 06/06/17 at 18:16 ; Status DC Potassium Chloride 100 ml @ 50 mls/hr Q2H PRN IV For Potassium 2.8 - 3.2 mEq/L ; Start 06/05/17 at 17:15; Stop 06/06/17 at 21:00; Status DC Potassium Chloride 100 ml @ 50 mls/hr Q2H PRN IV For Potassium 2.8 - 3.2 mEq/L ; Start 06/05/17 at 17:15; Stop 06/06/17 at 21:00; Status DC Potassium Bicarb/ Potassium Chloride (K-Lyte Cl Eff) 50 meq UNSCH PRN PO For Potassium 3.3 - 3.5 mEq/L; Start 06/05/17 at 17:15; Stop 06/06/17 at 21:00; Status DC Potassium Chloride 100 ml @ 25 mls/hr UNSCH PRN IV For Potassium 3.3 - 3.5 mEq /L; Start 06/05/17 at 17:15; Stop 06/06/17 at 21:01; Status DC Potassium Chloride 100 ml @ 50 mls/hr Q2H PRN IV For Potassium 3.3 - 3.5 mEq/L ; Start 06/05/17 at 17:15; Stop 06/06/17 at 21:01; Status DC Magnesium Sulfate 4 gm/Sodium Chloride 100 ml @ 50 mls/hr UNSCH PRN IV For Magnesium 0.9 - 1.1 mg/dL; Start 06/05/17 at 17:15; Stop 06/06/17 at 21:01; Status DC Magnesium Oxide (Mag-Ox) 800 mg UNSCH PRN PO For Magnesium 1.2 - 1.6 mg/dL; Start 06/05/17 at 17:15; Stop 06/06/17 at 21:01; Status DC Magnesium Sulfate 2 gm/Sodium Chloride 100 ml @ 50 mls/hr UNSCH PRN IV For Magnesium 1.2 - 1.6 mg/dL; Start 06/05/17 at 17:15; Stop 06/06/17 at 21:01; Status DC Potassium Phosphate (K-Phos) 2,000 mg Q4H PRN PO For Phosphorus < 2.5 mg/dL; Start 06/05/17 at 17:15; Stop 06/06/17 at 21:02; Status DC Sodium Phosphate 30 mmol/Sodium Chloride 250 ml @ 42 mls/hr UNSCH PRN IV For Phosphorus < 2.5 mg/dL Last administered on 06/05/17t 17:53; Start 06/05/17 at 17:15; Stop 06/06/17 at 21:02; Status DC Potassium Phosphate (K-Phos) 2,000 mg UNSCH PRN PO/TUBE SEE LABEL COMMENTS; Start 06/05/17 at 17:15; Stop 06/06/17 at 21:02; Status DC Potassium Phosphate 30 mmol/ Sodium Chloride 260 ml @ 42 mls/hr UNSCH PRN IV SEE LABEL COMMENTS; Start 06/05/17 at 17:15; Stop 06/06/17 at 21:02; Status DC Cefepime HCl 1000 mg/Sodium Chloride 100 ml @ 200 mls/hr Q8H IV Last administered on 06/07/17t 13:44; Start 06/05/17 at 21:00; Stop 06/08/17 at 00:44 ; Status DC Tamsulosin HCl (Flomax) 0.4 mg Q12HR PO Last administered on 06/08/17 09:13; Start 06/06/17 at 09:00 Methylprednisolone Sodium Succinate (SoluMEDROL INJ) 40 mg BID IVP Last administered on 06/07/17 09:00; Start 06/06/17 at 21:00; Stop 06/07/17 at 17:51 ; Status DC Prednisone (Deltasone) 10 mg DAILY PO Last administered on 06/08/17 08:59; Start 06/08/17 at 09:00 Diltiazem HCl (Cardizem Inj) 20 mg NOW ONCE IV PUSH Last administered on 18:15; Start 06/07/17 at 18:15; Stop 06/07/17 at 18:16; Status DC Diltiazem HCl 125 mg/Sodium Chloride 125 ml @ 5 mls/hr TITRATE IV Last administered on 06/07/17 18:38; Start 06/07/17 at 18:15 Metoprolol Tartrate (Lopressor) 75 mg BID PO Last administered on 06/08/17 08: 59; Start 06/07/17 at 21:00 Miscellaneous (Pill Splitter) 1 ea UNSCH PRN OTHER SEE LABEL COMMENTS; Start at 18:15 Cefepime HCl 1000 mg/Sodium Chloride 100 ml @ 200 mls/hr Q8H IV Last administered on 06/08/17 09:13; Start 06/08/17 at 01:00 Furosemide (Lasix Inj) 20 mg ONCE ONCE IV PUSH Last administered on 06/08/17 13:17; Start 06/08/17 at 13:15; Stop 06/08/17 at 13:16; Status DC Urinary Catheter: Yes Assessment to: Remove Vascular Central Line Catheter: No A/P Problem List: (1) Hypoxemia ICD Code: R09.02 - Hypoxemia Status: Acute (2) Tobacco abuse ICD Code: Z72.0 - Tobacco use Status: Acute (3) Sepsis ICD Code: A41.9 - Sepsis, unspecified organism Status: Acute (4) COPD (chronic obstructive pulmonary disease) ICD Code: J44.9 - Chronic obstructive pulmonary disease, unspecified Status: Acute (5) Pneumonia ICD Code: J18.9 - Pneumonia, unspecified organism Status: Acute (6) COPD exacerbation ICD Code: J44.1 - Chronic obstructive pulmonary disease with (acute) exacerbation Status: Acute (7) Atrial fibrillation ICD Code: I48.91 - Unspecified atrial fibrillation Status: Acute Assessment and Plan Pneumonia continue on incentive spirometry continue on Mucinex continue on DuoNeb's continue on cefepime on oxygen with incentive spirometry and Mucinex COPD exacerbation NicoDerm patch. Solu-Medrol CONSULT PULMONARY-OFF oF BiPAP --when trying to sleep desats when sleeping BPH START FLOMAX TERRY IN PLACE Tobacco abuse smoking cessation recommended NicoDerm patch Sepsis aggressive fluid rehydration and antibiotics treatment Chronic alcohol use CIWA AFIB- ON CARDIZEM DRIP and amiodarone drip- IN ICU- WAS GIVEN ADENOSINE- on metoprolol 75mg bid HAD MEDS ADJUSTED BY ME- CARDIO DIDNOT RETURN CALL YESTERDAY - OFF CARDIZEM DRIP AGAIN NEEDS ECHO AND CARDIOLOGY CONSULT-- had Echo- seen by CardiOLOGY LOVENOX 70MG SUBQ BID--we'll needs her XARELTO or Eliquis AT discharge ALCOHOL ABUSE- CIWA PROTOCOLS- less withdrawals Continued DVT and GI prophylaxis HAYDER TERRY Discharge Planning [facility] [place] Shekhar Subramanian DO Jun 08, 2017 16:00
[2017-06-08] MEDS: REMOVE OLD NICODERM (NICOTINE) PATCH T-DERMAL SCH (21:00)
[2017-06-09] VITALS (9 sets, daily range): BP systolic 155–187; BP diastolic 70–98; PULSE 73–107; RESP 18–20; TEMP 97.2–98; O2SAT 92–96
[2017-06-09] MEDS: CEFEPIME 1000 MG/NS 100 ML IV SCH ×4 (02:33→08:37)
[2017-06-09] MEDS: LEVOFLOXACIN 750 MG PREMIX INJ 150 ML IV SCH (02:38)
[2017-06-09] MEDS: CHLORHEXIDINE GLUCONATE 2 % 1 PACK (2 CLOTHS) TOP SCH (04:00)
[2017-06-09 06:24] LABS: AUTOMATED NEUTROPHIL # 11.1 TH/MM3 (1.8-7.7); BASOPHIL # 0.1 TH/MM3 (0-0.2); BASOPHIL % 0.7 % (0.0-2.0); EOSINOPHIL # 0.2 TH/MM3 (0-0.4); EOSINOPHIL % 1.3 % (0.0-4.0); HEMATOCRIT 42.5 % (39.0-51.0); LYMPH % 12.2 % (9.0-44.0); LYMPHOCYTE # 1.7 TH/MM3 (1.0-4.8); MEAN CELL VOLUME 91.2 FL (80.0-100.0); MEAN CORPUSCULAR HEMOGLOBIN 29.4 PG (27.0-34.0); MEAN CORPUSCULAR HGB CONC 32.2 % (32.0-36.0); MONO % 6.1 % (0.0-8.0); NEUT % 79.7 % (16.0-70.0); PLATELET COUNT 352 TH/MM3 (150-450); RED BLOOD COUNT 4.66 MIL/MM3 (4.50-5.90); WHITE BLOOD COUNT 13.9 TH/MM3 (4.0-11.0)
[2017-06-09 06:36] LABS: HEMO FLAGS AUTO DIFF
--- NOTE | 2017-06-09 06:51 | RADRPT ---
EXAM DATE/TIME: 06/09/2017 06:08 [facility] COMPARISON: CHEST SINGLE AP, June 06, 2017, 3:08. INDICATIONS : Short of breath, edema, congestion, coughing MEDICAL HISTORY : None. SURGICAL HISTORY : None. ENCOUNTER: Subsequent ACUITY: 1 week PAIN SCORE: 0/10 LOCATION: Bilateral chest FINDINGS: A single view of the chest demonstrates basilar airspace disease and small effusions similar to Augus t . Underlying emphysema. Mild hyperinflation. No pneumothorax. CONCLUSION: Basilar airspace disease and small effusions similar to June 06. Ron Muller MD on June 09, 2017 at 6:49 Board Certified Radiologist. This report was verified electronically.
[2017-06-09 07:22] LABS: BANDS 1 % (0-6); EOSINOPHILS 1 % (0-4); MYELOCYTES 2 % (0-0); POLYS (SEG NEUTROPHILS) 76 % (16-70); WBC DIFF SAMPLE 100
[2017-06-09 07:23] LABS: HYPERSEGMENTED POLYS 1+ (NORMAL); OVALOCYTES 1+ (NORMAL); PLATELET ESTIMATE SMEAR HIGH (NORMAL); PLATELET MORPHOLOGY ENLARGED (NORMAL); SCAN/DIFF FINAL DIFF MANUAL
[2017-06-09 07:27] LABS: ALT (GPT) 32 U/L (12-78); ANION GAP 7 MEQ/L (5-15); AST (GOT) 29 U/L (15-37); BICARBONATE 35.6 MEQ/L (21.0-32.0); BLOOD UREA NITROGEN 12 MG/DL (7-18); CHLORIDE 95 MEQ/L (98-107); GLOMERULAR FILTRATION RATE 134 ML/MIN (>89); MAGNESIUM 2.1 MG/DL (1.5-2.5); POTASSIUM 3.7 MEQ/L (3.5-5.1); SODIUM (NA) 138 MEQ/L (136-145)
[2017-06-09 07:37] LABS: ALKALINE PHOSPHATASE 45 U/L (45-117); TOTAL BILIRUBIN ADULT 0.3 MG/DL (0.2-1.0)
[2017-06-09] MEDS: predniSONE 10 MG TAB PO SCH (08:36)
[2017-06-09] MEDS: NICOTINE 21 MG/24 HR PATCH TD SCH (08:36)
[2017-06-09] MEDS: PANTOPRAZOLE SOD 40 MG DELAYED RELEASE TAB PO SCH (08:36)
[2017-06-09] MEDS: THIAMINE HCL 100 MG TAB PO SCH (08:36)
[2017-06-09] MEDS: DOCUSATE SODIUM 50 MG/SENNA 8.6 MG TAB PO SCH ×2 (08:36→21:00)
[2017-06-09] MEDS: MAGNESIUM OXIDE 400 MG TAB PO SCH ×2 (08:36→21:08)
[2017-06-09] MEDS: guaiFENesin E.R. 600 MG TAB PO SCH ×2 (08:36→21:08)
[2017-06-09] MEDS: TAMSULOSIN HCL 0.4 MG CAP PO SCH ×2 (08:36→21:09)
[2017-06-09] MEDS: METOPROLOL TARTRATE 50 MG TAB PO SCH ×2 (08:37→21:08)
[2017-06-09] MEDS: SODIUM CHLORIDE 0.9% FLUSH 10 ML FLUSH IV FLUSH SCH ×2 (08:37→21:08)
[2017-06-09] MEDS: ENOXAPARIN SODIUM 80 MG/0.8 ML SYRINGE SQ SCH (08:39)
[2017-06-09] MEDS: BUDESONIDE-FORMOTEROL 160/4.5 MCG INHALER INH SCH ×2 (08:39→21:00)
--- NOTE | 2017-06-09 14:30 | HHI.PR ---
Subjective Remarks Patient reports he is feeling okay today. Breathing status is better compared to yesterday. However still get short of breath with activities. Still requiring oxygen. No chest pain. Objective Vitals Vital Signs Date Time Temp Pulse Resp B/P (MAP) Pulse Ox O2 Delivery O2 Flow Rate FiO2 06/09/17 12:00 97.5 81 20 156/73 (100) 95 06/09/17 12:00 Nasal Cannula 2.00 06/09/17 11:01 96 Nasal Cannula 3.00 06/09/17 08:35 Nasal Cannula 2.00 06/09/17 08:00 97.3 81 20 170/81 (110) 93 06/09/17 07:51 84 06/09/17 04:00 97.6 78 18 170/78 (108) 95 06/09/17 00:00 98.0 73 18 155/70 (98) 95 06/08/17 20:15 Nasal Cannula 2.00 06/08/17 20:00 97.7 90 18 178/80 (112) 92 06/08/17 19:45 84 06/08/17 16:00 Nasal Cannula 2.00 06/08/17 16:00 97.6 72 18 144/69 (94) 96 I/O 06/08/17 06/08/17 06/08/17 06/09/17 06/09/17 06/09/17 07:00 15:00 23:00 07:00 15:00 23:00 Intake Total 928 ml 1185 ml 590 ml 100 ml Output Total 1900 ml 3000 ml 800 ml Balance -972 ml -1815 ml -210 ml 100 ml Intake Oral 500 ml 960 ml 340 ml IV Total 428 ml 225 ml 250 ml 100 ml Output Urine Total 1900 ml 3000 ml 800 ml # Bowel Movements 2 3 Result Diagram: 06/09/17 0435 06/09/17 0435 Imaging Last Impressions Chest X-Ray 06/06/17 0600 Signed Impressions: Service Date/Time: Tuesday, June 06, 2017 03:08 - CONCLUSION: 1. Basilar airspace consolidation and small effusions that have developed since June 03. Ron Muller MD Chest CT 06/04/172026 Signed Impressions: Service Date/Time: May 21:53 - CONCLUSION: 1. Moderate to severe emphysema near the lung apices. 2. Dependent consolidation and the lines with possible bronchopneumonia left lower lobe. Small bilateral effusions. 3. Moderate to severe coronary calcifications. No adenopathy. Ron Muller MD Objective Remarks GENERAL: Appear older than stated age. Frail. CARDIOVASCULAR: Normal rate and regular rhythm without murmurs, gallops, or rubs. RESPIRATORY: Air movement is fair. Diminished breath sounds at the bases bilaterally. No wheezing. GASTROINTESTINAL: Abdomen soft, non-tender, non-distended. Normal active bowel sounds MUSCULOSKELETAL: Extremities without cyanosis, or edema. NEURO: Alert & Oriented x4 to person, place, time, situation. Moves all ext x4 PSYCH: Appropriate mood and affect. A/P Problem List: (1) Hypoxemia ICD Code: R09.02 - Hypoxemia Status: Acute (2) Tobacco abuse ICD Code: Z72.0 - Tobacco use Status: Acute (3) Sepsis ICD Code: A41.9 - Sepsis, unspecified organism Status: Acute (4) COPD (chronic obstructive pulmonary disease) ICD Code: J44.9 - Chronic obstructive pulmonary disease, unspecified Status: Acute (5) Pneumonia ICD Code: J18.9 - Pneumonia, unspecified organism Status: Acute (6) COPD exacerbation ICD Code: J44.1 - Chronic obstructive pulmonary disease with (acute) exacerbation Status: Acute (7) Atrial fibrillation ICD Code: I48.91 - Unspecified atrial fibrillation Status: Acute Assessment and Plan 71-year-old male with: Community-acquired pneumonia: - Continue Levaquin. DC cefepime. - Breathing treatments, supplemental oxygen as needed. Pulmonology following. Sepsis aggressive fluid rehydration and antibiotics treatment Chronic alcohol use CIWA A. fib with RVR, status post Cardizem drip and amiodarone. Rate is now controlled on metoprolol 75 mg twice a day. Agree a fairly likely exacerbated by COPD exacerbation/pneumonia/alcohol withdrawal. Chads 2 is 0. Given alcohol abuse and persistent risk of fall. Patient is not a good candidate for oral anticoagulant. Continue rate control Start Aspirin 325 mg daily. Change Lovenox to DVT prophylaxis dose. COPD exacerbation: - Continue breathing treatments, oral prednisone, incentive spirometry. - Pulmonology following. Repeat chest x-ray today with no significant change. Alcohol Abuse- CIWA PROTOCOLS- less withdrawals symptoms. BPH: - Continue Flomax. Tobacco abuse: smoking cessation recommended. NicoDerm patch GI prophylaxis: Stool softener PRN constipation. DVT PPx: Brinda Thomason MD Jun 09, 2017 14:30
--- NOTE | 2017-06-09 18:30 | HHI.PR ---
Subjective Remarks Alert and on O2 at 4L HR is better and on metoprolol .No wheezing. On IV Antibiotics.Better today but very weak. . On Cardizem, Amiodarone.Needs home o2 Objective Vital Signs Date Time Temp Pulse Resp B/P (MAP) Pulse Ox O2 Delivery O2 Flow Rate FiO2 06/09/17 17:02 96 Nasal Cannula 3.00 06/09/17 16:00 97.7 88 18 158/82 (107) 96 06/09/17 16:00 Nasal Cannula 2.00 06/09/17 12:00 97.5 81 20 156/73 (100) 95 06/09/17 12:00 Nasal Cannula 2.00 06/09/17 11:01 96 Nasal Cannula 3.00 06/09/17 08:35 Nasal Cannula 2.00 06/09/17 08:00 97.3 81 20 170/81 (110) 93 06/09/17 07:51 84 06/09/17 04:00 97.6 78 18 170/78 (108) 95 06/09/17 00:00 98.0 73 18 155/70 (98) 95 06/08/17 20:15 Nasal Cannula 2.00 06/08/17 20:00 97.7 90 18 178/80 (112) 92 06/08/17 19:45 84 I/O 06/08/17 06/08/17 06/08/17 06/09/17 06/09/17 06/09/17 07:00 15:00 23:00 07:00 15:00 23:00 Intake Total 928 ml 1185 ml 590 ml 100 ml 2 ml Output Total 1900 ml 3000 ml 800 ml Balance -972 ml -1815 ml -210 ml 100 ml 2 ml Intake Oral 500 ml 960 ml 340 ml IV Total 428 ml 225 ml 250 ml 100 ml 2 ml Output Urine Total 1900 ml 3000 ml 800 ml # Bowel Movements 2 3 Result Diagram: 06/09/1743406/09/17434 Objective Remarks PHYSICAL EXAMINATION GENERAL: This elderly thinly built white male who is alert and oriented. HEENT: Head normocephalic. Pupils are reactive. Tongue was moist. Throat is clear. NECK: Supple with no venous distension. No thyromegaly. No lymphadenopathy. CHEST: Equal movements with an increased AP diameter with mild wheezes over both lung perez. Prolonged expirations with occ basal crackles. HEART: Heart sounds are irregularly irregular. S1-S2 and without murmur. ABDOMEN: Soft, no organomegaly. Bowel sounds are faint. EXTREMITIES: Decreased pulses. Mild edema ,and there is no calf tenderness. NEURO: Reflexes are 1+ with no gross motor deficits. Cranial nerves are grossly intact. SKIN: No lesions observed. Assessment and Plan Assessment and Plan IMPRESSION 1. COPD with acute exacerbation. 2. Hypoxemic and hypercapnic respiratory failure. 3. He has atrial fibrillation with rapid ventricular response. 4. Nicotine dependency. Plan : 1. Continue O2 at 2 l 2. Prednisone 10 mg daily 3. Cont Amiodarone, Metoprolol 4. Cont Nebs tid with duoneb,. 5. Arrange home O2 at 2 L. 6. CBC,BMP PFT in am 7. Switch to PO ceftin 500 mg bid and D/C Clay Rollins MD Jun 09, 2017 18:30
[2017-06-09] MEDS: REMOVE OLD NICODERM (NICOTINE) PATCH T-DERMAL SCH (21:00)
[2017-06-09] MEDS: CEFUROXIME AXETIL 500 MG TAB PO SCH (21:08)
[2017-06-10] VITALS: BP 165/77; PULSE 82; RESP 20; TEMP 97.6; O2SAT 96
[2017-06-10 04:00] VITALS: BP 165/77; PULSE 82; RESP 20; TEMP 97.7; O2SAT 96
[2017-06-10] MEDS: CHLORHEXIDINE GLUCONATE 2 % 1 PACK (2 CLOTHS) TOP SCH (04:00)
[2017-06-10 06:16] LABS: HEMATOCRIT 40.4 % (39.0-51.0); MEAN CELL VOLUME 90.6 FL (80.0-100.0); MEAN CORPUSCULAR HEMOGLOBIN 27.6 PG (27.0-34.0); MEAN CORPUSCULAR HGB CONC 30.4 % (32.0-36.0); PLATELET COUNT 298 TH/MM3 (150-450); RED BLOOD COUNT 4.46 MIL/MM3 (4.50-5.90); RED CELL DISTRIBUTION WIDTH 13.7 % (11.6-17.2); REVIEW FLAG FINAL; WHITE BLOOD COUNT 14.8 TH/MM3 (4.0-11.0)
[2017-06-10 06:49] LABS: BICARBONATE 37.9 MEQ/L (21.0-32.0); POTASSIUM 3.4 MEQ/L (3.5-5.1)
[2017-06-10 08:00] VITALS: BP 164/75; PULSE 83; RESP 19; TEMP 97.3; O2SAT 97
[2017-06-10] MEDS ORDERED: ASPIRIN 325 MG TAB PO SCH (09:00)
[2017-06-10] MEDS ORDERED: amLODIPine BESYLATE 5 MG TAB PO SCH (09:00)
[2017-06-10] MEDS: BUDESONIDE-FORMOTEROL 160/4.5 MCG INHALER INH SCH (09:00)
[2017-06-10] MEDS: predniSONE 10 MG TAB PO SCH (09:13)
[2017-06-10] MEDS: CEFUROXIME AXETIL 500 MG TAB PO SCH (09:13)
[2017-06-10] MEDS: SODIUM CHLORIDE 0.9% FLUSH 10 ML FLUSH IV FLUSH SCH (09:13)
[2017-06-10] MEDS: TAMSULOSIN HCL 0.4 MG CAP PO SCH (09:14)
[2017-06-10] MEDS: METOPROLOL TARTRATE 50 MG TAB PO SCH (09:14)
[2017-06-10] MEDS: DOCUSATE SODIUM 50 MG/SENNA 8.6 MG TAB PO SCH (09:15)
[2017-06-10] MEDS: NICOTINE 21 MG/24 HR PATCH TD SCH (09:15)
[2017-06-10] MEDS: guaiFENesin E.R. 600 MG TAB PO SCH (09:15)
[2017-06-10] MEDS: THIAMINE HCL 100 MG TAB PO SCH (09:15)
[2017-06-10] MEDS: PANTOPRAZOLE SOD 40 MG DELAYED RELEASE TAB PO SCH (09:15)
[2017-06-10] MEDS: MAGNESIUM OXIDE 400 MG TAB PO SCH (09:16)
[2017-06-10 12:00] VITALS: BP 134/64; PULSE 71; RESP 20; TEMP 97.6; O2SAT 96
[2017-06-10] MEDS ORDERED: SYMB160A INH (14:12)
[2017-06-10] MEDS ORDERED: CEFU1TAB20 PO (14:12)
[2017-06-10] MEDS ORDERED: ASPI325T PO (14:12)
[2017-06-10] MEDS ORDERED: METO-309 PO (14:12)
[2017-06-10] MEDS ORDERED: AMLO5 PO (14:12)
[2017-06-10] MEDS ORDERED: TAMS5CAP PO (14:12)
--- NOTE | 2017-06-10 14:13 | HHI.DCPOC ---
Discharge Care Plan Diagnosis: (1) Sepsis (2) Pneumonia (3) COPD exacerbation (4) Atrial fibrillation (5) Tobacco abuse (6) Hypoxemia Goals to Promote Your Health * To prevent worsening of your condition and complications * To maintain your health at the optimal level Directions to Meet Your Goals Take your medications as prescribed Follow your dietary instruction Follow activity as directed Keep your appointments as scheduled Take your immunizations and boosters as scheduled If your symptoms worsen call your PCP, if no PCP go to Urgent Care Center or Emergency Room Smoking is Dangerous to Your Health. Avoid second hand smoke Call the 24-hour hour crisis hotline for domestic abuse at Brinda Youssef MD Jun 10, 2017 14:13
--- NOTE | 2017-06-10 14:14 | HHI.FF ---
Face to Face Verification Diagnosis: (1) Sepsis (2) Pneumonia (3) COPD exacerbation (4) Atrial fibrillation (5) Tobacco abuse (6) Hypoxemia Physical Therapy Order: Evaluate and Treat, Improve ambulation, Strength and gait training Home Health Nursing Order: Medical education Signs/symptoms of disease process Oxygen administration education Nursing assessment with vital signs I have seen patient Kulwinder Montaño on 06/10/17. My clinical findings support the need for the requested home health care services because: Patient has SOB Deconditioned w/ increased weakness Med compliance is questionable Need for psychosocial assistance High risk of falls I certify that my clinical findings support that this patient is homebound because: Hx COPD- exertion dyspnea/weakness Unsteady gait/balance Need for psychosocial assistance Brinda Youssef MD Jun 10, 2017 14:14
--- NOTE | 2017-06-10 14:22 | HHI.DS ---
Discharge Summary Admission Date Jun 03, 2017 at 12:54 Discharge Date: Jun 10, 2017 Admitting Diagnosis sepsis, pneumonia, hypoxemia, tobacco abuse. (1) Hypoxemia ICD Code: R09.02 - Hypoxemia Status: Acute (2) Tobacco abuse ICD Code: Z72.0 - Tobacco use Status: Acute (3) Sepsis ICD Code: A41.9 - Sepsis, unspecified organism Status: Acute (4) COPD (chronic obstructive pulmonary disease) ICD Code: J44.9 - Chronic obstructive pulmonary disease, unspecified Status: Acute (5) Pneumonia ICD Code: J18.9 - Pneumonia, unspecified organism Status: Acute (6) COPD exacerbation ICD Code: J44.1 - Chronic obstructive pulmonary disease with (acute) exacerbation Status: Acute (7) Atrial fibrillation ICD Code: I48.91 - Unspecified atrial fibrillation Status: Acute Procedures None Brief History - From Admission History of present illness from the admitting physician. This is a 71-year-old gentleman with a history of tobacco use, unknown past medical history, who presents today VIA EMS with cough and shortness of breath. The patient states that he's been in bed since Thursday. He states he's been weak and short of breath since then. When paramedics arrived they found his O2 sat to be 82. He is placed on 100% nonrebreather which brought up to 99% . He also reports low-grade fevers. The patient felt better with the O2. He has not seen a doctor since 2007. He says at that time he had no medical issues. He does smoke half pack of cigarettes had previously been up to 2 packs a day. Then down to one pack and then now to half pack a day. And states he drinks one to 2 beers per day. Is not currently taking any medication. His is been wanting him to come to the hospital since last week CBC/BMP: 06/10/17 0458 06/10/17 0458 Significant Findings Laboratory Tests Test 06/08/17 06:27 06/09/17 04:35 06/10/17 04:58 White Blood Count 14.7 TH/MM3 (4.0-11.0) 13.9 TH/MM3 (4.0-11.0) 14.8 TH/MM3 (4.0-11.0) Red Blood Count 4.37 MIL/MM3 (4.50-5.90) 4.46 MIL/MM3 (4.50-5.90) Hemoglobin 12.9 GM/DL (13.0-17.0) 12.3 GM/DL (13.0-17.0) Neutrophils (%) (Auto) 83.6 % (16.0-70.0) 79.7 % (16.0-70.0) Neutrophils # (Auto) 12.3 TH/MM3 (1.8-7.7) 11.1 TH/MM3 (1.8-7.7) Neutrophils % (Manual) 79 % (16-70) 76 % (16-70) Monocytes % 9 % (0-8) 11 % (0-8) Neutrophils # (Manual) 12.1 TH/MM3 (1.8-7.7) 11.0 TH/MM3 (1.8-7.7) Myelocytes 3 % (0-0) 2 % (0-0) Total Protein 5.5 GM/DL (6.4-8.2) 5.7 GM/DL (6.4-8.2) Albumin 2.1 GM/DL (3.4-5.0) 2.2 GM/DL (3.4-5.0) Calcium Level 7.6 MG/DL (8.5-10.1) 8.3 MG/DL (8.5-10.1) 8.4 MG/DL (8.5-10.1) Phosphorus Level 2.4 MG/DL (2.5-4.9) Hypersegmented Polys 1+ (NORMAL) Platelet Estimate HIGH (NORMAL) Platelet Morphology Comment ENLARGED (NORMAL) Ovalocytes 1+ (NORMAL) Chloride Level 95 MEQ/L (98-107) 94 MEQ/L (98-107) Carbon Dioxide Level 35.6 MEQ/L (21.0-32.0) 37.9 MEQ/L (21.0-32.0) Mean Corpuscular Hemoglobin Concent 30.4 % (32.0-36.0) Creatinine 0.59 MG/DL (0.60-1.30) Potassium Level 3.4 MEQ/L (3.5-5.1) Imaging Last Impressions Chest X-Ray 06/09/17 0600 Signed Impressions: Service Date/Time: Friday, June 09, 2017 06:08 - CONCLUSION: Basilar airspace disease and small effusions similar to June 06. Ron Muller MD Chest CT 06/04/172026 Signed Impressions: Service Date/Time: May 21:53 - CONCLUSION: 1. Moderate to severe emphysema near the lung apices. 2. Dependent consolidation and the lines with possible bronchopneumonia left lower lobe. Small bilateral effusions. 3. Moderate to severe coronary calcifications. No adenopathy. Ron Muller MD PE at Discharge GENERAL: Appear older than stated age. Frail. CARDIOVASCULAR: Normal rate and regular rhythm without murmurs, gallops, or rubs. RESPIRATORY: Air movement is fair. Diminished breath sounds at the bases bilaterally. No wheezing. GASTROINTESTINAL: Abdomen soft, non-tender, non-distended. Normal active bowel sounds MUSCULOSKELETAL: Extremities without cyanosis, or edema. NEURO: Alert & Oriented x4 to person, place, time, situation. Moves all ext x4 PSYCH: Appropriate mood and affect. Pt update on day of discharge Patient reports he is feeling better. Breathing status has improved. Hospital Course 71-year-old male admitted with sepsis secondary to pneumonia. Patient was also found to have A. fib with RVR. Evaluation and treatment course detailed below: Sepsis secondary to Community-acquired pneumonia: Patient initially treated with broad-spectrum antibiotics including Levaquin and cefepime. He was followed by pulmonology. Antibiotics the escalated. He was discharged home on cefuroxime for an additional 7 days to complete the course of treatment. Patient was given breathing treatment and supplemental oxygen as needed. Symptoms improved. He was deemed stable for discharge. A. fib with RVR, status post Cardizem drip and amiodarone. Rate is now controlled on metoprolol 75 mg twice a day. Agree that afib is likely exacerbated by COPD exacerbation/pneumonia/alcohol withdrawal. Chads 2 is 0. Given alcohol abuse and persistent risk of fall. Patient is not a good candidate for oral anticoagulant. Continue rate control. Patient to continue with Aspirin 325 mg daily. Chronic alcohol use: Patient was treated per [facility] protocol. COPD exacerbation: -Patient treated with steroids and breathing treatments. He was followed by pulmonology. He was given supplemental oxygen. Patient failed a home oxygen walk test. He is discharged on home oxygen. He is advised to follow-up outpatient with pulmonology. BPH: - Continue Flomax. Tobacco abuse: smoking cessation recommended and discussed at length with the patient. Pt Condition on Discharge: Good Discharge Disposition: Disch w/ Home Health Serv Discharge Time: > 30 minutes Discharge Instructions DIET: Follow Instructions for: Heart Healthy Diet Activities you can perform: Regular-No Restrictions Follow up Referrals: PCP Follow-up New Medications: Oxygen (O2) (Oxygen (O2)) Device LITER JEMMA.CANULA CONTINUOUS for Prevent Hypoxemia, #2 Oxygen Concentrator Portable Gaseous 2 L/min via Nasal Canula Continuous For 99 months Amlodipine (Norvasc) 5 Mg Tab 5 MG PO DAILY, #30 TAB Aspirin (Aspirin) 325 Mg Tab 325 MG PO DAILY, #30 TAB Budesonide-Formoterol Inh (Symbicort Inh) 160-4.5 Mcg/Act Aero 1 PUFF INH Q12HR, #1 INHALER Cefuroxime (Cefuroxime) 500 Mg Tab 500 MG PO Q12HR, #14 TAB Metoprolol Tartrate (Lopressor) 50 Mg Tab 75 MG PO BID, #60 TAB Tamsulosin (Flomax) 0.4 Mg Cap 0.4 MG PO DAILY, #30 CAP Brinda Youssef MD Jun 10, 2017 14:22
[2017-06-10 14:27] VITALS: O2SAT 95
[2017-06-10] MEDS ORDERED: OXYGENDME NAS.CANULA ×2 (14:33→15:40)
[2017-06-10 16:00] VITALS: BP 155/71; PULSE 81; RESP 20; TEMP 98; O2SAT 96
[2017-06-10] MEDS ORDERED: ENOXAPARIN SODIUM 40 MG/0.4 ML SYRINGE SQ SCH (16:00)
--- NOTE | 2017-06-30 10:31 | RSPPFT ---
DATE OF PROCEDURE: 06/10/17 COMMENTS: Spirometry demonstrates an FEV1 of 0.4 at 13% of predicted, FVC of 1.4 at 33%, FEF 25-75 is 5%. Post-bronchodilator study demonstrated improvements in the FVC. Lung volumes were not completed. Flow volumes loops suggest severe obstruction. IMPRESSION: 1. Severe obstructive disease. 2. Significant response to use of bronchodilator indicating some reversibility.
== END 2017-06-10 17:32 | disposition home health service (06) | DRG 871 ==
LOC: NEPC 09:30 → NEDA 12:54 → N04B 19:40 → HIMW 06-04 01:05 → N04A 06-06 22:13
PROVIDERS: ADMIT Family Medicine; ATTEND Family Medicine
PROC: 5A09457 Assistance with Respiratory Ventilation, 24-96 Consecutive Hours, Continuous Positive Airway Pressure (ICD-10-PCS; principal; 2017-06-03)
DX: A41.9 Sepsis, unspecified organism (principal); J44.0 Chronic obstructive pulmonary disease with (acute) lower respiratory infection; J18.9 Pneumonia, unspecified organism; J96.91 Respiratory failure, unspecified with hypoxia; J96.92 Respiratory failure, unspecified with hypercapnia; J44.1 Chronic obstructive pulmonary disease with (acute) exacerbation; F10.230 Alcohol dependence with withdrawal, uncomplicated; I48.91 Unspecified atrial fibrillation; F17.210 Nicotine dependence, cigarettes, uncomplicated; N40.1 Benign prostatic hyperplasia with lower urinary tract symptoms; R33.8 Other retention of urine
CPT/HCPCS: 36600; 71010; 71250; 80048; 80053; 80061; 81001; 82550; 82805; 83605; 83735; 83880; 84100; 84484; 85007; 85025; 85027; 85379; 85610; 87040; 87070; 87086; 87205; 87641; 93005; 93306; 94002; 94003; 94060; 94150; 94620; 94640; 94664; 96374; J0153; J0282; J0456; J0692; J0696; J1650; J1940; J1956; J2930; J7030; J7040; J7050; J7060; J7512